=== PATIENT | female | born 1955 | race Caucasian/White ===

== ENCOUNTER 2016-11-03 10:39 | Inpatient (IN) | payer OTHER ==
[~2016-11-03] VITALS: Ht 160 cm; Wt 79.7 kg
[~2016-11-03 10:39] MED LIST: ALBU1AER9 INH; GABA1CAP4 PO; INSDGIPEN SC; METF1000 PO; OXY/15 PO; SERT50TA PO
[2016-11-03] MEDS ORDERED: MoRPHine SULFATE 4 MG/ML 1 ML CARP\\VIAL IV STA ×2 (10:59→15:08)
[2016-11-03] MEDS ORDERED: SODIUM CHLORIDE 0.9% 1000ML 1,000 ML IV STA ×2 (10:59→11:29)
[2016-11-03] MEDS ORDERED: VNTHFA/IN INH (11:13)
[2016-11-03] MEDS ORDERED: OPTIRAY 320 IV PRN (11:15)
[2016-11-03 11:17] LABS: URINE APPEARANCE CLEAR (CLEAR); URINE BILIRUBIN NEG (NEG); URINE COLOR YELLOW; URINE NITRITE NEG (NEG); URINE SPECIFIC GRAVITY 1.044 (1.000-1.030); UROBILINOGEN NEG (NEG); ZZUR CULT IF INDIC CLEAN CATCH NO
[2016-11-03 11:18] LABS: MANUAL MICROSCOPIC REQUIRED? NO; REVIEW REQ? NO
[2016-11-03 11:33] LABS: HEMATOCRIT 45.8 % (37-47); MEAN CELL VOLUME 82.7 fL (80-100); MEAN CORPUSCULAR HGB CONC 33.8 g/dl (32-36); MEAN PLATELET VOLUME 11.3 fL (7.4-10.4); PLATELET COUNT 248 K/uL (130-400); RED BLOOD COUNT 5.54 M/uL (4.2-5.4); WHITE BLOOD COUNT 11.41 K/uL (4.8-10.8)
[2016-11-03 11:55] LABS: BUN/CREATININE RATIO 17.9 (10-20); CALCIUM 9.6 mg/dl (8.5-10.1); CREATININE 0.72 mg/dl (0.60-1.20); POTASSIUM 3.9 mmol/L (3.5-5.1)
[2016-11-03 12:01] LABS: BASO % 0.4 %; BASO ABS # 0.04 K/uL (0-0.2); COMPLETE YES; EOS % 0.9 %; IG% 0.3 %; LYMPH % 44.2 %; LYMPH ABS # 5.04 K/uL (1.2-3.4); MONO % 4.6 %; NEUT % 49.6 %
[2016-11-03 12:07] LABS: BETA-HYDROXYBUTYRATE 1.5 mg/dL (0.2-2.81)
--- NOTE | 2016-11-03 13:53 | DIAGNOSTIC IMAGING REPORT ---
ABDOMEN AND PELVIS CT WITH IV CONTRAST CT DOSE: 696.65 mGy.cm HISTORY: Pain generalized abd and pelvic pain, bilat flank pain TECHNIQUE: Multiaxial CT images of the abdomen and pelvis were performed following the use of intravenous contrast. COMPARISON STUDY: 02/04/2016 FINDINGS: The lung bases are clear. Liver spleen and pancreas are uniform. Mild prominence of the biliary ductal system post cholecystectomy. This is stable compared to the prior exam. Kidneys are negative for hydronephrosis. The severity subtle wall thickening of the small bowel with slight degree of postcontrast hyperemia. Mild/moderate enteritis is considered. Bladder is midline. No evidence of bowel obstructive change. No evidence for abscess collection or obstruction. IMPRESSION: 1. Findings consistent with a generalized nonspecific small bowel enteritis. 2. No evidence for abscess collection or obstruction. 3. Prior cholecystectomy. Electronically signed by: Nick Burgess M.D. 11/03/2016 1:51 PM Dictated Date/Time: 11/03/2016 1:47 PM
--- NOTE | 2016-11-03 16:03 | EMERGENCY ROOM VISIT NOTE ---
History First contact with patient: 10:47 Chief Complaint: PAIN (GENERALIZED) Stated Complaint: PAIN IN HIPS, FREQUENT URINATION History of Present Illness The patient is a 60 year old female who presents to the Emergency Room with complaints of bilateral flank pain, abdominal pain, dysuria that has been progressively worsening for the past 4 days. Pain is constant, achy and sometimes sharp, radiates from the back into the upper abdomen, 11/01. She states that she thinks she has a UTI, and states she has had these before that caused a kidney infection and she had been admitted for this. She has been taking Tylenol and Aleve for pain with no improvement. She reports associated chills, nausea. She denies chest pain, shortness of breath, vomiting, diarrhea , constipation, rash. Review of Systems A complete 10 point review of systems was reviewed with the patient with pertinent positives and negatives as per history of present illness. All else were negative. Past Medical/Surgical History Medical Problems: (1) Abscess and cellulitis (2) COPD (chronic obstructive pulmonary disease) (3) DM (diabetes mellitus) (4) Leukocytosis Family History Patient reports no known family medical history. Social History Smoking Status: Current Every Day Smoker Alcohol Use: none Drug Use: none Marital Status: single Housing Status: lives alone Occupation Status: disabled Current/Historical Medications Scheduled Albuterol Hfa (Ventolin Hfa), 2-4 PUFFS INH Q6H Gabapentin (Gabapentin), 300 MG PO QID Insulin Glargine (Lantus Solostar), 15 UNIT SC QAM Metformin Hcl (Glucophage), 1 TAB PO BID Sertraline (Zoloft), 50 MG PO DAILY Allergies Coded Allergies: No Known Allergies (Unverified , 11/03/16) Physical Exam Vital Signs Date Time Temp Pulse Resp B/P (MAP) Pulse Ox O2 Delivery O2 Flow Rate FiO2 11/03/16 15:39 75 18 93 Room Air 11/03/16 13:30 65 18 150/64 94 Room Air 11/03/16 10:45 36.8 96 20 143/75 93 Room Air Physical Exam CONSTITUTIONAL: No acute distress. Well appearing and well nourished. Alert and oriented X 4 with normal affect. HEENT: Normocephalic, atraumatic. Pupils equal, round and reactive to light, EOMI. TMs normal. Pharynx normal. NECK: Supple, full active range of motion without discomfort. RESPIRATORY: Clear to auscultation bilaterally with no wheezing, crackles, rhonchi or stridor. Equal expansion bilaterally. CARDIOVASCULAR: Regular rate and rhythm with no murmurs, rubs or gallops. Normal peripheral perfusion. No edema. GASTROINTESTINAL: Moderate diffuse tenderness in the upper abdomen. + CVAT bilaterally. Soft, nondistended. Bowel sounds present in all quadrants. MUSCULOSKELETAL: Full range of motion of all joints without discomfort. INTEGUMENTARY: No rash or other significant dermatologic conditions noted. NEUROLOGIC: Cranial nerves II-XII grossly intact. No focal neurologic deficits noted. Medical Decision & Procedures ER Provider Diagnostic Interpretation: ABDOMEN AND PELVIS CT WITH IV CONTRAST CT DOSE: 696.65 mGy.cm HISTORY: Pain generalized abd and pelvic pain, bilat flank pain TECHNIQUE: Multiaxial CT images of the abdomen and pelvis were performed following the use of intravenous contrast. COMPARISON STUDY: 02/04/2016 FINDINGS: The lung bases are clear. Liver spleen and pancreas are uniform. Mild prominence of the biliary ductal system post cholecystectomy. This is stable compared to the prior exam. Kidneys are negative for hydronephrosis. The severity subtle wall thickening of the small bowel with slight degree of postcontrast hyperemia. Mild/moderate enteritis is considered. Bladder is midline. No evidence of bowel obstructive change. No evidence for abscess collection or obstruction. IMPRESSION: 1. Findings consistent with a generalized nonspecific small bowel enteritis. 2. No evidence for abscess collection or obstruction. 3. Prior cholecystectomy. Laboratory Results 11/03/16 11:15 Red Blood Count 5.54, Mean Corpuscular Volume 82.7, Mean Corpuscular Hemoglobin 28.0, Mean Corpuscular Hemoglobin Concent 33.8, Mean Platelet Volume 11.3, Neutrophils (%) (Auto) 49.6, Lymphocytes (%) (Auto) 44.2, Monocytes (%) (Auto) 4.6, Eosinophils (%) (Auto) 0.9, Basophils (%) (Auto) 0.4, Neutrophils # (Auto) 5.68, Lymphocytes # (Auto) 5.04, Monocytes # (Auto) 0.52, Eosinophils # (Auto) 0.10, Basophils # (Auto) 0.04 11/03/16 11:15 Test 11/03/16 10:50 11/03/16 11:15 11/03/16 13:29 Urine Color YELLOW Urine Appearance CLEAR (CLEAR) Urine pH 5.0 (4.5-7.5) Urine Specific [place] 1.044 (1.000-1.030) Urine Protein NEG (NEG) Urine Glucose (UA) 3+ (NEG) Urine Ketones NEG (NEG) Urine Occult Blood NEG (NEG) Urine Nitrite NEG (NEG) Urine Bilirubin NEG (NEG) Urine Urobilinogen NEG (NEG) Urine Leukocyte Esterase NEG (NEG) White Blood Count 11.41 K/uL (4.8-10.8) Red Blood Count 5.54 M/uL (4.2-5.4) Hemoglobin 15.5 g/dL (12.0-16.0) Hematocrit 45.8 % (37-47) Mean Corpuscular Volume 82.7 fL (80-100) Mean Corpuscular Hemoglobin 28.0 pg (25-34) Mean Corpuscular Hemoglobin Concent 33.8 g/dl (32-36) Platelet Count 248 K/uL (130-400) Mean Platelet Volume 11.3 fL (7.4-10.4) Neutrophils (%) (Auto) 49.6 % Lymphocytes (%) (Auto) 44.2 % Monocytes (%) (Auto) 4.6 % Eosinophils (%) (Auto) 0.9 % Basophils (%) (Auto) 0.4 % Neutrophils # (Auto) 5.68 K/uL (1.4-6.5) Lymphocytes # (Auto) 5.04 K/uL (1.2-3.4) Monocytes # (Auto) 0.52 K/uL (0.11-0.59) Eosinophils # (Auto) 0.10 K/uL (0-0.5) Basophils # (Auto) 0.04 K/uL (0-0.2) RDW Standard Deviation 44.5 fL (36.4-46.3) RDW Coefficient of Variation 14.8 % (11.5-14.5) Immature Granulocyte % (Auto) 0.3 % Immature Granulocyte # (Auto) 0.03 K/uL (0.00-0.02) Anion Gap 13.0 mmol/L (3-11) Est Creatinine Clear Calc Drug Dose 82.0 ml/min Estimated GFR () 104.8 Estimated GFR (Non- 90.4 BUN/Creatinine Ratio 17.9 (10-20) Calcium Level 9.6 mg/dl (8.5-10.1) Total Bilirubin 0.6 mg/dl (0.2-1) Direct Bilirubin 0.1 mg/dl (0-0.2) Aspartate Amino Transf (AST/SGOT) 34 U/L (15-37) Alanine Aminotransferase (ALT/SGPT) 124 U/L (12-78) Alkaline Phosphatase 143 U/L (45-117) Total Protein 7.6 gm/dl (6.4-8.2) Albumin 3.4 gm/dl (3.4-5.0) Lipase 1126 U/L (73-393) Beta-Hydroxybutyric Acid 1.50 mg/dL (0.2-2.81) Bedside Lactic Acid Venous 2.13 mmol/L (0.90-1.70) Medications Administered Medications (Trade) Dose Ordered Sig/Mckenzie Route Start Time Stop Time Status Last Admin Dose Admin Sodium Chloride 1,000 ml @ 999 mls/hr Q1H1M STAT IV 11/03/16 10:59 11/03/16 11:59 DC 11/03/16 11:15 999 MLS/HR Morphine Sulfate (MoRPHine SULFATE INJ) 4 mg NOW STAT IV 11/03/16 10:59 11/03/16 11:05 DC 11/03/16 11:37 4 MG Sodium Chloride 1,000 ml @ 999 mls/hr Q1H1M STAT IV 11/03/16 11:29 11/03/16 12:29 DC 11/03/16 12:05 999 MLS/HR Morphine Sulfate (MoRPHine SULFATE INJ) 4 mg NOW STAT IV 11/03/16 15:08 11/03/16 15:09 DC 11/03/16 15:17 4 MG Medical Decision CC: Patient presenting with complaint of bilateral flank pain, low back pain, dysuria, and feeling ill Interpretation of Labs: Mild leukocytosis, no anemia, hyperglycemia, no other significant electrolyte abnormalities, normal renal function. Significant only elevated lipase with elevated liver enzymes, though T bili is normal. Elevated lactic acid, improved after IV fluids. No UTI, but large glucose noted on UA which may account for dysuria. Differential Diagnosis: Includes, but not limited to UTI, pyelonephritis, gastritis, musculoskeletal pain, pancreatitis, choledocholithiasis, intra- abdominal infection, sepsis, among others. Medication Reconciliation: I attest that I have personally reviewed the patient' s current medication list. Vital signs review: I reviewed the patient's vital signs and interpret them as follows: T: Afebrile; BP: Hypertensive; HR: Tachycardic; RR: Within normal limits; Pulse Ox: Within normal limits on room air. Blood pressure screening: The patient was found to have an elevated blood pressure and was referred to their primary doctor for recheck and further treatment. Summary: Patient was evaluated at bedside, history of physical exam performed. Patient is alert and in no acute distress, but appears uncomfortable and in pain. She has diffuse tenderness across the upper abdomen and bilateral CVA tenderness. Neurologic exam is normal with no focal deficits, normal strength and sensation in the lower extremities. Orders were placed at bedside for labs, urinalysis, IV fluids, CT abdomen/ pelvis to evaluate for pyelonephritis or other acute abdominal issue. Patient discussed with Dr. Vela, who agrees with my assessment and plan. Labs reviewed as above, significant for leukocytosis, elevated lactic acid, and elevated lipase with increased liver enzymes. CT of the abdomen/pelvis shows generalized nonspecific small bowel enteritis, which is of unknown significance given patient's lack of GI symptoms. I discussed CT with the radiologist, no evidence for acute pancreatitis or pancreatic abscess/mass on CT. Patient reassessed multiple times throughout ED stay, she continues to require IV pain medication for management of her pain. Right upper quadrant ultrasound pending to evaluate for choledocholithiasis as possible cause acute pancreatitis. Patient updated on all results and plan for admission, she is agreeable to this. Patient discussed with Dr. Tran, hospitalist, who agrees to admission. Impression Primary Impression: Pancreatitis, acute Departure Information Dispostion Admitted as an inpatient Condition FAIR Referrals Vanessa Fontenot MD (PCP) Patient Instructions My [facility] Problem Qualifiers Primary Impression: Pancreatitis, acute Pancreatitis type: unspecified pancreatitis type Acute pancreatitis complication: unspecified Qualified Codes: K85.90 - Acute pancreatitis without necrosis or infection, unspecified
--- NOTE | 2016-11-03 16:08 | DIAGNOSTIC IMAGING REPORT ---
ABDOMINAL ULTRASOUND, RIGHT UPPER QUADRANT HISTORY: Acute pancreatitis. COMPARISON: CT of the abdomen and pelvis November 03, 2016. FINDINGS: Hepatic echogenicity is increased. There is slight dilatation of the common bile duct status post cholecystectomy. The common bile duct measures 9 mm in caliber. No common bile duct calculi are identified although the distal common bile duct is obscured. The pancreatic body is normal. The head and tail are obscured. There is no right hydronephrosis. IMPRESSION: 1. Mild dilatation of the common bile duct. This is likely related to prior cholecystectomy but could be correlated with obstructive liver function tests. No choledocholithiasis identified by sonography. 2. Partially obscured pancreas. 3. Fatty liver. Electronically signed by: Gordo Jones M.D. 11/03/2016 4:07 PM Dictated Date/Time: 11/03/2016 4:05 PM
[2016-11-03] MEDS ORDERED: ALBUTEROL HFA 8 GM INHALER INH PRN (18:00)
[2016-11-03] MEDS ORDERED: MAGNESIUM HYDROXIDE SUSP 30 ML UDC PO PRN (18:00)
[2016-11-03] MEDS ORDERED: POLYETHYLENE (MIRALAX) 17 GM PACK PO PRN (18:00)
[2016-11-03] MEDS ORDERED: ONDANSETRON INJ 2 MG/ML 2 ML VIAL IV PRN (18:00)
[2016-11-03] MEDS ORDERED: ACETAMINOPHEN 325 MG TAB PO PRN (18:00)
[2016-11-03] MEDS ORDERED: ALUMINUM/MAGNESIUM/SIMETH (MAALOX MAX) 30 ML UDC PO PRN (18:00)
[2016-11-03] MEDS ORDERED: ZOLPIDEM TARTRATE 5 MG TAB PO PRN (18:00)
[2016-11-03 18:15] VITALS: BP 114/64; PULSE 66; TEMP 36.8; O2SAT 94; Ht 160 cm; Wt 79.7 kg
--- NOTE | 2016-11-03 18:29 | History and Physical ---
History & Physical Date & Time of Service: Nov 03, 2016 at 18:07 Chief Complaint: Pain In Hips, Frequent Urination Primary Care Physician: Vanessa Fontenot MD History of Present Illness Source: patient 60 y/o F Hx DM 2 , COPD, smoker. She presents with moderate to severe abdominal pain for 3-4 days primarily across her upper quadrants in addition to B/L flank pain and burning with urination. She presumed that this was due to a UTI however her UA is negative. A CT abdomen was obtained which revealed a degree of enteritis only. Initial labs reveal hyperglycemia and an elevated lipase. She denies significant SOB, N/V, fevers. She has no history of pancreatitis or gastritis. Past Medical/Surgical History Medical Problems: (1) COPD (chronic obstructive pulmonary disease) Status: Chronic (2) DM (diabetes mellitus) Status: Chronic 3) Smoker Family History Patient reports no known family medical history. Father due to [place] at age 50 Mother due to COPD age 74 Social History Smokes 1/2 pack daily - does not drink any alcohol Smoking Status: Current Every Day Smoker Drug Use: none Marital Status: single Occupational Status: disabled Multi-Drug Resistant Organisms History of MDRO: Yes Type of MDRO: MRSA Allergies Coded Allergies: No Known Allergies (Unverified , 11/03/16) Home Medications Scheduled Albuterol Hfa (Ventolin Hfa), 2-4 PUFFS INH Q6H Gabapentin (Gabapentin), 300 MG PO QID Insulin Glargine (Lantus Solostar), 15 UNIT SC QAM Metformin Hcl (Glucophage), 1 TAB PO BID Sertraline (Zoloft), 50 MG PO DAILY Review of Systems Constitutional: No fever, No chills, No sweats Eyes: No worsening of vision ENT: No hearing loss, No unusual epistaxis, No nasal symptoms Respiratory: + cough (chronic), + wheezing (chronic), No sputum Cardiovascular: No chest pain, No orthopnea, No PND Abdomen: + pain (mostly in upper quadrants), No nausea, No vomiting, No diarrhea Musculoskeletal: No joint pain Genitourinary - Female: No dysuria, No urinary frequency, No urinary urgency Neurologic: No memory loss, No paralysis Psychiatric: No depression symptoms Endocrine: No fatigue Hematologic / Lymphatic: No abnormal bleeding/bruising Integumentary: No rash Allergic / Immunologic: No environmental allergies Physical Exam Vital Signs Date Time Temp Pulse Resp B/P (MAP) Pulse Ox O2 Delivery O2 Flow Rate FiO2 11/03/16 15:39 75 18 93 Room Air 11/03/16 13:30 65 18 150/64 94 Room Air 11/03/16 10:45 36.8 96 20 143/75 93 Room Air General Appearance: WD/WN, no apparent distress Head: normocephalic Eyes: normal inspection, EOMI ENT: normal ENT inspection, pharynx normal Neck: supple, no adenopathy, thyroid normal, no JVD Respiratory/Chest: chest non-tender, + wheezing (mild b/l wheezind), + pertinent finding (Poor b/l air movement) Cardiovascular: regular rate, rhythm, no edema, no gallop, no JVD, no murmur Abdomen/GI: normal bowel sounds, + tenderness (Diffuse - increased tenderness in upper quadrants b/l) Genitourinary - Female: external genitalia normal, normal pelvic exam, normal cervix Back: normal inspection, no CVA tenderness, no muscle spasm, normal range of motion Extremities/Musculoskelatal: normal inspection, no calf tenderness, normal capillary refill, no pedal edema, normal range of motion 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: 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41 4.8-10.8 K/uL Red Blood Count 5.54 4.2-5.4 M/uL Hemoglobin 15.5 12.0-16.0 g/dL Hematocrit 45.8 37-47 % Mean Corpuscular Volume 82.7 80-100 fL Mean Corpuscular Hemoglobin 28.0 25-34 pg Mean Corpuscular Hemoglobin Concent 33.8 32-36 g/dl Platelet Count 248 130-400 K/uL Mean Platelet Volume 11.3 7.4-10.4 fL Neutrophils (%) (Auto) 49.6 % Lymphocytes (%) (Auto) 44.2 % Monocytes (%) (Auto) 4.6 % Eosinophils (%) (Auto) 0.9 % Basophils (%) (Auto) 0.4 % Neutrophils # (Auto) 5.68 1.4-6.5 K/uL Lymphocytes # (Auto) 5.04 1.2-3.4 K/uL Monocytes # (Auto) 0.52 0.11-0.59 K/uL Eosinophils # (Auto) 0.10 0-0.5 K/uL Basophils # (Auto) 0.04 0-0.2 K/uL RDW Standard Deviation 44.5 36.4-46.3 fL RDW Coefficient of Variation 14.8 11.5-14.5 % Immature Granulocyte % (Auto) 0.3 % Immature Granulocyte # (Auto) 0.03 0.00-0.02 K/uL Sodium Level 135 136-145 mmol/L Potassium Level 3.9 3.5-5.1 mmol/L Chloride Level 99 98-107 mmol/L Carbon Dioxide Level 23 21-32 mmol/L Anion Gap 13.0 3-11 mmol/L Blood Urea Nitrogen 13 7-18 mg/dl Creatinine 0.72 0.60-1.20 mg/dl Est Creatinine Clear Calc Drug Dose 82.0 ml/min Estimated GFR () 104.8 Estimated GFR (Non- 90.4 BUN/Creatinine Ratio 17.9 10-20 Random Glucose 368 70-99 mg/dl Calcium Level 9.6 8.5-10.1 mg/dl Total Bilirubin 0.6 0.2-1 mg/dl Direct Bilirubin 0.1 0-0.2 mg/dl Aspartate Amino Transf (AST/SGOT) 34 15-37 U/L Alanine Aminotransferase (ALT/SGPT) 124 12-78 U/L Alkaline Phosphatase 143 45-117 U/L Total Protein 7.6 6.4-8.2 gm/dl Albumin 3.4 3.4-5.0 gm/dl Lipase 1126 73-393 U/L Beta-Hydroxybutyric Acid 1.50 0.2-2.81 mg/dL Bedside Lactic Acid Venous 3.38 2.13 0.90-1.70 mmol/L Test 11/03/16 17:59 11/03/16 18:02 Range/Units Microbiology Results 11/03/16 Blood Culture, Received Pending 11/03/16 Blood Culture, Received Pending Diagnostic Radiology CT abdomen 1. Findings consistent with a generalized nonspecific small bowel enteritis. 2. No evidence for abscess collection or obstruction Impression Assessment and Plan 60 y/o F Hx DM 2 , COPD, smoker. She presents with moderate to severe abdominal pain for 3-4 days primarily across her upper quadrants in addition to B/L flank pain and burning with urination. She presumed that this was due to a UTI however her UA is negative. A CT abdomen was obtained which revealed a degree of enteritis only. Initial labs reveal hyperglycemia and an elevated lipase. She denies significant SOB, N/V, fevers. She has no history of pancreatitis or gastritis. 1) Abdominal pain - elevated lipase - imaging is more consistent with enteritis - exam does not localize pain well. We will treat for presumed pancreatitis. We will not start antibiotics currently as she is not febrile and her enteritis may be self-limiting. She is placed on aggressive IVF, narcotics and will be kept on clears pending AM reassessment. We will check a triglyceride level as she is diabetic and we do not have an etiology for pancreatitis. 2) DM - placed on Lantus and a sliding scale 3) COPD - continued smoking - advised that cessation is needed. Albuterol PRN Full code - Heparin prophylaxis Total time for this admit including review of labs, meds, records - discussion with pt and ER attending - 32 min Level of Care Med/Surg Resuscitation Status FULL RESUSCITATION VTE Prophylaxis VTE Risk Assessment Done? Y/N: Yes Risk Level: Low Given or contraindicated: Unfractionated heparin SQ
[2016-11-03] MEDS ORDERED: GLUCOSE 40% GEL 15 GM TUBE PO PRN (18:30)
[2016-11-03] MEDS ORDERED: GLUCOSE 10 TABS/TUBE PO PRN (18:30)
[2016-11-03] MEDS ORDERED: GLUCAGON FOR INJ 1 MG VIAL SQ PRN (18:30)
[2016-11-03] MEDS ORDERED: DEXTROSE 50% 50 ML SYR IV PRN (18:30)
[2016-11-03] MEDS: HYDROmorphone INJ 0.5 MG/0.5 ML SYR IV PRN ×2 (18:39→21:12)
[2016-11-03 18:51] LABS: INR 0.9 (0.9-1.1); PARTIAL THROMBOPLASTIN RATIO 1.1; PROTHROMBIN TIME (PATIENT) 9.6 SECONDS (9.0-12.0)
[2016-11-03 18:53] VITALS: BP 131/79; PULSE 61; TEMP 36.8; O2SAT 93
[2016-11-03] MEDS: NSS + 20MEQ KCL 1000ML 1,000 ML IV SCH (19:45)
[2016-11-03] MEDS ORDERED: NURSING VERBAL MED ORDER ONE (19:45)
[2016-11-03] MEDS: GABAPENTIN 300 MG CAP PO SCH (21:12)
[2016-11-03] MEDS: INSULIN ASPART 100 UNITS/ML 3 ML PEN SC SCH (21:20)
[2016-11-03] MEDS: HEPARIN SOD 5000 UNIT/0.5 ML CARP SQ SCH (21:21)
[2016-11-04 00:29] VITALS: BP 101/61; PULSE 65; TEMP 36.7; O2SAT 92
[2016-11-04] MEDS: HYDROmorphone INJ 0.5 MG/0.5 ML SYR IV PRN ×7 (00:29→21:26)
[2016-11-04] MEDS: INSULIN ASPART 100 UNITS/ML 3 ML PEN SC SCH ×5 (00:31→21:24)
[2016-11-04] MEDS: NSS + 20MEQ KCL 1000ML 1,000 ML IV SCH ×2 (02:31→09:54)
[2016-11-04] MEDS: HEPARIN SOD 5000 UNIT/0.5 ML CARP SQ SCH ×3 (05:26→21:25)
[2016-11-04 07:07] VITALS: BP 128/64; PULSE 58; TEMP 37.1; O2SAT 94
[2016-11-04 07:26] LABS: HEMATOCRIT 39.1 % (37-47); MEAN CELL VOLUME 82.3 fL (80-100); MEAN PLATELET VOLUME 10.9 fL (7.4-10.4); PLATELET COUNT 178 K/uL (130-400); RED BLOOD COUNT 4.75 M/uL (4.2-5.4); WHITE BLOOD COUNT 5.49 K/uL (4.8-10.8)
[2016-11-04] MEDS: SERTRALINE HCL 50 MG TAB PO SCH (07:33)
[2016-11-04] MEDS: GABAPENTIN 300 MG CAP PO SCH ×4 (07:33→21:25)
[2016-11-04] MEDS: NICOTINE 14 MG/24 HR TDSY TD SCH (07:34)
[2016-11-04] MEDS: INSULIN GLARGINE SOLOSTAR 100 UNITS/ML 3 ML PEN SC SCH (07:37)
[2016-11-04 07:55] LABS: BUN/CREATININE RATIO 16.6 (10-20); CALCIUM 8.1 mg/dl (8.5-10.1); CREATININE 0.43 mg/dl (0.60-1.20); POTASSIUM 4.3 mmol/L (3.5-5.1)
--- NOTE | 2016-11-04 13:12 | Hospitalist Progress Note ---
Hospitalist Progress Note Date of Service Nov 04, 2016. Subjective Pt evaluation today including: conversation w/ patient, physical exam, chart review, lab review, review of studies, conversation w/ programmer analyst consultant, review of inpatient medication list Voiding: no voiding problems, no incontinence Patient states she is feeling well. +diffuse abdominal pain but improving. +diffuse muscle/joint aches, fatigue, and ongoing headache x1 week. Denies any recent rashes/tick bites. Currently NPO, requesting a diet. Patient denies any fever, chills, sweats, lightheadedness, dizziness, vision changes, CP, palpitations, edema, SOB, wheezing, cough, nausea, vomiting, diarrhea, urinary symptoms, melena, numbness/tingling, weakness, anxiety/ depression, active bleeding, or new skin discoloration/changes. Medications Current Inpatient Medications Medications (Trade) Dose Ordered Sig/Mckenzie Route Start Time Stop Time Status Last Admin Dose Admin Albuterol (Ventolin Hfa Inhaler) 2 puffs Q6H PRN INH 11/03/16 18:00 12/03/16 17:59 Gabapentin (Neurontin Cap) 300 mg QID PO 11/03/16 21:00 12/03/16 20:59 11/04/16 07:33 300 MG Insulin Glargine (Lantus Solostar Pen) 15 units QAM SC 11/04/16 09:00 12/04/16 08:59 11/04/16 07:37 15 UNITS Sertraline HCl (Zoloft Tab) 50 mg DAILY PO 11/04/16 09:00 12/04/16 08:59 11/04/16 07:33 50 MG Insulin Aspart (novoLOG ASPART) SLIDING SCALE G... Q6 SC 11/03/16 18:00 12/03/16 17:59 11/04/16 11:58 1 UNITS Hydromorphone HCl (Dilaudid Inj) 0.5 mg Q3H PRN IV 11/03/16 18:00 11/17/16 17:59 11/04/16 11:55 0.5 MG Heparin Sodium (Porcine) (Heparin Sq 5000 Unit/0.5ml) 5,000 unit Q8 SQ 11/03/16 22:00 12/03/16 21:59 11/04/16 05:26 5,000 UNIT Acetaminophen (Tylenol Tab) 650 mg Q4H PRN PO 11/03/16 18:00 12/03/16 17:59 Al Hydrox/Mg Hydrox/Simethicone (Maalox Max Susp) 15 ml Q4H PRN PO 11/03/16 18:00 12/03/16 17:59 Magnesium Hydroxide (Milk Of Magnesia Susp) 30 ml Q6H PRN PO 11/03/16 18:00 12/03/16 17:59 Polyethylene (Miralax Powder Packet) 17 gm DAILY PRN PO 11/03/16 18:00 12/03/16 17:59 Zolpidem Tartrate (Ambien Tab) 5 mg HSZ PRN PO 11/03/16 18:00 12/03/16 17:59 Ondansetron HCl (Zofran Inj) 4 mg Q6H PRN IV 11/03/16 18:00 12/03/16 17:59 11/03/16 18:38 4 MG Potassium Chloride/Sodium Chloride 1,000 ml @ 150 mls/hr Q6H40M IV 11/03/16 19:30 11/04/16 15:29 11/04/16 09:54 150 MLS/HR Glucose (Glucose 40% Gel) 15-30 GRAMS 15 GRAMS... UD PRN PO 11/03/16 18:30 12/03/16 18:29 Glucose (Glucose Chew Tab) 4-8 Tablets 4 Tabl... UD PRN PO 11/03/16 18:30 12/03/16 18:29 Dextrose (Dextrose 50% 50ML Syringe) 25-50ML OF 50% DW IV FOR... UD PRN IV 11/03/16 18:30 12/03/16 18:29 Glucagon (Glucagon Inj) 1 mg UD PRN SQ 11/03/16 18:30 12/03/16 18:29 Nicotine (Nicoderm Cq 14MG Patch) 1 patch QAM TD 11/04/16 09:00 12/04/16 08:59 11/04/16 07:34 1 PATCH Miscellaneous (Remove Nicoderm Patch) 1 ea QAM N/A 11/04/16 09:00 12/04/16 08:59 Clotrimazole (Clotrimazole Vag Crm) 1 appln DAILY PV 11/05/16 09:00 11/12/16 08:59 Metformin HCl (Glucophage Tab) 1,000 mg BID PO 11/05/16 09:00 12/05/16 08:59 Objective Vital Signs Date Time Temp Pulse Resp B/P (MAP) Pulse Ox O2 Delivery O2 Flow Rate FiO2 11/04/16 08:00 Room Air 11/04/16 07:07 37.1 58 18 128/64 (85) 94 Room Air 11/04/16 00:29 36.7 65 18 101/61 (74) 92 Room Air 11/04/16 00:05 Room Air 11/03/16 18:53 36.8 61 18 131/79 (96) 93 Room Air 11/03/16 18:15 36.8 66 17 114/64 94 Room Air 11/03/16 18:00 66 17 114/64 94 Room Air 11/03/16 15:39 75 18 93 Room Air 11/03/16 13:30 65 18 150/64 94 Room Air Physical Exam General Appearance: no apparent distress Eyes: normal inspection, PERRL ENT: hearing grossly normal Neck: supple Respiratory/Chest: no respiratory distress, no accessory muscle use, + wheezing (slight expiratory wheeze throughout upper lung ont[place] ) Cardiovascular: regular rate, rhythm Abdomen: normal bowel sounds, soft, + tenderness (mild deep ttp of diffuse abdomen ) Extremities: no pedal edema, no calf tenderness 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iatric: alert, normal mood/affect, oriented x 3 Skin: normal color, warm/dry, no rash Laboratory Results Last 24 Hours Test 11/03/16 13:29 11/03/16 19:22 11/04/16 00:02 11/04/16 05:22 Bedside Lactic Acid Venous 2.13 mmol/L Bedside Glucose 246 mg/dl 212 mg/dl 241 mg/dl Test 11/04/16 07:11 11/04/16 10:45 11/04/16 11:17 White Blood Count 5.49 K/uL Red Blood Count 4.75 M/uL Hemoglobin 13.3 g/dL Hematocrit 39.1 % Mean Corpuscular Volume 82.3 fL Mean Corpuscular Hemoglobin 28.0 pg Mean Corpuscular Hemoglobin Concent 34.0 g/dl RDW Standard Deviation 44.6 fL RDW Coefficient of Variation 14.8 % Platelet Count 178 K/uL Mean Platelet Volume 10.9 fL Sodium Level 138 mmol/L Potassium Level 4.3 mmol/L Chloride Level 106 mmol/L Carbon Dioxide Level 25 mmol/L Anion Gap 7.0 mmol/L Blood Urea Nitrogen 7 mg/dl Creatinine 0.43 mg/dl Est Creatinine Clear Calc Drug Dose 137.3 ml/min Estimated GFR () 127.2 Estimated GFR (Non- 109.8 BUN/Creatinine Ratio 16.6 Random Glucose 234 mg/dl Lactic Acid Level 0.8 mmol/L Calcium Level 8.1 mg/dl Total Bilirubin 1.5 mg/dl Direct Bilirubin 0.8 mg/dl Aspartate Amino Transf (AST/SGOT) 645 U/L Alanine Aminotransferase (ALT/SGPT) 487 U/L Alkaline Phosphatase 147 U/L Total Protein 6.1 gm/dl Albumin 2.8 gm/dl Lipase 585 U/L Bedside Glucose 199 mg/dl Assessment and Plan 60 y/o F Hx DM 2 , COPD, smoker. She presents with moderate to severe abdominal pain for 3-4 days primarily across her upper quadrants in addition to B/L flank pain and burning with urination. She presumed that this was due to a UTI however her UA is negative. A CT abdomen was obtained which revealed a degree of enteritis only. Initial labs reveal hyperglycemia and an elevated lipase. She denies significant SOB, N/V, fevers. She has no history of pancreatitis or gastritis. Abdominal pain w/ elevated lipase, ?secondary to pancreatitis vs enteritis: - Admitted to med/surg - Abdominal CT on 11/03- Findings consistent with a generalized nonspecific small bowel enteritis. No evidence for abscess collection or obstruction. Prior cholecystectomy. - Abdominal US on 11/03- Mild dilatation of the common bile duct. This is likely related to prior cholecystectomy but could be correlated with obstructive liver function tests. No choledocholithiasis identified by sonography. Partially obscured pancreas. Fatty liver. - IV NSS + KCL @ 150 ml/hr - Bowel rest, advance as tolerated - IV Dilaudid 0.5 mg q3 hrs PRN - Lipase trending down- 1126 at admission to 585 - LFTs trend upwards- ?secondary to viral cause- will repeat this afternoon and consider GI consultation - No antibiotics at this time- afebrile, no WBC- continue to monitor - Triglycerides- 280 - BCx pending - Lyme screen pending T2DM w/ hyperglycemia/neuropathy: - Last hA1C in 07/08= 10.3% - Metformin 1000 mg BID held - Continue Lantus 15 u QAM and BSG ACHS w/ sliding insulin scale - Continue Gabapentin 300 mg QID Yeast infection: Lotrimin qday x7 days COPD: Continue Albuterol inhaler PRN Tobacco Abuse: - Smoking cessation counselling - Nicotine patch Depression: Zoloft 50 mg daily DVT Prophylaxis: Heparin Code Status: LEVEL I, FULL Dispo: Discharge to home once medically stable
[2016-11-04 13:32] LABS: LYME DISEASE AB IGG NEG (NEG)
[2016-11-04 13:35] LABS: LYME DISEASE AB IGM NEG (NEG)
[2016-11-04] MEDS: CLOTRIMAZOLE VAG CR 45 GM TUBE PV SCH (14:09)
[2016-11-04 14:43] VITALS: BP 151/70; PULSE 73; TEMP 36.8; O2SAT 95
[2016-11-04 16:07] LABS: HEPATITIS B AB NEG
--- NOTE | 2016-11-04 17:03 | Gastrointestinal Consultation ---
Gastrointestinal Consultation Date of Consultation: Nov 04, 2016 Attending Physician: Vance Adams Consulting Physician: Ailyn Dubois Reason for Consultation: Elevated LFTs History of Present Illness Patient is a 60 year old female w PMHx of COPD, DM, OA, chronic pain, who presented to ED yesterday w c/o abd pain, especially on RUQ, bilateral flank pain, dysuria. She suspected she has UTI but UA negative. She also has associated subjective fever, chills, joint aches. No nausea, vomiting, + loose stools. She denies any sick contact, recent travels, new medications. Though admits to take Gabapentin on daily basis and at times up to 10 tabs of APAP 325mg daily for chronic joint pains. CT abd/pelvis showed non specific enteritis w/o abscess or fluid collection. She is s/p cholecystectomy, + mild biliary dilation but likely due to post cholecystectomy status. At admission she was noted to have transaminitis AST/ALT 100s, now increased to 700s. Tbili now 1.5, AP 150. She admits to heavy ETOH use >10 yrs ago, + marijuana over 1 year ago. Denies any ilicit drugs otherwise, + tattoos, no body piercing or blood transfusions. No family hx of autoimmune liver diseases. She has pets and hx of tick bites, Lyme test negative. Past Medical/Surgical History Medical Problems: (1) Blood glucose elevated Status: Acute (2) Cellulitis of back Status: Acute (3) Failure of outpatient treatment Status: Acute (4) Pancreatitis, acute Status: Acute (5) Right sided abdominal pain Status: Acute Past Medical History: See HPI Past Surgical History: Lap cholecystectomy Tubal Ligation Family History Patient reports no known family medical history. Social History Smoking Status: Current Every Day Smoker Alcohol Use: none (hx of heavy use) Drug Use: marijuana Marital Status: single Housing Status: lives alone Occupation Status: disabled Allergies Coded Allergies: No Known Allergies (Unverified , 11/03/16) Current Medications Home Meds and Scripts Medications Dose Route/Sig Max Daily Dose Days Date Category Ventolin Hfa (Albuterol) 200 Puffs/09983 Mcg Aers 2-4 Puffs INH Q6H 11/03/16 Reported Zoloft (Sertraline HCl) 50 Mg Tab 50 Mg PO DAILY 09/06/15 Reported Lantus Solostar (Insulin Glargine) 100 Unit/Ml Inj 15 Unit SC QAM 07/07/15 Rx Glucophage (Metformin Hcl) 1,000 Mg Tab 1 Tab PO BID 07/07/15 Rx Gabapentin 300 Mg Cap 300 Mg PO QID 03/30/14 Reported Review of Systems Constitutional: + see HPI, + fever, + chills Respiratory: No cough, No shortness of breath Cardiac: No chest pain Abdomen: + pain, + diarrhea, No nausea, No vomiting Musculoskeletal: + joint pain Endo: + fatigue Skin: No rash, No itch, No jaundice Physical Exam Date Time Temp Pulse Resp B/P (MAP) Pulse Ox O2 Delivery O2 Flow Rate FiO2 11/04/16 16:00 Room Air 11/04/16 14:43 36.8 73 18 151/70 (97) 95 Room Air 11/04/16 08:00 Room Air 11/04/16 07:07 37.1 58 18 128/64 (85) 94 Room Air 11/04/16 00:29 36.7 65 18 101/61 (74) 92 Room Air 11/04/16 00:05 Room Air 11/03/16 18:53 36.8 61 18 131/79 (96) 93 Room Air 11/03/16 18:15 36.8 66 17 114/64 94 Room Air 11/03/16 18:00 66 17 114/64 94 Room Air General Appearance: WD/WN, no apparent distress, + obese Eyes: normal inspection, PERRL, EOMI Neck: supple, no JVD, trachea midline Respiratory/Chest: normal breath sounds, no respiratory distress, no accessory muscle use Cardiovascular: regular rate, rhythm, no gallop, no murmur Abdomen: normal bowel sounds, soft, + tenderness (RUQ) Extremities: normal inspection, no pedal edema, no calf tenderness 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: alert, normal mood/affect, oriented x 3 Skin: normal color, no jaundice, no rash Laboratory Results Last 24 Hours Test 11/03/16 19:22 11/04/16 00:02 11/04/16 05:22 11/04/16 07:11 Bedside Glucose 246 mg/dl 212 mg/dl 241 mg/dl White Blood Count 5.49 K/uL Red Blood Count 4.75 M/uL Hemoglobin 13.3 g/dL Hematocrit 39.1 % Mean Corpuscular Volume 82.3 fL Mean Corpuscular Hemoglobin 28.0 pg Mean Corpuscular Hemoglobin Concent 34.0 g/dl RDW Standard Deviation 44.6 fL RDW Coefficient of Variation 14.8 % Platelet Count 178 K/uL Mean Platelet Volume 10.9 fL Sodium Level 138 mmol/L Potassium Level 4.3 mmol/L Chloride Level 106 mmol/L Carbon Dioxide Level 25 mmol/L Anion Gap 7.0 mmol/L Blood Urea Nitrogen 7 mg/dl Creatinine 0.43 mg/dl Est Creatinine Clear Calc Drug Dose 137.3 ml/min Estimated GFR () 127.2 Estimated GFR (Non- 109.8 BUN/Creatinine Ratio 16.6 Random Glucose 234 mg/dl Lactic Acid Level 0.8 mmol/L Calcium Level 8.1 mg/dl Total Bilirubin 1.5 mg/dl Direct Bilirubin 0.8 mg/dl Aspartate Amino Transf (AST/SGOT) 645 U/L Alanine Aminotransferase (ALT/SGPT) 487 U/L Alkaline Phosphatase 147 U/L Total Protein 6.1 gm/dl Albumin 2.8 gm/dl Lipase 585 U/L Test 11/04/16 10:45 11/04/16 11:17 11/04/16 12:53 11/04/16 15:20 Lyme Disease IgG Antibody NEG Lyme Disease IgM Antibody NEG Bedside Glucose 199 mg/dl Total Bilirubin 1.5 mg/dl Direct Bilirubin 0.7 mg/dl Aspartate Amino Transf (AST/SGOT) 714 U/L Alanine Aminotransferase (ALT/SGPT) 560 U/L Alkaline Phosphatase 158 U/L Total Protein 5.9 gm/dl Albumin 2.7 gm/dl Acetaminophen Level < 2 ug/ml Hepatitis B Surface Antibody NEG Test 11/04/16 16:14 11/04/16 16:47 Bedside Glucose 285 mg/dl Impression Patient is a 60 year old female seen for elevated LFTs, most specifically transaminitis, not obstructive pattern as Tbili and AP not markedly up. Suspect viral infections given symptoms of joint aches, fever, chills, malaise on presentation, also CT finding of non specific enteritis. Plan - Obtain serologies to r/o autoimmune, hereditary liver diseases; viral, acute hepatitis, APAP level pending. - Monitor LFTs - Avoid hepatotoxic meds - Will follows
[2016-11-04 23:03] VITALS: BP 153/77; PULSE 59; TEMP 36.7; O2SAT 92
[2016-11-05] MEDS: HYDROmorphone INJ 0.5 MG/0.5 ML SYR IV PRN ×7 (03:42→23:34)
[2016-11-05] MEDS: HEPARIN SOD 5000 UNIT/0.5 ML CARP SQ SCH ×3 (05:29→20:48)
[2016-11-05 07:09] VITALS: BP 149/83; PULSE 66; TEMP 36.9; O2SAT 95
[2016-11-05] MEDS: SERTRALINE HCL 50 MG TAB PO SCH (07:24)
[2016-11-05] MEDS: GABAPENTIN 300 MG CAP PO SCH ×4 (07:24→20:35)
[2016-11-05] MEDS: CLOTRIMAZOLE VAG CR 45 GM TUBE PV SCH (07:24)
[2016-11-05] MEDS: NICOTINE 14 MG/24 HR TDSY TD SCH (07:25)
[2016-11-05 07:56] LABS: BUN/CREATININE RATIO 11.6 (10-20); CALCIUM 9.1 mg/dl (8.5-10.1); CREATININE 0.44 mg/dl (0.60-1.20); POTASSIUM 4.2 mmol/L (3.5-5.1)
[2016-11-05 07:59] LABS: ALB/GLOB RATIO 0.8 (0.9-2)
[2016-11-05] MEDS: INSULIN ASPART 100 UNITS/ML 3 ML PEN SC SCH ×4 (08:53→20:48)
[2016-11-05] MEDS: INSULIN GLARGINE SOLOSTAR 100 UNITS/ML 3 ML PEN SC SCH (08:54)
[2016-11-05] MEDS ORDERED: CLOTRIMAZOLE VAG CR 45 GM TUBE PV SCH (09:00)
[2016-11-05] MEDS ORDERED: METFORMIN HCL 500 MG TAB PO SCH (09:00)
--- NOTE | 2016-11-05 11:32 | Gastroenterology Progress Note ---
Progress Note Date of Service: Nov 05, 2016 Subjective Pt evaluation today including: conversation w/ patient, physical exam, chart review, lab review, review of inpatient medication list Pt still c/o RUQ abd pain. Denies any n/v. Moved bowels x 2 this AM, loose. Noted Hep C Ab positive, RNA quant pending. LFTs w/o significant improvement. Review of Systems Constitutional: No fever, No chills Respiratory: No cough, No shortness of breath Cardiac: No chest pain Abdomen: + pain (RUQ), No nausea, No vomiting Endo: + fatigue Skin: No rash, No itch, No jaundice Medications Current Inpatient Medications Medications (Trade) Dose Ordered Sig/Mckenzie Route Start Time Stop Time Status Last Admin Dose Admin Albuterol (Ventolin Hfa Inhaler) 2 puffs Q6H PRN INH 11/03/16 18:00 12/03/16 17:59 Gabapentin (Neurontin Cap) 300 mg QID PO 11/03/16 21:00 12/03/16 20:59 11/05/16 07:24 300 MG Insulin Glargine (Lantus Solostar Pen) 15 units QAM SC 11/04/16 09:00 12/04/16 08:59 11/05/16 08:54 15 UNITS Sertraline HCl (Zoloft Tab) 50 mg DAILY PO 11/04/16 09:00 12/04/16 08:59 11/05/16 07:24 50 MG Hydromorphone HCl (Dilaudid Inj) 0.5 mg Q3H PRN IV 11/03/16 18:00 11/17/16 17:59 11/05/16 10:32 0.5 MG Heparin Sodium (Porcine) (Heparin Sq 5000 Unit/0.5ml) 5,000 unit Q8 SQ 11/03/16 22:00 12/03/16 21:59 11/05/16 05:29 5,000 UNIT Acetaminophen (Tylenol Tab) 650 mg Q4H PRN PO 11/03/16 18:00 12/03/16 17:59 Al Hydrox/Mg Hydrox/Simethicone (Maalox Max Susp) 15 ml Q4H PRN PO 11/03/16 18:00 12/03/16 17:59 Magnesium Hydroxide (Milk Of Magnesia Susp) 30 ml Q6H PRN PO 11/03/16 18:00 12/03/16 17:59 11/05/16 07:26 30 ML Polyethylene (Miralax Powder Packet) 17 gm DAILY PRN PO 11/03/16 18:00 12/03/16 17:59 Zolpidem Tartrate (Ambien Tab) 5 mg HSZ PRN PO 11/03/16 18:00 12/03/16 17:59 Ondansetron HCl (Zofran Inj) 4 mg Q6H PRN IV 11/03/16 18:00 12/03/16 17:59 11/03/16 18:38 4 MG Glucose (Glucose 40% Gel) 15-30 GRAMS 15 GRAMS... UD PRN PO 11/03/16 18:30 12/03/16 18:29 Glucose (Glucose Chew Tab) 4-8 Tablets 4 Tabl... UD PRN PO 11/03/16 18:30 12/03/16 18:29 Dextrose (Dextrose 50% 50ML Syringe) 25-50ML OF 50% DW IV FOR... UD PRN IV 11/03/16 18:30 12/03/16 18:29 Glucagon (Glucagon Inj) 1 mg UD PRN SQ 11/03/16 18:30 12/03/16 18:29 Nicotine (Nicoderm Cq 14MG Patch) 1 patch QAM TD 11/04/16 09:00 12/04/16 08:59 11/05/16 07:25 1 PATCH Miscellaneous (Remove Nicoderm Patch) 1 ea QAM N/A 11/04/16 09:00 12/04/16 08:59 11/05/16 07:24 1 EA Clotrimazole (Clotrimazole Vag Crm) 1 appln DAILY PV 11/04/16 13:00 11/10/16 09:01 11/05/16 07:24 1 APPLN Insulin Aspart (novoLOG ASPART) SLIDING SCALE G... ACHS SC 11/04/16 16:30 12/03/16 17:59 11/05/16 08:53 2 UNITS Objective Vital Signs Date Time Temp Pulse Resp B/P (MAP) Pulse Ox O2 Delivery O2 Flow Rate FiO2 11/05/16 08:45 Room Air 11/05/16 07:09 36.9 66 18 149/83 (105) 95 Room Air 11/05/16 00:00 Room Air 11/04/16 23:03 36.7 59 16 153/77 (102) 92 Room Air 11/04/16 20:00 Room Air 11/04/16 16:00 Room Air 11/04/16 14:43 36.8 73 18 151/70 (97) 95 Room Air Physical Exam General Appearance: WD/WN, no apparent distress, + obese Eyes: normal inspection, PERRL, EOMI Neck: supple, no JVD, trachea midline Respiratory/Chest: normal breath sounds, no respiratory distress, no accessory muscle use Cardiovascular: regular rate, rhythm, no gallop, no murmur Abdomen: normal bowel sounds, soft, + tenderness (RUQ) Extremities: normal inspection, no pedal edema, no calf tenderness 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: alert, normal mood/affect, oriented x 3 Skin: normal color, no jaundice, no rash Laboratory Results Last 24 Hours Test 11/04/16 12:53 11/04/16 15:20 11/04/16 16:14 11/04/16 17:25 Total Bilirubin 1.5 mg/dl Direct Bilirubin 0.7 mg/dl Aspartate Amino Transf (AST/SGOT) 714 U/L Alanine Aminotransferase (ALT/SGPT) 560 U/L Alkaline Phosphatase 158 U/L Total Protein 5.9 gm/dl Albumin 2.7 gm/dl Acetaminophen Level < 2 ug/ml Hepatitis B Surface Antibody NEG Hepatitis C Antibody PRELIM POS Bedside Glucose 285 mg/dl Test 11/04/16 20:08 11/05/16 00:00 11/05/16 07:02 11/05/16 07:36 Bedside Glucose 265 mg/dl 211 mg/dl Sodium Level 139 mmol/L Potassium Level 4.2 mmol/L Chloride Level 107 mmol/L Carbon Dioxide Level 25 mmol/L Anion Gap 7.0 mmol/L Blood Urea Nitrogen 5 mg/dl Creatinine 0.44 mg/dl Est Creatinine Clear Calc Drug Dose 134.2 ml/min Estimated GFR () 126.3 Estimated GFR (Non- 108.9 BUN/Creatinine Ratio 11.6 Random Glucose 222 mg/dl Calcium Level 9.1 mg/dl Total Bilirubin 1.2 mg/dl Aspartate Amino Transf (AST/SGOT) 414 U/L Alanine Aminotransferase (ALT/SGPT) 610 U/L Alkaline Phosphatase 189 U/L Total Protein 6.8 gm/dl Albumin 3.0 gm/dl Globulin 3.8 gm/dl Albumin/Globulin Ratio 0.8 Test 11/05/16 09:44 Hepatitis B Surface Antigen NEG Assessment and Plan Patient is a 60 year old female seen for elevated LFTs, most specifically transaminitis, not obstructive pattern as Tbili and AP not markedly up. Suspect viral infections given symptoms of joint aches, fever, chills, malaise on presentation, also CT finding of non specific enteritis. Serologies testing so far pending or negative except HCV Ab positive. RNA quant pending. I discussed this results w pt (risk factor tattoos) Plans - F/U serologies to r/o autoimmune, hereditary liver diseases; viral, acute hepatitis, APAP level (low) - Monitor LFTs - Avoid hepatotoxic meds - Will follow and plan for outpt f/u upon DC to discuss possible HCV treatment if RNA positive.
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
[2016-11-05 15:27] VITALS: BP 144/84; PULSE 55; TEMP 37; O2SAT 97
--- NOTE | 2016-11-05 16:16 | Progress Note ---
Subjective Date of Service: Nov 05, 2016. Subjective Pt evaluation today including: conversation w/ patient, physical exam, lab review, review of inpatient medication list Pain: diffuse joint pain, RUQ pain PO Intake: adequate Voiding: no voiding problems patient feels "miserable" joints ache, RUQ aches she is anxious, worried about potential hepatitis C positive test, her screen was positive appreciate notes from psychiatry and gastroenterology Problem List Medical Problems: (1) Blood glucose elevated Status: Acute (2) Cellulitis of back Status: Acute (3) Failure of outpatient treatment Status: Acute (4) Pancreatitis, acute Status: Acute (5) Right sided abdominal pain Status: Acute Review of Systems Constitutional: + weakness, + fatigue Abdomen: + pain (RUQ) Musculoskeletal: + joint pain (diffuses aches) Psychiatric: + anxiety, + insomnia All Other Systems: Reviewed and Negative Medications Current Inpatient Medications Medications (Trade) Dose Ordered Sig/Mckenzie Route Start Time Stop Time Status Last Admin Dose Admin Albuterol (Ventolin Hfa Inhaler) 2 puffs Q6H PRN INH 11/03/16 18:00 12/03/16 17:59 Gabapentin (Neurontin Cap) 300 mg QID PO 11/03/16 21:00 12/03/16 20:59 11/05/16 12:10 300 MG Insulin Glargine (Lantus Solostar Pen) 15 units QAM SC 11/04/16 09:00 12/04/16 08:59 11/05/16 08:54 15 UNITS Sertraline HCl (Zoloft Tab) 50 mg DAILY PO 11/04/16 09:00 12/04/16 08:59 11/05/16 07:24 50 MG Hydromorphone HCl (Dilaudid Inj) 0.5 mg Q3H PRN IV 11/03/16 18:00 11/17/16 17:59 11/05/16 13:35 0.5 MG Heparin Sodium (Porcine) (Heparin Sq 5000 Unit/0.5ml) 5,000 unit Q8 SQ 11/03/16 22:00 12/03/16 21:59 11/05/16 13:31 5,000 UNIT Acetaminophen (Tylenol Tab) 650 mg Q4H PRN PO 11/03/16 18:00 12/03/16 17:59 Al Hydrox/Mg Hydrox/Simethicone (Maalox Max Susp) 15 ml Q4H PRN PO 11/03/16 18:00 12/03/16 17:59 Magnesium Hydroxide (Milk Of Magnesia Susp) 30 ml Q6H PRN PO 11/03/16 18:00 12/03/16 17:59 11/05/16 07:26 30 ML Polyethylene (Miralax Powder Packet) 17 gm DAILY PRN PO 11/03/16 18:00 12/03/16 17:59 Zolpidem Tartrate (Ambien Tab) 5 mg HSZ PRN PO 11/03/16 18:00 12/03/16 17:59 Ondansetron HCl (Zofran Inj) 4 mg Q6H PRN IV 11/03/16 18:00 12/03/16 17:59 11/03/16 18:38 4 MG Glucose (Glucose 40% Gel) 15-30 GRAMS 15 GRAMS... UD PRN PO 11/03/16 18:30 12/03/16 18:29 Glucose (Glucose Chew Tab) 4-8 Tablets 4 Tabl... UD PRN PO 11/03/16 18:30 12/03/16 18:29 Dextrose (Dextrose 50% 50ML Syringe) 25-50ML OF 50% DW IV FOR... UD PRN IV 11/03/16 18:30 12/03/16 18:29 Glucagon (Glucagon Inj) 1 mg UD PRN SQ 11/03/16 18:30 12/03/16 18:29 Nicotine (Nicoderm Cq 14MG Patch) 1 patch QAM TD 11/04/16 09:00 12/04/16 08:59 11/05/16 07:25 1 PATCH Miscellaneous (Remove Nicoderm Patch) 1 ea QAM N/A 11/04/16 09:00 12/04/16 08:59 11/05/16 07:24 1 EA Clotrimazole (Clotrimazole Vag Crm) 1 appln DAILY PV 11/04/16 13:00 11/10/16 09:01 11/05/16 07:24 1 APPLN Insulin Aspart (novoLOG ASPART) SLIDING SCALE G... ACHS SC 11/04/16 16:30 12/03/16 17:59 11/05/16 12:14 11 UNITS Prazosin HCl (Prazosin) 1 mg HS PO 11/05/16 21:00 12/05/16 20:59 Objective Vital Signs Date Time Temp Pulse Resp B/P (MAP) Pulse Ox O2 Delivery O2 Flow Rate FiO2 11/05/16 15:27 37.0 55 16 144/84 (104) 97 Room Air 11/05/16 08:45 Room Air 11/05/16 07:09 36.9 66 18 149/83 (105) 95 Room Air 11/05/16 00:00 Room Air 11/04/16 23:03 36.7 59 16 153/77 (102) 92 Room Air 11/04/16 20:00 Room Air Physical Exam General Appearance: WD/WN, no apparent distress Eyes: normal inspection, EOMI, sclerae normal ENT: normal ENT inspection, hearing grossly normal, pharynx normal Neck: supple, no adenopathy, no JVD, trachea midline Respiratory/Chest: chest non-tender, lungs clear, normal breath sounds, no respiratory distress, no accessory muscle use Cardiovascular: regular rate, rhythm, no edema, no gallop, no JVD, no murmur Abdomen: normal bowel sounds, soft, no organomegaly, + tenderness (RUQ) Extremities: normal range of motion, normal inspection, no pedal edema, no calf tenderness, pelvis stable, + pertinent finding (knees, shoulders, elbows tender to palpation, no clear swelling) 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iatric: sprigger II-XII nml as tested, no motor/sensory deficits, alert, oriented x 3, + pertinent finding (anxious and tearful at times) Skin: normal color, warm/dry, no rash Laboratory Results Last 24 Hours Test 11/04/16 16:14 11/04/16 17:25 11/04/16 20:08 11/05/16 00:00 Bedside Glucose 285 mg/dl 265 mg/dl Test 11/05/16 07:02 11/05/16 07:36 11/05/16 09:44 11/05/16 11:41 Sodium Level 139 mmol/L Potassium Level 4.2 mmol/L Chloride Level 107 mmol/L Carbon Dioxide Level 25 mmol/L Anion Gap 7.0 mmol/L Blood Urea Nitrogen 5 mg/dl Creatinine 0.44 mg/dl Est Creatinine Clear Calc Drug Dose 134.2 ml/min Estimated GFR () 126.3 Estimated GFR (Non- 108.9 BUN/Creatinine Ratio 11.6 Random Glucose 222 mg/dl Calcium Level 9.1 mg/dl Total Bilirubin 1.2 mg/dl Aspartate Amino Transf (AST/SGOT) 414 U/L Alanine Aminotransferase (ALT/SGPT) 610 U/L Alkaline Phosphatase 189 U/L Total Protein 6.8 gm/dl Albumin 3.0 gm/dl Globulin 3.8 gm/dl Albumin/Globulin Ratio 0.8 Bedside Glucose 211 mg/dl 211 mg/dl Hepatitis B Surface Antigen NEG Hepatitis C Antibody PRELIM POS Assessment and Plan - Transaminitis, possible hepatitis: unclear etiology, initially suspect viral with arthralgia, fever, headache and enteritis patient does not drink, tylenol low, hepatitis B pending, hep C screen positive, Lyme screen negative liver US: fatty liver, mild dilation of CBD consistent with prior loni consult gastroenterology for their recommendations - work up for autoimmune, Bacilio's sent LFT today are stable but no dramatic improvement, actually has pain today which is new repeat labs in the AM - Enteritis: clinically improving, she is eating, no vomiting or diarrhea - Anxiety: psychiatry consulted for recommendations
[2016-11-05] MEDS: PRAZOSIN HCL 1 MG CAP PO SCH (20:35)
[2016-11-05 23:23] VITALS: BP 128/70; PULSE 67; TEMP 36.8; O2SAT 92
[2016-11-06] MEDS: HYDROmorphone INJ 0.5 MG/0.5 ML SYR IV PRN ×2 (04:14→07:38)
[2016-11-06 05:47] LABS: HEMATOCRIT 41.3 % (37-47); MEAN CELL VOLUME 83.8 fL (80-100); MEAN CORPUSCULAR HEMOGLOBIN 27.8 pg (25-34); MEAN CORPUSCULAR HGB CONC 33.2 g/dl (32-36); MEAN PLATELET VOLUME 10.9 fL (7.4-10.4); PLATELET COUNT 187 K/uL (130-400); RED BLOOD COUNT 4.93 M/uL (4.2-5.4); WHITE BLOOD COUNT 5.96 K/uL (4.8-10.8)
[2016-11-06] MEDS: HEPARIN SOD 5000 UNIT/0.5 ML CARP SQ SCH ×3 (06:09→20:51)
[2016-11-06 07:21] VITALS: BP 151/79; PULSE 71; TEMP 37.1; O2SAT 90
[2016-11-06] MEDS: GABAPENTIN 300 MG CAP PO SCH ×4 (07:41→20:52)
[2016-11-06] MEDS: SERTRALINE HCL 50 MG TAB PO SCH (07:42)
[2016-11-06] MEDS: NICOTINE 14 MG/24 HR TDSY TD SCH (07:43)
[2016-11-06] MEDS: CLOTRIMAZOLE VAG CR 45 GM TUBE PV SCH (07:43)
[2016-11-06] MEDS: INSULIN GLARGINE SOLOSTAR 100 UNITS/ML 3 ML PEN SC SCH (08:30)
[2016-11-06] MEDS: INSULIN ASPART 100 UNITS/ML 3 ML PEN SC SCH ×4 (08:30→20:50)
[2016-11-06] MEDS ORDERED: INSULIN GLARGINE SOLOSTAR 100 UNITS/ML 3 ML PEN SC SCH (10:00)
[2016-11-06] MEDS: OXYCODONE HCL IR 5 MG TAB (IMMEDIATE RELEASE) PO PRN ×3 (10:51→23:07)
[2016-11-06 11:16] LABS: BUN/CREATININE RATIO 12.4 (10-20); CALCIUM 9.2 mg/dl (8.5-10.1); CREATININE 0.66 mg/dl (0.60-1.20); POTASSIUM 4.5 mmol/L (3.5-5.1)
[2016-11-06 11:19] LABS: ALB/GLOB RATIO 0.8 (0.9-2)
[2016-11-06 11:26] LABS: BETA-HYDROXYBUTYRATE 1.94 mg/dL (0.2-2.81)
--- NOTE | 2016-11-06 12:25 | Progress Note ---
Subjective Date of Service: Nov 06, 2016. Subjective Pt evaluation today including: conversation w/ patient, physical exam, lab review, conversation w/ [employer] consultant, review of inpatient medication list Pain: less pain today PO Intake: improving Voiding: no voiding problems patient feeling slightly better today, less pain in joints and RUQ, right flank eating better, no vomiting appreciate psychiatry consult, noted the medication recommendations patient slept better last night, she was able to go to sleep and stay asleep less anxiety today discussed potential for d/c to home tomorrow, she agreed labs reviewed, LFT trending down, sugars elevated Problem List Medical Problems: (1) Blood glucose elevated Status: Acute (2) Cellulitis of back Status: Acute (3) Failure of outpatient treatment Status: Acute (4) Pancreatitis, acute Status: Acute (5) Right sided abdominal pain Status: Acute Review of Systems Constitutional: + weakness Abdomen: + pain (RUQ) Musculoskeletal: + joint pain (diffuse arthralgia) All Other Systems: Reviewed and Negative Medications Current Inpatient Medications Medications (Trade) Dose Ordered Sig/Mckenzie Route Start Time Stop Time Status Last Admin Dose Admin Albuterol (Ventolin Hfa Inhaler) 2 puffs Q6H PRN INH 11/03/16 18:00 12/03/16 17:59 Gabapentin (Neurontin Cap) 300 mg QID PO 11/03/16 21:00 12/03/16 20:59 11/06/16 07:41 300 MG Sertraline HCl (Zoloft Tab) 50 mg DAILY PO 11/04/16 09:00 12/04/16 08:59 11/06/16 07:42 50 MG Hydromorphone HCl (Dilaudid Inj) 0.5 mg Q3H PRN IV 11/03/16 18:00 11/17/16 17:59 11/06/16 07:38 0.5 MG Heparin Sodium (Porcine) (Heparin Sq 5000 Unit/0.5ml) 5,000 unit Q8 SQ 11/03/16 22:00 12/03/16 21:59 11/06/16 06:09 5,000 UNIT Acetaminophen (Tylenol Tab) 650 mg Q4H PRN PO 11/03/16 18:00 12/03/16 17:59 Al Hydrox/Mg Hydrox/Simethicone (Maalox Max Susp) 15 ml Q4H PRN PO 11/03/16 18:00 12/03/16 17:59 Magnesium Hydroxide (Milk Of Magnesia Susp) 30 ml Q6H PRN PO 11/03/16 18:00 12/03/16 17:59 11/05/16 07:26 30 ML Polyethylene (Miralax Powder Packet) 17 gm DAILY PRN PO 11/03/16 18:00 12/03/16 17:59 Zolpidem Tartrate (Ambien Tab) 5 mg HSZ PRN PO 11/03/16 18:00 12/03/16 17:59 Ondansetron HCl (Zofran Inj) 4 mg Q6H PRN IV 11/03/16 18:00 12/03/16 17:59 11/03/16 18:38 4 MG Glucose (Glucose 40% Gel) 15-30 GRAMS 15 GRAMS... UD PRN PO 11/03/16 18:30 12/03/16 18:29 Glucose (Glucose Chew Tab) 4-8 Tablets 4 Tabl... UD PRN PO 11/03/16 18:30 12/03/16 18:29 Dextrose (Dextrose 50% 50ML Syringe) 25-50ML OF 50% DW IV FOR... UD PRN IV 11/03/16 18:30 12/03/16 18:29 Glucagon (Glucagon Inj) 1 mg UD PRN SQ 11/03/16 18:30 12/03/16 18:29 Nicotine (Nicoderm Cq 14MG Patch) 1 patch QAM TD 11/04/16 09:00 12/04/16 08:59 11/06/16 07:43 1 PATCH Miscellaneous (Remove Nicoderm Patch) 1 ea QAM N/A 11/04/16 09:00 12/04/16 08:59 11/06/16 07:42 1 EA Clotrimazole (Clotrimazole Vag Crm) 1 appln DAILY PV 11/04/16 13:00 11/10/16 09:01 11/06/16 07:43 1 APPLN Insulin Aspart (novoLOG ASPART) SLIDING SCALE G... ACHS SC 11/04/16 16:30 12/03/16 17:59 11/06/16 08:30 16 UNITS Prazosin HCl (Prazosin) 1 mg HS PO 11/05/16 21:00 12/05/16 20:59 11/05/16 20:35 1 MG Insulin Glargine (Lantus Solostar Pen) 20 units QAM SC 11/07/16 09:00 12/04/16 08:59 Insulin Glargine (Lantus Solostar Pen) 5 units NOW SC 11/06/16 10:00 12/06/16 09:59 Oxycodone HCl (Roxicodone Immediate Rel Tab) 5 mg Q4 PRN PO 11/06/16 10:00 11/20/16 09:59 11/06/16 10:51 5 MG Objective Vital Signs Date Time Temp Pulse Resp B/P (MAP) Pulse Ox O2 Delivery O2 Flow Rate FiO2 11/06/16 08:00 Room Air 11/06/16 07:21 37.1 71 22 151/79 (103) 90 Room Air 11/06/16 00:00 Room Air 11/05/16 23:23 36.8 67 18 128/70 (89) 92 Room Air 11/05/16 16:00 Room Air 11/05/16 15:27 37.0 55 16 144/84 (104) 97 Room Air Physical Exam General Appearance: no apparent distress, + obese Eyes: normal inspection, EOMI, sclerae normal ENT: normal ENT inspection, hearing grossly normal, pharynx normal Respiratory/Chest: chest non-tender, lungs clear, normal breath sounds, no respiratory distress, no accessory muscle use Cardiovascular: regular rate, rhythm, no edema, no gallop, no JVD, no murmur Abdomen: normal bowel sounds, soft, no organomegaly, + tenderness (RUQ) Extremities: normal range of motion, normal inspection, no pedal edema, no calf tenderness, normal capillary refill, pelvis stable, + pertinent finding ( knees, shoulders, wrists tender, no swelling seen) 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, no motor/sensory deficits, alert, oriented x 3, + pertinent finding (less anxious, less tearful today) Skin: normal color, warm/dry, no rash Laboratory Results Last 24 Hours Test 11/05/16 16:24 11/05/16 19:33 11/06/16 05:36 11/06/16 07:25 Bedside Glucose 199 mg/dl 276 mg/dl 258 mg/dl White Blood Count 5.96 K/uL Red Blood Count 4.93 M/uL Hemoglobin 13.7 g/dL Hematocrit 41.3 % Mean Corpuscular Volume 83.8 fL Mean Corpuscular Hemoglobin 27.8 pg Mean Corpuscular Hemoglobin Concent 33.2 g/dl RDW Standard Deviation 46.1 fL RDW Coefficient of Variation 15.1 % Platelet Count 187 K/uL Mean Platelet Volume 10.9 fL Test 11/06/16 09:37 11/06/16 11:17 Sodium Level 138 mmol/L Potassium Level 4.5 mmol/L Chloride Level 104 mmol/L Carbon Dioxide Level 29 mmol/L Anion Gap 5.0 mmol/L Blood Urea Nitrogen 8 mg/dl Creatinine 0.66 mg/dl Est Creatinine Clear Calc Drug Dose 89.5 ml/min Estimated GFR () 110.5 Estimated GFR (Non- 95.3 BUN/Creatinine Ratio 12.4 Random Glucose 315 mg/dl Calcium Level 9.2 mg/dl Total Bilirubin 0.7 mg/dl Aspartate Amino Transf (AST/SGOT) 103 U/L Alanine Aminotransferase (ALT/SGPT) 380 U/L Alkaline Phosphatase 172 U/L Total Protein 6.5 gm/dl Albumin 2.9 gm/dl Globulin 3.6 gm/dl Albumin/Globulin Ratio 0.8 Beta-Hydroxybutyric Acid 1.94 mg/dL Bedside Glucose 239 mg/dl Assessment and Plan - Transaminitis, possible hepatitis: unclear etiology, initially suspect viral illness with arthralgia, fever, headache and enteritis patient does not drink, tylenol low, hepatitis B and A negative, hep C screen positive but RNA pending, Lyme screen negative liver US: fatty liver, mild dilation of CBD consistent with prior loni consult gastroenterology for their recommendations - work up for autoimmune, Bacilio's sent LFT trending down and less RUQ pain repeat labs in the AM, anticipate her going home using Oxy IR for joint pain - Enteritis: clinically improving, she is eating, no vomiting or diarrhea - Anxiety: psychiatry consulted for recommendations increase Zoloft to 150mg once LFT normalize Prazosin added at bedtime for nightmares, helped significantly - DM type II with hyperglycemia: will resume Metformin will give additional Lantus 5 units this AM for 20 units total tighten carb ratio as well as correctional factor, follow sugars anticipate d/c home tomorrow
--- NOTE | 2016-11-06 14:11 | Psychiatric Progress Notes ---
Psychiatric Progress Note Date of Service Nov 06, 2016. Notes ID: Patient reviewed with liaison nurse who is working with patient on ROIs for psychiatric care, ?[facility] [employer]. PRIVACY SPECIALIST recommended titration of Zoloft from 50 to 150 mg, given health status would defer to outpatient and also step up dose to 100 mg first when appropriate. No additional psych recs at this time.
--- NOTE | 2016-11-06 14:21 | Progress Note ---
Progress Note Date of Service Nov 06, 2016. Progress Note Labs noted, charte reviewed. LFT's improving, although cause remains unclear - possible acute HCV? Gstone disease? Drug induced ilver injury? Will recheck tomorrow, ok for d/c if continue to mimprove.
[2016-11-06 15:32] VITALS: BP 136/78; PULSE 61; TEMP 36.6; O2SAT 92
[2016-11-06] MEDS: METFORMIN HCL 500 MG TAB PO SCH (17:32)
[2016-11-06] MEDS: PRAZOSIN HCL 1 MG CAP PO SCH (20:51)
[2016-11-06 22:45] VITALS: BP 126/75; PULSE 54; TEMP 37.1; O2SAT 96
[2016-11-07] MEDS: HEPARIN SOD 5000 UNIT/0.5 ML CARP SQ SCH (05:23)
[2016-11-07] MEDS: OXYCODONE HCL IR 5 MG TAB (IMMEDIATE RELEASE) PO PRN ×2 (05:26→11:21)
[2016-11-07 07:12] LABS: BASO % 0.4 %; BASO ABS # 0.03 K/uL (0-0.2); COMPLETE YES; EOS % 0.5 %; HEMATOCRIT 46.7 % (37-47); IG% 0.1 %; LYMPH % 38.3 %; LYMPH ABS # 2.98 K/uL (1.2-3.4); MEAN CELL VOLUME 82.8 fL (80-100); MEAN CORPUSCULAR HEMOGLOBIN 25.9 pg (25-34); MEAN CORPUSCULAR HGB CONC 31.3 g/dl (32-36); MONO % 4.1 %; NEUT % 56.6 %; PLATELET COUNT 240 K/uL (130-400); RED BLOOD COUNT 5.64 M/uL (4.2-5.4); WHITE BLOOD COUNT 7.79 K/uL (4.8-10.8)
[2016-11-07 07:29] VITALS: BP 138/84; PULSE 82; TEMP 37.1; O2SAT 82
[2016-11-07 07:47] LABS: BUN/CREATININE RATIO 20.3 (10-20); CALCIUM 9.7 mg/dl (8.5-10.1); CREATININE 0.59 mg/dl (0.60-1.20); POTASSIUM 4.3 mmol/L (3.5-5.1)
[2016-11-07] MEDS: GABAPENTIN 300 MG CAP PO SCH (08:14)
[2016-11-07] MEDS: NICOTINE 14 MG/24 HR TDSY TD SCH (08:14)
[2016-11-07] MEDS: SERTRALINE HCL 50 MG TAB PO SCH (08:14)
[2016-11-07] MEDS: METFORMIN HCL 500 MG TAB PO SCH (08:14)
[2016-11-07] MEDS: CLOTRIMAZOLE VAG CR 45 GM TUBE PV SCH (08:15)
[2016-11-07] MEDS: INSULIN ASPART 100 UNITS/ML 3 ML PEN SC SCH ×2 (08:21→11:51)
[2016-11-07] MEDS ORDERED: INSULIN GLARGINE SOLOSTAR 100 UNITS/ML 3 ML PEN SC SCH (09:00)
[2016-11-07] MEDS ORDERED: PRZ1 PO (10:28)
[2016-11-07] MEDS ORDERED: INSDGIPEN SC (10:28)
[2016-11-07] MEDS ORDERED: RXC5 PO (10:28)
[2016-11-07] MEDS ORDERED: SERT50TA PO (10:28)
--- NOTE | 2016-11-07 10:44 | Discharge Instructions ---
Discharge Instructions Date of Service Nov 07, 2016. Admission Reason for Admission: Enteritis, Transaminitis (possible acute hepatitis) Discharge Discharge Diagnosis / Problem: Enteritis, Transaminitis, possible hepatitis, likely acute viral illness Discharge Goals Goal(s): Improve disease control, Diagnostic testing (follow up hepatitis C testing) Activity Recommendations Activity Limitations: resume your previous activity Lifting Limitations: none Exercise/Sports Limitations: as tolerated May Resume Sexual Activity: when tolerated Shower/Bathe: no limitations Driving or Machine Use: no driving after taking oxycodone . Instructions / Follow-Up Instructions / Follow-Up Medications: - METFORMIN: take 500mg twice a day for the next 3 days then resume 1000mg twice a day - LANTUS: increased to 20 units in the morning - PRAZOSIN: started by psychiatry, take at night, should help with nightmares - ZOLOFT: dose increased to 100mg, can titrate up to 150mg in two weeks, per instructions of psychiatry In summary, you presented with what appears to be an acute viral syndrome, unclear as to what virus caused the issue. Presented with diffuse arthralgia ( joint pain), enteritis (bowel inflammation and pain) and RUQ pain with evidence of hepatitis. Symptoms are all resolving and your liver enzymes are coming down to normal. Hepatitis C: screen was positive but confirmatory testing with RNA levels still pending. Please have Dr. Fontenot follow up on these results and if positive, she can refer you to [facility] for treatment. Hepatitis B and A testing was negative. FOLLOW UP - Dr. Fontenot this week for hospital follow up, please repeat liver enzymes later in the week or next week, discuss with Dr. Fontenot Current Hospital Diet Patient's current hospital diet: Diabetes Type 2 Diet, Low Fat Diet, Low Fiber Diet Discharge Diet Recommended Diet: Low Sodium Diet (2gm Na), Diabetes Type 2 Diet Pending Studies Studies pending at discharge: yes List of pending studies: hepatitis C RNA level celiac panel testing for auto-immune hepatitis Laboratory Results Lipid Panel Test 11/03/16 11:15 Range/Units Triglycerides Level 280 H 0-150 mg/dl Medical Emergencies . Who to Call and When: Medical Emergencies: If at any time you feel your situation is an emergency, please call 911 immediately. . Non-Emergent Contact Non-Emergency issues call your: Primary Care Provider Call Non-Emergent contact if: you have a fever, your pain is worsening, you have any medication questions . . "Provider Documentation" section prepared by Vance Adams. . VTE Core Measure Inpt VTE Proph given/why not?: Unfractionated heparin SQ [place] Drug Monitoring Program Search Results: no issues identified
--- NOTE | 2016-11-07 10:53 | Discharge Summary ---
Discharge Summary Date of Service Nov 07, 2016. Discharge Summary Admission Date: Nov 03, 2016 at 17:59 Discharge Date: Nov 07, 2016 Discharge Disposition: Home Principal Diagnosis: Acute viral illness with enteritis, hepatitis, arthralgia Problems/Secondary Diagnoses: DM type II Hepatitis C screen positive Anxiety Insomnia Procedures: none Consultations: Gastroenterology Psychiatry Medication Reconciliation New Medications: Insulin Glargine (Lantus Solostar) 100 Unit/Ml Inj 20 UNITS SC QAM for 30 Days, #1 BOX 3 Refills Oxycodone HCl (Oxycodone HCl) 5 Mg Tab 5 MG PO Q6 PRN for Pain, #30 TAB 0 Refills Prazosin HCl (Prazosin HCl) 1 Mg Cap 1 MG PO HS, #30 CAP 3 Refills Changed Medications: Sertraline (Zoloft) 50 Mg Tab 100 MG PO DAILY, #60 TAB 3 Refills (Changed from: 50 MG; Refills: ) Continued Medications: Albuterol Hfa (Ventolin Hfa) 200 Puffs/72948 Mcg Aers 2-4 PUFFS INH Q6H, #1 INHALER Gabapentin (Gabapentin) 300 Mg Cap 300 MG PO QID, #90 Metformin Hcl (Glucophage) 1,000 Mg Tab 1 TAB PO BID, #60 TAB 5 Refills Discontinued Medications: Insulin Glargine (Lantus Solostar) 100 Unit/Ml Inj 15 UNIT SC QAM, #1 BOX 5 Refills Discharge Exam Patient feeling better today, less pain, eating well, good energy. Nervous about going home due to her anxiety. Did not sleep well last night, again, due to anxiety. Review of Systems: Constitutional: No fever, No chills, No sweats, No weight loss, No weakness , No fatigue, No problem reported Eyes: No worsening of vision, No eye pain, No redness, No discharge, No diplopia, No problem reported ENT: No hearing loss, No unusual epistaxis, No nasal symptoms, No sore throat, No tinnitus, No dental problems, No trouble swallowing, No problem reported Respiratory: No cough, No sputum, No wheezing, No shortness of breath, No dyspnea on exertion, No dyspnea at rest, No hemoptysis, No problem reported Cardiovascular: No chest pain, No orthopnea, No PND, No edema, No claudication, No palpitations, No problem reported Abdomen: + pain (RUQ, mild, improving) Musculoskeletal: + joint pain (diffuse, better today), No muscle pain, No swelling, No calf pain, No problem reported Genitourinary - Female: No dysuria, No urinary frequency, No urinary urgency , No urinary incontinence, No urinary retention, No hematuria Neurologic: + weakness, No memory loss, No paralysis, No numbness/tingling, No vertigo, No balance problems, No problem reported Psychiatric: + anxiety, + insomnia, No depression symptoms, No anhedonism, No substance abuse, No problem reported Endocrine: No fatigue, No excessive thirst, No excessive urination, No problem reported Hematologic / Lymphatic: No abnormal bleeding/bruising, No clotting problems , No swollen lymph nodes, No night sweats, No problem reported Integumentary: No rash, No itch, No new/changing skin lesions, No color change, No bleeding, No problem reported Physical Exam: General Appearance: WD/WN, no apparent distress Eyes: normal inspection, EOMI, sclerae normal ENT: normal ENT inspection, hearing grossly normal, pharynx normal Neck: supple, no adenopathy, no JVD, trachea midline Respiratory/Chest: chest non-tender, lungs clear, normal breath sounds, no respiratory distress, no accessory muscle use Cardiovascular: regular rate, rhythm, no edema, no gallop, no JVD, no murmur , normal peripheral pulses Abdomen / GI: normal bowel sounds, soft, no organomegaly, + tenderness ( mild RUQ tenderness, improved) Extremities: normal inspection, no calf tenderness, normal capillary refill , no pedal edema, normal range of motion, pelvis stable, + pertinent finding ( tender knees, elbows, shoulders and wrists, no obvious swelling) 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, no motor/sensory deficits , alert, normal reflexes, oriented x 3, + pertinent finding (anxious) Skin: normal color, warm/dry, no rash Lymphatic: no adenopathy Hospital Course - Transaminitis, possible hepatitis: unclear etiology, initially suspect viral illness with arthralgia, fever, headache and enteritis patient does not drink, tylenol low, hepatitis B and A negative, hep C screen positive but RNA pending, Lyme screen negative liver US: fatty liver, mild dilation of CBD consistent with prior loni consult gastroenterology for their recommendations - work up for autoimmune, Celiac disease, viral panel and recommend following up on final hepatitis C result LFT trending down and less RUQ pain, bilirubin normal, ALT near normal plan on discharge is to follow up with PCP this week, repeat LFT's in a week need to follow up on Hepatitis C RNA level, if it is confirmed that she has hepatitis C, refer back to [facility] in [place] - Enteritis: clinically resolved, she is eating, no vomiting or diarrhea C diff and stool cultures negative - Anxiety: psychiatry consulted for recommendations increase Zoloft to 150mg as outpatient, she was previously on 50mg will increase to 100mg on the time of discharge and can titrate up to 150mg at discretion of Dr. Fontenot Prazosin added at bedtime for nightmares, helped significantly, continue on discharge - DM type II with hyperglycemia: Lantus increased to 20 units and continue Metformin discussed diet with patient, says that she tries to eat mostly vegetables, fruit, yogurt she enjoys pasta but uses whole wheat and tries to limit how much she eats avoids sweets but her daughter moved into her house and she eats them so now they are more available she may need an additional oral agent, will defer to PCP continue Lantus at 20 units and Metformin 1000mg BID d/c home today Total Time Spent: Greater than 30 minutes This includes examination of the patient, discharge planning, medication reconciliation, and communication with other providers. Discharge Instructions Please refer to the electronic Patient Visit Report (Discharge Instructions) for additional information. Follow-Up Dr. Fontenot this week [facility] if her hepatitis C RNA is positive Additional Copies To Niharika Lucas CRNP; Vanessa Fontenot MD
[2016-11-07 11:12] VITALS: BP 138/84; PULSE 82; TEMP 37.1; O2SAT 92
[2016-11-08 14:35] LABS: HEPATITIS C RNA TMA QUAL Not detected
[2016-11-08 17:34] LABS: CRYPTOSPORIDIUM AG TC 37213 NOT DETECTED (NOT DETECTED); O&P GIARDIA AG NOT DETECTED (NOT DETECTED)
--- NOTE | 2016-11-08 19:34 | Progress Note ---
Progress Note Date of Service Nov 08, 2016. Progress Note time - 1930 Received call from microbiology lab today that 1/4 blood cx bottles turned positive for gram positive rods. The blood cx's were drawn on 11/03/16. Patient admitted for enteritis and hepatitis - thought to be viral. This likely represents contamination. Will follow the culture until completion but suspect no Rx will be needed. Damon Doherty MD
[2016-11-10 00:37] LABS: ALBUMIN 3.1 G/DL (3.8-4.8); ALPHA-1-ANTITRYPSIN TC 67710E 130 MG/DL (83-199); GAMMA GLOBULIN 0.7 G/DL (0.8-1.7); IGA SERUM 350 mg/dL (81-463); PARVOVIRUS IgG INDEX 3.3 (<0.9); PARVOVIRUS IgM INDEX 0.5 (<0.9); TIS TRANS IGA 1 U/mL (<4); TOTAL PROTEIN 5.8 G/DL (6.2-8.3)
== END 2016-11-07 12:15 | disposition home or self-care (01) | DRG 392 ==
LOC: C.EDB 10:39 → C.MS2W 17:59 → ENRESERV 18:05
PROVIDERS: ADMIT Internal Medicine; ATTEND Internal Medicine
DX: A08.4 Viral intestinal infection, unspecified (principal); B19.9 Unspecified viral hepatitis without hepatic coma; F33.9 Major depressive disorder, recurrent, unspecified; M25.50 Pain in unspecified joint; E11.65 Type 2 diabetes mellitus with hyperglycemia; E11.40 Type 2 diabetes mellitus with diabetic neuropathy, unspecified; F41.1 Generalized anxiety disorder; G47.00 Insomnia, unspecified; F17.210 Nicotine dependence, cigarettes, uncomplicated; F43.10 Post-traumatic stress disorder, unspecified; M54.2 Cervicalgia; B37.9 Candidiasis, unspecified; R51 Headache; R74.0 Nonspecific elevation of levels of transaminase and lactic acid dehydrogenase [LDH]; K76.0 Fatty (change of) liver, not elsewhere classified; Z79.899 Other long term (current) drug therapy; Z79.4 Long term (current) use of insulin; Z79.84 Long term (current) use of oral hypoglycemic drugs

== ENCOUNTER 2017-07-14 14:19 | Emergency (ER) | payer OTHER ==
[~2017-07-14] VITALS: Ht 160 cm; Wt 82.7 kg
[~2017-07-14 14:19] MED LIST changes: -ALBU1AER9 INH; +GABA-1219 PO; -GABA1CAP4 PO; -OXY/15 PO; +PRZ1 PO; +RXC5 PO; +VNTHFA/IN INH
[2017-07-14 14:37] VITALS: TEMP 36.7; Ht 160 cm; Wt 82.7 kg
[2017-07-14] MEDS ORDERED: OXYCODONE HCL IR 5 MG TAB (IMMEDIATE RELEASE) PO STA (15:33)
[2017-07-14] MEDS ORDERED: KETOROLAC TROMETHAMINE 60 MG/2 ML VIAL IM STA (15:33)
[2017-07-14] MEDS ORDERED: METF-384 PO (15:45)
--- NOTE | 2017-07-14 16:23 | DIAGNOSTIC IMAGING REPORT ---
CHEST 2 VIEWS ROUTINE CLINICAL HISTORY: wheezing eval for pna dyspnea COMPARISON STUDY: 02/10/2016 FINDINGS: Mild interstitial infiltrative change left base. Mild emphysematous change with mild chronic interstitial prominence. Diaphragms are smooth. IMPRESSION: Mild interstitial infiltrate left base. The above report was generated using voice recognition software. It may contain grammatical, syntax or spelling errors. Electronically signed by: Nick Burgess M.D. 07/14/2017 4:22 PM Dictated Date/Time: 07/14/2017 4:21 PM
--- NOTE | 2017-07-14 16:25 | DIAGNOSTIC IMAGING REPORT ---
C-SPINE ROUTINE 4 OR 5 VIEWS HISTORY: Trauma. Hand. eval for fx COMPARISON: 09/06/2015 FINDINGS: The cervical spine is visualized from C1 through the superior endplate of T1. There is no fracture. No subluxation. Degenerative disc change C4-T1 somewhat progressive from the prior study. Prevertebral soft tissues and the atlantodens interval are intact. IMPRESSION: No fracture or subluxation within the cervical spine. Degenerative change of the mid to lower cervical spine somewhat progressive compared to the prior study. The above report was generated using voice recognition software. It may contain grammatical, syntax or spelling errors. Electronically signed by: Nick Burgess M.D. 07/14/2017 4:23 PM Dictated Date/Time: 07/14/2017 4:22 PM
[2017-07-14] MEDS ORDERED: DOXY100C2 PO (16:52)
[2017-07-14] MEDS ORDERED: OXYC1TAB3 PO (16:52)
[2017-07-14 17:50] VITALS: BP 128/79; PULSE 80; O2SAT 97
--- NOTE | 2017-07-14 18:08 | EMERGENCY ROOM VISIT NOTE ---
History Report prepared by Tien: Reji Davis Under the Supervision of: Dr. Bryan Sharif M.D. First contact with patient: 15:19 Chief Complaint: NECK PAIN Stated Complaint: PAIN IN NECK, ANXIETY History of Present Illness The patient is a 61 year old female who presents to the Emergency Room with complaints of persistent neck pain due to an episodic near fall this afternoon. She currently rates her pain a 7/10 in severity. She states that she almost fell , but caught herself with her hands. She believes that she pulled something in her neck. She has a history of a herniated disc that she was diagnosed with two years ago. She has not had neck surgery to repair the disc although that was recommended to her. She reports neck pain radiating to her shoulders and down both her arms and into her head. She has a history of numbness in her left last two fingers due to carpel tunnel. She has had this numbness for years. She notes falling has worsened the numbness in her left fingers. She denies any fevers or vomiting. She states that she has been having panic attacks and anxiety attacks. She believes the anxiety is the cause of her fall. She states that she tried contacting her therapist, though she cannot get in to see a therapist anytime soon. She reports loss of sleep and nightmares. She states that she has a lot of stressors in her life related to her friend's daughter's and her sister's illness. She also reports having a boyfriend that she states is not treat her well. She is a current smoker. She denies any suicidal or homicidal ideation. Source of History: patient Onset: this afternoon Position: neck Symptom Intensity: 7/10 Timing: other (episodic) Associated Symptoms: + headache, + back pain, + numbness (left fingers), No fevers, No vomiting Note: She notes shoulder pain. Review of Systems See HPI for pertinent positives & negatives. A total of 10 systems reviewed and were otherwise negative. Past Medical & Surgical Medical Problems: (1) Abscess and cellulitis (2) COPD (chronic obstructive pulmonary disease) (3) DM (diabetes mellitus) (4) Enteritis (5) RADHA (generalized anxiety disorder) (6) Leukocytosis (7) PTSD (post-traumatic stress disorder) Family History Patient reports no known family medical history. Social History Smoking Status: Current Every Day Smoker Alcohol Use: none Drug Use: marijuana Marital Status: in relationship Housing Status: lives with significant other Occupation Status: disabled Current/Historical Medications Scheduled Doxycycline Hyclate (Vibramycin), 100 MG PO BID Gabapentin (Gabapentin), 300 MG PO QID Insulin Glargine (Lantus Solostar), 20 UNITS SC QAM Metformin Hcl (Glucophage), 1,000 MG PO BID Scheduled PRN Albuterol Hfa (Ventolin Hfa), 2-4 PUFFS INH Q6H PRN for SOB/Wheezing Oxycodone Ir (Roxicodone Ir), 5 MG PO Q4H PRN for Pain Allergies Coded Allergies: No Known Allergies (Unverified , 07/14/17) Physical Exam Vital Signs Date Time Temp Pulse Resp B/P (MAP) Pulse Ox O2 Delivery O2 Flow Rate FiO2 07/14/17 17:50 80 128/79 97 07/14/17 16:20 84 20 129/91 96 07/14/17 14:37 36.7 78 20 123/80 96 Room Air Physical Exam Constitutional: Vital signs reviewed. Eyes: Pupils are equal round reactive to light. Conjunctiva are noninjected. ENT: Pharynx is clear without erythema or exudate. Mucous membranes are moist. Neck supple without meningeal signs. Respiratory: Scattered wheezing bilaterally. Crackles left base. Breath sounds are equal bilaterally. Cardiovascular: Regular rate and rhythm. No rubs or gallops. GI: Soft, nondistended and nontender. Bowel sounds are present. Musculoskeletal: No peripheral edema. No lower extremity tenderness. Integumentary: No cyanosis. Neurological: The patient is awake and alert. Motor intact throughout all major nerve distribution in the upper extremities. Sensation intact to light touch throughout the upper extremities, with mild dysesthesia to right 4th and 5th digit. Psychiatric: Anxious. Medical Decision & Procedures ER Provider Diagnostic Interpretation: Radiology results as stated below per my review and the radiologist's interpretation: CHEST 2 VIEWS ROUTINE CLINICAL HISTORY: wheezing eval for pna dyspnea COMPARISON STUDY: 02/10/2016 FINDINGS: Mild interstitial infiltrative change left base. Mild emphysematous change with mild chronic interstitial prominence. Diaphragms are smooth. IMPRESSION: Mild interstitial infiltrate left base. The above report was generated using voice recognition software. It may contain grammatical, syntax or spelling errors. Electronically signed by: Nick Burgess M.D. 07/14/2017 4:22 PM Dictated Date/Time: 07/14/2017 4:21 PM C-SPINE ROUTINE 4 OR 5 VIEWS HISTORY: Trauma. Hand. eval for fx COMPARISON: 09/06/2015 FINDINGS: The cervical spine is visualized from C1 through the superior endplate of T1. There is no fracture. No subluxation. Degenerative disc change C4-T1 somewhat progressive from the prior study. Prevertebral soft tissues and the atlantodens interval are intact. IMPRESSION: No fracture or subluxation within the cervical spine. Degenerative change of the mid to lower cervical spine somewhat progressive compared to the prior study. The above report was generated using voice recognition software. It may contain grammatical, syntax or spelling errors. Electronically signed by: Nick Burgess M.D. 07/14/2017 4:23 PM Dictated Date/Time: 07/14/2017 4:22 PM Medications Administered Medications (Trade) Dose Ordered Sig/Mckenzie Route Start Time Stop Time Status Last Admin Dose Admin Ketorolac Tromethamine (Toradol Inj) 10 mg NOW STAT IM 07/14/17 15:33 07/14/17 15:37 DC 07/14/17 16:22 10 MG Oxycodone HCl (Roxicodone Immediate Rel Tab) 5 mg NOW STAT PO 07/14/17 15:33 07/14/17 15:37 DC 07/14/17 16:22 5 MG ED Course 1521: The patient was evaluated in room B8. A complete history and physical exam was performed. 1533: Ordered Oxycodone HCl 5 mg PO and Toradol 10 mg IM 1647: I reassessed the patient at this time. I discussed the results and treatment plan with the patient. I answered all pertaining questions that she had. She expressed understanding and verbalized agreement. The patient will be discharged home. She is being seen by the mental health manager case management for psychiatric referrals. Medical Decision This is a 61-year-old female who presents with neck pain and anxiety. Differential diagnosis includes cervical strain, cervical radiculopathy, dislocation, panic disorder, generalized anxiety disorder. I did perform a limited focused review of portions of the patient's old chart on the electronic medical record. The patient has had no recent pertinent visits to this hospital. I did evaluate the patient as noted above. The patient is presenting with worsening neck pain after nearly falling. She has a history of cervical disc disease and declined surgery despite her doctor's recommendation. She also feels very anxious and is having panic attacks. She denies any chest pain or shortness of breath but on examination she does have some wheezing and rales in the left side. I did treat her with Toradol 10 mg IM. She is also given oxycodone. I did order and personally review the patient's cervical spine and chest x-rays as described above. She has worsening degenerative changes in her cervical spine. She also has a left lower lobe pneumonia. I did discuss the test results with the patient. I did recommend she follow-up closely with her doctor for further evaluation. She stated that she could not take steroids because it makes her agitated and she is already having issues with her anxiety. The mental health manager case management did evaluate her and give her referrals. She was discharged with a prescription for doxycycline for her pneumonia as she has a prior history of MRSA from an abscess. Patient was also given a short prescription for oxycodone for breakthrough pain. She was given precautions regarding this medication. She was discharged in good condition. [place] Drug Monitoring Program Search Results: patient reviewed within database Drug Monitoring Findings: last received oxycodone in October 2016 Medication Reconcilliation Current Medication List: was personally reviewed by me Blood Pressure Screening Patient's blood pressure: Normal blood pressure Impression Primary Impression: Cervical radiculopathy Additional Impressions: LLL pneumonia Anxiety Scribe Attestation The scribe's documentation has been prepared under my direct and personally reviewed by me in its entirety. I confirm that the note above accurately reflects all work, treatment, procedures, and medical decision making performed by me. Departure Information Dispostion Home / Self-Care Prescriptions Doxycycline Hyclate (VIBRAMYCIN) 100 Mg Cap 100 MG PO BID for 10 Days, #20 CAP Prov: Bryan Sharif M.D. 07/14/17 Oxycodone Ir (Roxicodone Ir) 5 Mg Tab 5 MG PO Q4H Y for Pain, #20 TAB Prov: Bryan Sharif M.D. 07/14/17 Referrals Vanessa Fontenot MD (PCP) Forms HOME CARE DOCUMENTATION FORM, IMPORTANT VISIT INFORMATION, WORK / SCHOOL INSTRUCTIONS Patient Instructions ED Cervical Radiculopathy, My [facility], Pneumonia Additional Instructions You have been examined and treated today on an emergency basis only. This is not a substitute for, or an effort to provide, complete comprehensive medical care. It is impossible to recognize and treat all injuries or illnesses in a single emergency department visit. It is therefore important that you follow up closely with your physician. Call as soon as possible for an appointment. Return for worsening symptoms or if you develop fever, vomiting, abdominal pain , loss of control of your bowel or bladder, numbness or weakness to your arms legs, numbness to your private area, difficulty urinating, chest pain, difficulty breathing or any other concerning symptoms. Problem Qualifiers Additional Impressions: LLL pneumonia Pneumonia type: due to unspecified organism Qualified Codes: J18.1 - Lobar pneumonia, unspecified organism
== END 2017-07-14 17:50 | disposition home or self-care (01) ==
LOC: C.EDB 14:21
DX: M54.12 Radiculopathy, cervical region (principal); J18.1 Lobar pneumonia, unspecified organism; F41.9 Anxiety disorder, unspecified; J44.9 Chronic obstructive pulmonary disease, unspecified; E11.9 Type 2 diabetes mellitus without complications; F43.10 Post-traumatic stress disorder, unspecified; F17.210 Nicotine dependence, cigarettes, uncomplicated; Z79.4 Long term (current) use of insulin; Z79.899 Other long term (current) drug therapy

== ENCOUNTER 2018-11-20 09:43 | Inpatient (IN) ==
--- OUTSIDE RECORDS SUMMARY | 2018-11-20 09:46 | External Medical Summary | Continuity of Care Document ---
:1955 Author Name Margarette Camejo Address Unavailable Unavailable , Care Team Providers Name Role Phone Unavailable Unavailable Unavailable Po Camejo Unavailable [email or web address] Camejo, S Unavailable Unavailable Unavailable Unavailable Unavailable Problems Hypertension (401.9) (I10) Need for hepatitis C screening test (V73.89) (Z11.59) HCV antibody positive (795.79) (R76.8) Elevated liver function tests (790.6) (R94.5) Cervical stenosis of spine (723.0) (M48.02) Carpal tunnel syndrome (354.0) (G56.00) Neck pain (723.1) (M54.2) Controlled substance agreement broken (V15.81) (Z91.14) Asthma (493.90) (J45.909) Smokes 1 pack of cigarettes per day (305.1) (F17.210) HTN, goal below 140/90 (401.9) (I10) Diabetes mellitus (250.00) (E11.9) Heartburn (787.1) (R12) Diabetic peripheral neuropathy (250.60) (E11.42) Depression with anxiety (300.4) (F41.8) Lesion of external ear, left (380.9) (H61.92) Pyelonephritis (590.80) (N12) Hip pain, bilateral (719.45) (M25.551) Shoulder wound (880.00) (S41.009A) RADHA (generalized anxiety disorder) (300.02) (F41.1) Nausea (787.02) (R11.0) Fatty liver (571.8) (K76.0) COPD (chronic obstructive pulmonary disease) (496) (J44.9) Arthritis (716.90) (M19.90) Allergies and Adverse Reactions No Known Drug Allergies (Allergy) Medications oxyCODONE-Acetaminophen 10-325 MG Oral T ablet; TAKE 1 TABLET 3 TIMES DAILY as needed for neck pain Nell Fontenot Start: 10-Sep-2015 Quantity: 90 Refills: 0 Nicoderm CQ 21 MG/24HR Transdermal Patch 24 Hour; APPLY 1 PATCH DAILY DIRECTED. Nell Fontenot Start: 06-Feb-2016 Quantity: 1 21 Patch 24 Hour Box Refills: 0 Sertraline HCl - 100 MG Oral Tablet; take 1 tablet by mouth once daily Nell Fontenot Start: 03-Aug-2016 Quantity: 30 Refills: 5 Lisinopril 20 MG Oral Tablet; TAKE 1 TABLET DAILY FOR BLOOD PRESSURE. Nell Fontenot Start: 11-Jul-2015 Quantity: 90 Refills: 1 Gabapentin 300 MG Oral Capsule; take 1 capsule by mout h four times a day Nell Fontenot Start: 07-Feb-2017 Quantity: 360 Refills: 0 Lantus 100 UNIT/ML Subcutaneous Solution; INJECT 15 UN IT Daily Nell Fontenot Start: 11-Jul-2015 Quantity: 3 10 ML Vial Refills: 1 metFORMIN HCl - 1000 MG Oral Tablet; take 1 tablet by mouth twice a day Nell Fontenot Start: 07-Feb-2017 Quantity: 60 Refills: 0 ProAir HFA 108 (90 Base) MCG/ACT Inhalat ion Aerosol Solution; INHALE 1 TO 2 PUFFS EVERY 4 TO 6 HOURS NEEDED for shortness of breath/cough Nell Fontenot Start: 16-Aug-2016 Quantity: 1 8.5 GM Inhaler Refills: 1 Procedures History of Tubal Ligation Status: Comple reddy History of Cholecystectomy Status: Compl eted History of Appendectomy Status: Complete d Immunizations Immunizations not documented Family History Unknown Family Member Family history of depression (V17.0) (Z81.8) Status: Active Comments: Family History Family history of lung disease (V19.8) Status: Active C omments: Family History (Z83.6) Family history of alcohol abuse (V61.41) Status: Active Comments: Family History (Z81.1) Family history of cardiac disorder (V17.49) Status: Active Comments: Family History (Z82.49) Family history of diabetes mellitus (V18.0) Status: Active Comments: Family History (Z83.3) Family history of Anxiety (300.00) (F41.9) Status: Active Comments: Family History Family history of hypertension (V17.49) Status: Active Comments: Family History (Z82.49) Family history of myocardial infarction Status: Active Comments: Family History (V17.3) (Z82.49) Mother Family history of depression (V17.0) (Z81.8) Status: Active Family history of lung disease (V19.8) (Z83.6) Status: Activ e Sister Family history of depression (V17.0) (Z81.8) Status: Active Family history of diabetes mellitus (V18.0) (Z83.3) Status: Active Family history of Anxiety (300.00) (F41.9) Status: Active Family history of hypertension (V17.49) (Z82.49) Status: Act duane Family history of myocardial infarction (V17.3) (Z82.49) Sta tus: Active Father Family history of alcohol abuse (V61.41) (Z81.1) Status: Act duane Family history of cardiac disorder (V17.49) (Z82.49) Status: Active Family history of myocardial infarction (V17.3) (Z82.49) Sta tus: Active Brother Family history of cardiac disorder (V17.49) (Z82.49) Status: Active Family history of diabetes mellitus (V18.0) (Z83.3) Status: Active Family history of myocardial infarction (V17.3) (Z82.49) Sta tus: Active Plan of Treatment Planned Observations Planned Goals not documented Results No Known Results Results not documented Encounters Appointment; Lyla Tan PA-C 15-Feb-2018 11:10 Encounter Diagnosis: Problem not documented
[2018-11-20] MEDS ORDERED: ONDANSETRON INJ 2 MG/ML 2 ML VIAL IV STA (10:04)
[2018-11-20] MEDS ORDERED: MoRPHine SULFATE 4 MG/ML 1 ML CARP\\VIAL IV STA ×2 (10:04→12:14)
[2018-11-20] MEDS ORDERED: SODIUM CHLORIDE 0.9% 500 ML IV SCH (10:15)
[2018-11-20 10:26] LABS: Basophils # (auto) 0.03 K/uL (0-0.2); Basophils % (auto) 0.2 %; Eosinophils # (auto) 0.04 K/uL (0-0.5); Eosinophils % (auto) 0.3 %; Hematocrit (blood only) 48.6 % (37-47); Immature Granulocytes # (auto) 0.04 K/uL (0.00-0.02); Immature Granulocytes % (auto) 0.3 %; Lymphocytes # (auto) 2.94 K/uL (1.2-3.4); Lymphocytes % (auto) 19.8 %; Mean Corpuscular Volume 85.1 fL (80-100); Mean Platelet Volume 11.1 fL (7.4-10.4); Monocytes # (auto) 0.84 K/uL (0.11-0.59); Monocytes % (auto) 5.6 %; Neutrophils # (auto) 10.99 K/uL (1.4-6.5); Neutrophils % (auto) 73.8 %; Platelet Count 284 K/uL (130-400); RDW Coefficient of Variation 12.9 % (11.5-14.5); RDW Standard Deviation 40.2 fL (36.4-46.3); Red Blood Count 5.71 M/uL (4.2-5.4); White Blood Count 14.88 K/uL (4.8-10.8)
--- NOTE | 2018-11-20 10:37 | XRay Report ---
XR chest 1V portable CLINICAL HISTORY: CP dyspnea COMPARISON STUDY: 01/31/2018 FINDINGS: The bones soft tissues and hemidiaphragms are normal. The cardiomediastinal silhouette is n ormal. The lungs are clear. The pulmonary vasculature is normal. IMPRESSION: Negative chest. The above report was generated using voice recognition software. It may contain grammatical, syntax or spelling errors. Electronically signed by: Nick Burgess M.D. 11/20/2018 10:36 AM
[2018-11-20 10:55] LABS: Alanine Aminotransferase 19 U/L (12-78); Albumin Globulin Ratio 0.7 (0.9-2); Albumin Level 3.3 gm/dl (3.4-5.0); Alkaline Phosphatase 117 U/L (45-117); Aspartate Aminotransferase 17 U/L (15-37); BUN Creatinine Ratio 13.7 (10-20); Bilirubin,Total 0.9 mg/dl (0.2-1); Blood Urea Nitrogen 10 mg/dl (7-18); Calcium 9.6 mg/dl (8.5-10.1); Carbon Dioxide 26 mmol/L (21-32); Chloride 99 mmol/L (98-107); Est GFR (African American) 107.4; Est GFR (Non-African American) 92.6; Globulin 4.8 gm/dl (2.5-4.0); Glucose 333 mg/dl (70-99); Potassium 3.9 mmol/L (3.5-5.1); Sodium 135 mmol/L (136-145); Total Protein 8.1 gm/dl (6.4-8.2)
[2018-11-20] MEDS ORDERED: IOVERSOL 100ml IV PRN (11:06)
[2018-11-20 11:13] LABS: Beta-Hydroxybutyrate 9.73 mg/dl (0.2-2.81)
--- NOTE | 2018-11-20 11:38 | CT Scan Report ---
ABDOMEN AND PELVIS CT WITH IV CONTRAST CT DOSE: 873.96 mGy.cm HISTORY: Acute right upper quadrant abdominal pain ruq/ flank pain TECHNIQUE: Multiaxial CT images of the abdomen and pelvis were performed following the use of intrave nous contrast. A dose lowering technique was utilized adhering to the principles of ALARA. COMPARISON STUDY: CT abdomen and pelvis 01/31/2018, MRCP 02/01/2018. FINDINGS: Lung bases are generally clear. No pneumatosis or pneumoperitoneum. Imaged inferior cardiac chambers are unremarkable. Coronary arterial calcifications are noted. Ill-defined decreased attenuation of th e left hepatic lobe adjacent to the falciform ligament suggests focal fatty infiltration. No intrahep atic biliary ductal dilation or hepatic mass lesion identified. Patency of the hepatic and portal vei ns. Cholecystectomy. Mild dilation of the common bile duct redemonstrated, likely on a postsurgical b asis. Spleen and right adrenal gland are unremarkable. Mild thickening of the left adrenal gland. The re is mild interstitial and peripancreatic inflammatory stranding about the uncinate process and panc reatic head. No pancreatic ductal dilation or peripancreatic fluid collection identified. Kidneys, and ureters appear unremarkable. There is moderate circumferential wall thickening of the ur inary bladder with mucosal hyperemia and partial distention. Mild perivesicular stranding. Uterus and adnexa are unremarkable. Mixed plaque formation about the abdominal aorta without aneurysm. Prominen t precaval lymph nodes are seen measuring up to 8 mm. There is mild nonspecific wall thickening about the distal esophagus. No bowel obstruction. Mild wall thickening about the duodenum. Multiple pleura l fragments noted about the cecum. Surgically absent appendix. Soft tissues are unremarkable. Multile yoan facet arthrosis with spondylitic spurring. Bones appear to be intact. IMPRESSION: 1. Findings compatible with mild acute uncomplicated pancreatitis. No acute peripancreatic fluid lane ection. 2. Mild wall thickening of the duodenum, likely reactive. 3. No bowel obstruction or pneumoperitoneum. 4. Cholecystectomy. 5. Urinary bladder wall thickening suspicious for cystitis. Correlate with urinalysis. 6. Additional findings as above. Electronically signed by: Chris Posadas M.D. 11/20/2018 11:37 AM
[2018-11-20] MEDS ORDERED: cefTRIAXone SODIUM 1,000 MG in DEXTROSE 5% 50 ML IV STA (11:41)
[2018-11-20 11:56] LABS: Appearance Urine Clear (Clear); Bacteria Urine Automated 4+ (Negative); Bilirubin Urine Negative (Negative); Blood Urine Negative (Negative); Color Urine Yellow; Epithelial Cell Urine Auto >30 /lpf (0-5); Glucose Urine UA 3+ (Negative); Ketones Urine 1+ (Negative); Leukocyte Esterase Urine 2+ (Negative); Nitrite Urine Negative (Negative); Protein Urine Negative (Negative); RBC Urine Automated 0-4 /hpf (0-4); Specific Gravity Urine > 1.045 (1.000-1.030); Urobilinogen Urine Negative (Negative); WBC Urine Automated >30 /hpf (0-5); pH Urine 7.5 (4.5-7.5)
[2018-11-20] MEDS ORDERED: cefTRIAXone SODIUM 1000MG/50ML D5W IV ONE (12:06)
[2018-11-20] MEDS ORDERED: NovoLIN-R INSULIN PER UNIT CHARGE IV STA (12:14)
[2018-11-20] MEDS ORDERED: SODIUM CHLORIDE 0.9% 1000ML 1,000 ML IV ONE (12:14)
--- NOTE | 2018-11-20 13:17 | History & Physical Report ---
Date of Service November 20, 2018 Assessment & Plan (1) Pancreatitis: Nonalcoholic. History of cholecystectomy. Keep n.p.o. except for ice chips. IV fluids. Parenteral narcotics and antiemetics. Serial lab studies Present on Admission?: Yes (2) UTI (urinary tract infection): Continue intravenous Rocephin daily started in the ED. Await urine cultures results Present on Admission?: Yes (3) DM (diabetes mellitus): Decrease Lantus dosage. Hold metformin. Sliding scale coverage Present on Admission?: Yes (4) COPD (chronic obstructive pulmonary disease): Stable. Continue inhaler therapy Present on Admission?: Yes (5) DVT prophylaxis: Lovenox subcu History of Present Illness Chief Complaint: Several days of epigastric pain, nausea, vomiting, dysuria Primary Care Provider: Carolann Louis MD 62-year-old female who is a nondrinker who has had dysuria for several days then developed epigastric discomfort with nausea and vomiting. She does not drink alcohol. She presented to the ED for evaluation. She has evidence of pancreatitis with elevated lipase and abnormal CT scan. She has had a previous cholecystectomy. She does have evidence of UTI. White count is 14,800. Glucose 333. EKG reveals normal sinus rhythm. She denies hematemesis or coffee-ground emesis. No diarrhea. She has been given intravenous fluids and started on Rocephin in the ED. Allergies Allergy/AdvReac Type Severity Reaction Status Date / Time No Known Allergies Allergy Verified 11/20/18 11:25 Home Medications Home Medications Medication Instructions Recorded Confirmed Type Lantus U-100 Insulin 20 unit SUBCUT QAM 01/31/18 11/20/18 History albuterol sulfate [Ventolin HFA] 2 puff INHALATION Q6H PRN 01/31/18 11/20/18 History gabapentin 300 mg PO QID 01/31/18 11/20/18 History metformin 1,000 mg PO BIDM 01/31/18 11/20/18 History atorvastatin 40 mg PO QAM 11/20/18 11/20/18 History buprenorphine-naloxone [Suboxone] 1.5 film SUBLINGUAL DAILY 11/20/18 11/20/18 History cetirizine 10 mg PO QAM 11/20/18 11/20/18 History lisinopril 5 mg PO QAM 11/20/18 11/20/18 History methylphenidate HCl 5 mg PO BIDM 11/20/18 11/20/18 History Past Med/Surg History Medical History Pancreatitis (Acute) UTI (urinary tract infection) (Acute) DM (diabetes mellitus) (Chronic) COPD (chronic obstructive pulmonary disease) (Chronic) UTI (urinary tract infection) (Acute) Leukocytosis Pyelonephritis (Acute) Pancreatitis, acute (Acute) Enteritis RADHA (generalized anxiety disorder) (Chronic) PTSD (post-traumatic stress disorder) (Chronic) Surgical History No pertinent past surgical history Family History Other No pertinent family history Social History Preferred Language: Palestinian Communication Ability: Effective Visual Impairment: No Limitations Hearing Ability: Normal Beliefs That Will Affect Care: None marital status details: Current Living Situation: Other Feels Safe at Home: Yes Smoking Status: Current every day smoker Tobacco Type: cigarettes Second Hand Exposure: Yes Hx Alcohol Use: No Hx Substance Use: No Review of Systems Review of Systems: Constitutional-no fever or chills ENT-no blurred vision, no double vision, no epistaxis, no sore throat Respiratory-no cough, no wheezing, no shortness of breath Cardiac-no palpitations, no chest pain, no syncope GI-persistent epigastric discomfort. Nausea. Vomiting. No diarrhea. No hematemesis or coffee-ground emesis -several days of dysuria. No hematuria Musculoskeletal-no joint pain, no muscle tenderness Skin-no bruising, no rashes, no pruritus Neuro-no isolated weakness, no paresthesia, no weakness Psych-no depression, no anxiety Physical Exam Physical Exam: General-alert and oriented x3, no fevers, no chills HEENT-head atraumatic and normocephalic, TMs intact bilaterally, pupils equal and reactive to light, extraocular muscles intact Neck-no lymphadenopathy or thyromegaly, trachea midline Chest-clear to auscultation percussion. No rales wheezing or rhonchi Cardiac-regular rate and rhythm, normal S1 and S2, no murmurs Abdomen-mildly distended. Bowel sounds present but hypoactive. Epigastric tenderness. No rebound or guarding Extremities-no cyanosis, clubbing, or edema Neuro-cranial nerves II through XII intact, motor and sensory function within normal limits, strength symmetrical 5/5, no focal deficits Psych-normal affect, normal mood Results & Data Vital Signs (Past 12 Hours) Vital Signs Temp Pulse Pulse Resp BP BP Pulse Ox 11/20/18 11:44 77 16 171/100 H 97 11/20/18 10:08 95 11/20/18 09:54 36.5 C 98 H 20 135/76 94 Laboratory Results 11/20/18 10:15 11/20/18 10:15 PG Care Time/CCT Total # of Minutes Spent Total Time Spent with Patient: Total time spent is greater than 50% in coordination of care (as documented) at patient's floor/unit and/or counseling patient: (1) Pancreatitis Acute pancreatitis complication: unspecified Chronicity: acute Pancreatitis type: unspecified pancreatitis type Qualified Code(s): K85.90 - Acute pancreatitis without necrosis or infection, unspecified (2) UTI (urinary tract infection) Urinary tract infection type: site unspecified
[2018-11-20] MEDS ORDERED: MoRPHine SULFATE 2 MG/ML CARP ONE (15:31)
--- NOTE | 2018-11-20 16:46 | Emergency Department Note ---
Entered by Elissa Peterson acting as a scribe for History of Present Illness General Chief complaint: Flank Pain Stated complaint: PAIN IN RIGHT SIDE Source: patient Mode of arrival: ambulatory Limitations: no limitations History of Present Illness Onset (ago): day(s) 3 Location: right (flank) Radiation: back (right) and abdomen (right) Pain Consistency: + constant Maximum Pain Intensity: 8 Exacerbated By: + movement (twisting, turning, bending, lying on right side) The patient is a 62 year old female with a history of URI, transaminitis, pancreatitis, choledocholithiasis, diabetes, COPD, sciatica, UTI, pyelonephritis, RADHA, PTSD, and major depressive disorder who presents to the ED with complaints of constant right-sided flank pain that onset 3 days ago. The patient presents with her . She complains of right flank pain that radiates into her right back and right abdomen. The patient reports that this pain is exacerbated with twisting, turning, bending, and lying on her right side. She complains of nausea and vomiting twice yesterday. The patient complains of shortness of breath since yesterday with the flank pain. She states that she feels full and is unable to pass a bowel movement. The patient mentions that she completed an enema last night but it did not help to alleviate her symptoms. She notes that she was diagnosed with a UTI today by her PCP over the phone on the way to the ED. The patient complains of pain and burning with urination for 1 week. The patient denies fevers above 104. Home Medications Home Medications Medication Instructions Recorded Confirmed Type Lantus U-100 Insulin 20 unit SUBCUT QAM 01/31/18 11/20/18 History albuterol sulfate [Ventolin HFA] 2 puff INHALATION Q6H PRN 01/31/18 11/20/18 History gabapentin 300 mg PO QID 01/31/18 11/20/18 History metformin 1,000 mg PO BIDM 01/31/18 11/20/18 History atorvastatin 40 mg PO QAM 11/20/18 11/20/18 History buprenorphine-naloxone [Suboxone] 1.5 film SUBLINGUAL DAILY 11/20/18 11/20/18 History cetirizine 10 mg PO QAM 11/20/18 11/20/18 History lisinopril 5 mg PO QAM 11/20/18 11/20/18 History methylphenidate HCl 5 mg PO BIDM 11/20/18 11/20/18 History Allergies Allergy/AdvReac Type Severity Reaction Status Date / Time No Known Allergies Allergy Verified 11/20/18 11:25 Past Med/Surg History Medical History Pancreatitis (Acute) UTI (urinary tract infection) (Acute) DM (diabetes mellitus) (Chronic) COPD (chronic obstructive pulmonary disease) (Chronic) UTI (urinary tract infection) (Acute) Leukocytosis Pyelonephritis (Acute) Pancreatitis, acute (Acute) Enteritis RADHA (generalized anxiety disorder) (Chronic) PTSD (post-traumatic stress disorder) (Chronic) Surgical History No pertinent past surgical history Family History Other No pertinent family history Social History Preferred Language: [place] Communication Ability: Effective Visual Impairment: No Limitations Hearing Ability: Normal Camp Coordinator Required: No Beliefs That Will Affect Care: None marital status details: Current Living Situation: Significant Other Other Information That Helps Us Care for You: No Feels Safe at Home: Yes Safety Concerns: Feels Safe At This Time Smoking Status: Current every day smoker Tobacco Type: cigarettes Cigarettes Per Day: 20 Do You Dip or Chew Tobacco: No Second Hand Exposure: Yes Tobacco Cessation Education Requested by Patient: No Hx Alcohol Use: No Hx Substance Use: No Review of Systems See HPI for pertinent positives & negatives. and A total of 10 systems reviewed and were otherwise negative Physical Exam Vital Signs Vital Signs - 24 hr 11/20/18 09:54 11/20/18 10:08 11/20/18 11:44 Temperature 36.5 C Temperature Source Oral Sepsis Recent Fever Within 48 Hours No Sepsis Action Taken by Nursing No Action Required Pulse Rate 98 H Pulse Rate [Apical] 77 Pulse Rhythm [Apical] Pulse Strength [Apical] Respiratory Rate 20 16 Respiratory Effort / Characteristics Respiratory Depth Respiratory Pattern Blood Pressure 135/76 Blood Pressure [Left Arm] 171/100 H Blood Pressure Mean 95 Blood Pressure Mean [Left Arm] 123 Blood Pressure Position [Left Arm] Pulse Oximetry 94 95 97 Oxygen Delivery Method Room Air Room Air Room Air 11/20/18 13:00 11/20/18 15:00 11/20/18 15:22 Temperature Temperature Source Sepsis Recent Fever Within 48 Hours Sepsis Action Taken by Nursing Pulse Rate Pulse Rate [Apical] 78 76 Pulse Rhythm [Apical] Regular Pulse Strength [Apical] Normal Respiratory Rate 16 18 Respiratory Effort / Characteristics Non-Labored Spontaneous Non-Labored Spontaneous Respiratory Depth Normal Normal Respiratory Pattern Regular Regular Blood Pressure Blood Pressure [Left Arm] 171/100 H 153/90 H Blood Pressure Mean Blood Pressure Mean [Left Arm] 123 111 Blood Pressure Position [Left Arm] Lying Pulse Oximetry 97 93 Oxygen Delivery Method Room Air Room Air Room Air GENERAL: Sitting up in bed, disheveled, chronically ill appearing, smells of s [place]. EYE EXAM: Normal conjunctiva. OROPHARYNX: no exudate, no erythema, lips, buccal mucosa, and tongue normal and mucous membranes are moist NECK: supple, no nuchal rigidity, no adenopathy, non-tender LUNGS: Faint wheezes at bilateral bases. HEART: no murmurs, S1 normal and S2 normal ABDOMEN: abdomen soft, tender to palpation of right upper quadrant/right flank/right back same as stated complaint, normo-active bowel sounds, no masses, no rebound or guarding. BACK: Back is symmetrical on inspection and there is no deformity, no midline tenderness, no CVA tenderness. SKIN: no rashes and no bruising UPPER EXTREMITIES: upper extremities are grossly normal. LOWER EXTREMITIES: No pitting edema. Claves are equal bilaterally. NEURO EXAM: Normal sensorium, cranial nerves II-XII grossly intact, normal speech, no gross weakness of arms, no gross weakness of legs. Course 0959: Past medical records reviewed. The patient was evaluated in room B06. A complete history and physical examination was performed. 1230: Paged hospitalist services. 1259: I reviewed the patient's case with Dr. Yunior Mcdowell - [facility]. He will evaluate the patient for further management. Consultations Consultation #1: 1259: I reviewed the patient's case with Dr. Yunior Mcdowell - [facility]. He will evaluate the patient for further management. Time: 12:59 Administered Medications Ioversol (Optiray 320 100ml) 94 ml IV ONCE PRN PRN Reason: Interaction Checking Stop: 11/24/18 11:05 Last Admin: 11/20/18 11:06 Dose: 94 ml Documented by: [id number] Discontinued Medications Ceftriaxone Sodium (Rocephin) Confirm Administered Dose 1,000 mg IV .Shellcatch-MED ONE Stop: 11/20/18 12:07 Last Admin: 11/20/18 12:12 Dose: 1,000 mg Documented by: [id number] Sodium Chloride (Nss) 500 mls @ 999 mls/hr IV .Q31M YAHIR Stop: 11/20/18 10:45 Last Infusion: 11/20/18 11:17 Dose: 0 mls/hr Documented by: [id number] Admin: 11/20/18 10:46 Dose: 999 mls/hr Documented by: [id number] Ceftriaxone Sodium 1,000 mg/ (Dextrose) 60 mls @ 100 mls/hr IV NOW STA; Protocol Stop: 11/20/18 12:16 Last Admin: 11/20/18 12:13 Dose: Not Given Documented by: [id number] Sodium Chloride (Nss 1000ml) 1,000 mls @ 999 mls/hr IV .Q1H1M ONE Stop: 11/20/18 13:14 Last Infusion: 11/20/18 13:43 Dose: 0 mls/hr Documented by: [id number] Admin: 11/20/18 12:37 Dose: 999 mls/hr Documented by: [id number] Insulin Human Regular (Novolin R U-100 Per Unit) 4 units IV NOW STA Stop: 11/20/18 12:15 Last Admin: 11/20/18 12:38 Dose: 4 units Documented by: [id number] Cosigned by: [id number] Morphine Sulfate (Morphine Sulfate) 4 mg IV NOW STA Stop: 11/20/18 10:05 Last Admin: 11/20/18 10:44 Dose: 4 mg Documented by: [id number] Morphine Sulfate (Morphine Sulfate) 4 mg IV NOW STA Stop: 11/20/18 12:15 Last Admin: 11/20/18 12:38 Dose: 4 mg Documented by: [id number] Morphine Sulfate (Morphine Sulfate) Confirm Administered Dose 2 mg .ROUTE .STK- MED ONE Stop: 11/20/18 15:32 Last Admin: 11/20/18 15:40 Dose: 2 mg Documented by: [id number] Ondansetron HCl (Zofran) 4 mg IV NOW STA Stop: 11/20/18 10:05 Last Admin: 11/20/18 10:44 Dose: 4 mg Documented by: [id number] Medical Decision Making Differential Diagnosis Differential diagnoses: Appendicitis, diverticulitis, PUD, biliary pathology, UTI, pancreatitis, obstruction, mesenteric ischemia, aortic pathology, infections, inflammatory bowel disease, renal colic, as well as others were entertained. Medical Records Attestation: I reviewed the patient's medical records. Home Medications Current Medication List: was personally reviewed by me Laboratory Data Attestation: I reviewed the patient's lab results. Result diagrams: 11/20/18 10:15 11/20/18 10:15 Lab Results 11/20/18 11/20/18 11/20/18 Range/Units 10:15 10:15 11:45 WBC 14.88 H (4.8-10.8) K/uL RBC 5.71 H (4.2-5.4) M/uL Hgb 17.0 H (12.0-16.0) g/dL Hct 48.6 H (37-47) % MCV 85.1 (80-100) fL MCH 29.8 (25-34) pg MCHC 35.0 (32-36) g/dL RDW Std Deviation 40.2 (36.4-46.3) fL RDW Coeff of [place] 12.9 (11.5-14.5) % Plt Count 284 (130-400) K/uL MPV 11.1 H (7.4-10.4) fL Immature Gran % (Auto) 0.3 % Neut % (Auto) 73.8 % Lymph % (Auto) 19.8 % [place] % (Auto) 5.6 % Eos % (Auto) 0.3 % Baso % (Auto) 0.2 % Immature Gran # (Auto) 0.04 H (0.00-0.02) K/uL Neut # (Auto) 10.99 H (1.4-6.5) K/uL Lymph # (Auto) 2.94 (1.2-3.4) K/uL [place] # (Auto) 0.84 H (0.11-0.59) K/uL Eos # (Auto) 0.04 (0-0.5) K/uL Baso # (Auto) 0.03 (0-0.2) K/uL Sodium 135 L (136-145) mmol/L Potassium 3.9 (3.5-5.1) mmol/L Chloride 99 (98-107) mmol/L Carbon Dioxide 26 (21-32) mmol/L Anion Gap 10.0 (3-11) BUN 10 (7-18) mg/dl Creatinine 0.69 (0.6-1.2) mg/dl Est Cr Clr Drug Dosing Not Reportable Est GFR ( Amer) 107.4 Est GFR (Non-Af Amer) 92.6 BUN/Creatinine Ratio 13.7 (10-20) Glucose 333 H* (70-99) mg/dl POC Glucose (70-99) Calcium 9.6 (8.5-10.1) mg/dl Total Bilirubin 0.9 (0.2-1) mg/dl AST 17 (15-37) U/L ALT 19 (12-78) U/L Alkaline Phosphatase 117 (45-117) U/L Total Protein 8.1 (6.4-8.2) gm/dl Albumin 3.3 L (3.4-5.0) gm/dl Globulin 4.8 H (2.5-4.0) gm/dl Albumin/Globulin Ratio 0.7 L (0.9-2) Lipase 993 H (73-393) U/L Beta-Hydroxybutyric Acd 9.73 H (0.2-2.81) mg/dl Urine Color Yellow Urine Appearance Clear (Clear) Urine pH 7.5 (4.5-7.5) Ur Specific [place] > 1.045 H (1.000-1.030) Urine Protein Negative (Negative) Urine Glucose (UA) 3+ H (Negative) Urine Ketones 1+ H (Negative) Urine Blood Negative (Negative) Urine Nitrite Negative (Negative) Urine Bilirubin Negative (Negative) Urine Urobilinogen Negative (Negative) Ur Leukocyte Esterase 2+ H (Negative) Urine WBC (Auto) >30 H (0-5) /hpf Urine RBC (Auto) 0-4 (0-4) /hpf U Hyaline Cast (Auto) 1-5 (0-5) /lpf U Epithel Cells (Auto) >30 H (0-5) /lpf Urine Bacteria (Auto) 4+ H (Negative) Urine Yeast Budding A (None Prsent) 11/20/18 Range/Units 13:26 WBC (4.8-10.8) K/uL RBC (4.2-5.4) M/uL Hgb (12.0-16.0) g/dL Hct (37-47) % MCV (80-100) fL MCH (25-34) pg MCHC (32-36) g/dL RDW Std Deviation (36.4-46.3) fL RDW Coeff of [place] (11.5-14.5) % Plt Count (130-400) K/uL MPV (7.4-10.4) fL Immature Gran % (Auto) % Neut % (Auto) % Lymph % (Auto) % [place] % (Auto) % Eos % (Auto) % Baso % (Auto) % Immature Gran # (Auto) (0.00-0.02) K/uL Neut # (Auto) (1.4-6.5) K/uL Lymph # (Auto) (1.2-3.4) K/uL [place] # (Auto) (0.11-0.59) K/uL Eos # (Auto) (0-0.5) K/uL Baso # (Auto) (0-0.2) K/uL Sodium (136-145) mmol/L Potassium (3.5-5.1) mmol/L Chloride (98-107) mmol/L Carbon Dioxide (21-32) mmol/L Anion Gap (3-11) BUN (7-18) mg/dl Creatinine (0.6-1.2) mg/dl Est Cr Clr Drug Dosing Est GFR ( Amer) Est GFR (Non-Af Amer) BUN/Creatinine Ratio (10-20) Glucose (70-99) mg/dl POC Glucose 244 H (70-99) Calcium (8.5-10.1) mg/dl Total Bilirubin (0.2-1) mg/dl AST (15-37) U/L ALT (12-78) U/L Alkaline Phosphatase (45-117) U/L Total Protein (6.4-8.2) gm/dl Albumin (3.4-5.0) gm/dl Globulin (2.5-4.0) gm/dl Albumin/Globulin Ratio (0.9-2) Lipase (73-393) U/L Beta-Hydroxybutyric Acd (0.2-2.81) mg/dl Urine Color Urine Appearance (Clear) Urine pH (4.5-7.5) Ur Specific [place] (1.000-1.030) Urine Protein (Negative) Urine Glucose (UA) (Negative) Urine Ketones (Negative) Urine Blood (Negative) Urine Nitrite (Negative) Urine Bilirubin (Negative) Urine Urobilinogen (Negative) Ur Leukocyte Esterase (Negative) Urine WBC (Auto) (0-5) /hpf Urine RBC (Auto) (0-4) /hpf U Hyaline Cast (Auto) (0-5) /lpf U Epithel Cells (Auto) (0-5) /lpf Urine Bacteria (Auto) (Negative) Urine Yeast (None Prsent) Imaging Data Radiologist's Impression: Radiology results as stated below per my review and t he radiologist's interpretation: ABDOMEN AND PELVIS CT WITH IV CONTRAST CT DOSE: 873.96 mGy.cm HISTORY: Acute right upper quadrant abdominal pain ruq/ flank pain TECHNIQUE: Multiaxial CT images of the abdomen and pelvis were performed following the use of intravenous contrast. A dose lowering technique was utilized adhering to the principles of ALARA. COMPARISON STUDY: CT abdomen and pelvis 01/31/2018, MRCP 02/01/2018. FINDINGS: Lung bases are generally clear. No pneumatosis or pneumoperitoneum. Imaged inferior cardiac chambers are unremarkable. Coronary arterial calcifications are noted. Ill-defined decreased attenuation of the left hepatic lobe adjacent to the falciform ligament suggests focal fatty infiltration. No intrahepatic biliary ductal dilation or hepatic mass lesion identified. Patency of the hepatic and portal veins. Cholecystectomy. Mild dilation of the common bile duct redemonstrated, likely on a postsurgical basis. Spleen and right adrenal gland are unremarkable. Mild thickening of the left adrenal gland. There is mild i nterstitial and peripancreatic inflammatory stranding about the uncinate process and pancreatic head. No pancreatic ductal dilation or peripancreatic fluid collection identified. Kidneys, and ureters appear unremarkable. There is moderate circumferential wall thickening of the urinary bladder with mucosal hyperemia and partial distention. Mild perivesicular stranding. Uterus and adnexa are unremarkable. Mixed plaque formation about the abdominal aorta without aneurysm. Prominent precaval lymph nodes are seen measuring up to 8 mm. There is mild nonspecific wall thickening about the distal esophagus. No bowel obstruction. Mild wall thickening about the duodenum. Multiple pleural fragments noted about the cecum. Surgically absent appendix. Soft tissues are unremarkable. Multilevel facet arthrosis with spondylitic spurring. Bones appear to be intact. IMPRESSION: 1. Findings compatible with mild acute uncomplicated pancreatitis. No acute peripancreatic fluid collection. 2. Mild wall thickening of the duodenum, likely reactive. 3. No bowel obstruction or pneumoperitoneum. 4. Cholecystectomy. 5. Urinary bladder wall thickening suspicious for cystitis. Correlate with urinalysis. 6. Additional findings as above. Electronically signed by: Chris Posadas M.D. 11/20/2018 11:37 AM Dictated: 11/20/18 1123 Transcribed: 11/20/18 1125 XR chest 1V portable CLINICAL HISTORY: CP dyspnea COMPARISON STUDY: 01/31/2018 FINDINGS: The bones soft tissues and hemidiaphragms are normal. The cardiomediastinal silhouette is normal. The lungs are clear. The pulmonary vasculature is normal. IMPRESSION: Negative chest. The above report was generated using voice recognition software. It may contain grammatical, syntax or spelling errors. Electronically signed by: Nick Burgess M.D. 11/20/2018 10:36 AM Dictated: 11/20/18 1035 Transcribed: 11/20/18 1035 ECG Data Attestation: I personally reviewed and interpreted this ECG as follows: Indication: other (flank pain) Rate (beats per minute): 96 Rhythm: sinus rhythm Findings: + other (poor baseline, normal axis, nonspecific ST changes in inferior leads) Blood Pressure Blood Pressure Findings: Elevated blood pressure Blood Pressure Disposition: further management by hospitalist LENY Narrative Patient is a 62-year-old female who presents the ER for 3 days worth of right flank pain associated with urinary symptoms. IV was established blood work was obtained and showed a leukocytosis of 14.8 thousand. Hemoglobin was elevated at 17 which I favor is likely secondary to dehydration. BMP with mild hyponatremia. Glucose elevated at 333. LFTs and bilirubin were normal. Lipase was elevated at just under thousand. Patient was given IV insulin. She is given IV fluids multiple dose of IV narcotics. UA does suggest a UTI although it is contaminated. Patient was given a gram of IV Rocephin. CT confirms pancreatitis and questions of cystitis. Patient was updated bedside. With her pancreatitis not being able to eat or drink discussed with the hospitalist and updated patient at bedside. Patient was admitted for further observation/evaluation for pancreatitis and UTI. Impression & Plan Pancreatitis, UTI (urinary tract infection), Hyperglycemia, Encounter for smoking cessation counseling Discharge Plan Visit Data Chief Complaint: Flank Pain Stated Complaint: PAIN IN RIGHT SIDE ED Provider: Garret Wilson Discharge Problem: Pancreatitis, UTI (urinary tract infection), Hyperglycemia, Encounter for smoking cessation counseling Patient Disposition: Being Evaluated by Hospitalist Forms Stand Alone Forms: My [facility] Prescriptions Prescriptions: No Action Lantus U-100 Insulin 100 unit/mL Solution 20 unit SUBCUT QAM RF: 0 metformin 1,000 mg Tablet 1,000 mg PO BIDM RF: 0 gabapentin 300 mg Capsule 300 mg PO QID RF: 0 albuterol sulfate [Ventolin HFA] 90 mcg/actuation Hfa Aerosol Inhaler 2 puff INHALATION Q6H PRN (Reason: Shortness Of Breath Or Wheezing) RF: 0 atorvastatin 40 mg tablet 40 mg PO QAM RF: 0 cetirizine 10 mg tablet 10 mg PO QAM RF: 0 methylphenidate HCl 5 mg tablet 5 mg PO BIDM RF: 0 lisinopril 5 mg tablet 5 mg PO QAM RF: 0 buprenorphine-naloxone [Suboxone] 8-2 mg film 1.5 film sublingual DAILY RF: 0 Referrals Referrals: Carolann Louis MD [Primary Care Provider] - The scribe's documentation has been prepared under my direction and personally reviewed by me in its entirety. I confirm that the note above accurately reflects all work, treatment, procedures, and medical decision making performed by me.
[2018-11-20] MEDS ORDERED: ALBUTEROL HFA 8 GM INHALER INH PRN (20:17)
[2018-11-20] MEDS ORDERED: GLUCOSE 40% GEL 15 GM TUBE PO PRN (21:00)
[2018-11-20] MEDS ORDERED: INSULIN ASPART 100 UNITS/ML 3 ML PEN SC SCH (21:00)
[2018-11-20] MEDS ORDERED: GLUCAGON FOR INJ 1 MG VIAL IM PRN (21:00)
[2018-11-20] MEDS ORDERED: GLUCOSE 10 TABS/TUBE PO PRN (21:00)
[2018-11-20] MEDS ORDERED: CARBOHYDRATES FOR HYPOGLYCEMIA PO PRN (21:00)
[2018-11-20] MEDS ORDERED: DEXTROSE 50% 50 ML SYRINGE IV PRN (21:00)
[2018-11-20] MEDS: SODIUM CHLORIDE 0.9% 1000ML 1,000 ML IV SCH (21:24)
[2018-11-20] MEDS: MoRPHine SULFATE 2 MG/ML CARP IV PRN (21:25)
[2018-11-20] MEDS: FAMOTIDINE 20 MG in SYRINGE 3 ML IV SCH (21:25)
[2018-11-20] MEDS: GABAPENTIN 300 MG CAP PO SCH (21:30)
[2018-11-20 21:59] LABS: Partial Thromboplastin Time 27.3 Seconds (21.0-31.0); Prothrombin Time 10.3 Seconds (9.0-12.0)
[2018-11-20] MEDS: ENOXAPARIN INJ 40 MG/0.4 ML SYR SQ SCH (22:35)
[2018-11-21] MEDS ORDERED: METOCLOPRAMIDE HCL INJ 5 MG/ML 2 ML VIAL IV STA (01:13)
[2018-11-21] MEDS: MoRPHine SULFATE 2 MG/ML CARP IV PRN ×8 (01:25→22:59)
[2018-11-21] MEDS: SODIUM CHLORIDE 0.9% 1000ML 1,000 ML IV SCH ×3 (04:05→17:43)
[2018-11-21] MEDS ORDERED: INSULIN ASPART 100 UNITS/ML 3 ML PEN SC SCH (06:45)
[2018-11-21] MEDS ORDERED: Nursing to Pharmacy Communication ONE (06:45)
[2018-11-21 06:58] LABS: Basophils # (auto) 0.02 K/uL (0-0.2); Basophils % (auto) 0.2 %; Eosinophils # (auto) 0.05 K/uL (0-0.5); Eosinophils % (auto) 0.5 %; Hematocrit (blood only) 43.1 % (37-47); Hemoglobin 14.4 g/dL (12.0-16.0); Immature Granulocytes # (auto) 0.02 K/uL (0.00-0.02); Immature Granulocytes % (auto) 0.2 %; Lymphocytes # (auto) 3.23 K/uL (1.2-3.4); Lymphocytes % (auto) 31.2 %; Mean Corpuscular Hgb Conc 33.4 g/dL (32-36); Mean Corpuscular Volume 84.3 fL (80-100); Monocytes # (auto) 0.53 K/uL (0.11-0.59); Monocytes % (auto) 5.1 %; Neutrophils % (auto) 62.8 %; Platelet Count 234 K/uL (130-400); RDW Coefficient of Variation 12.8 % (11.5-14.5); RDW Standard Deviation 39.1 fL (36.4-46.3); Red Blood Count 5.11 M/uL (4.2-5.4); White Blood Count 10.35 K/uL (4.8-10.8)
[2018-11-21 07:33] LABS: Albumin Level 2.6 gm/dl (3.4-5.0); BUN Creatinine Ratio 15.7 (10-20); Calcium 8.3 mg/dl (8.5-10.1); Creatinine Clr Calc Pharmacy 138.9 ml/min; Est GFR (African American) 126.4; Est GFR (Non-African American) 109.1; Potassium 3.5 mmol/L (3.5-5.1)
[2018-11-21 07:46] LABS: Albumin Globulin Ratio 0.7 (0.9-2); Bilirubin,Total 0.8 mg/dl (0.2-1); Total Protein 6.6 gm/dl (6.4-8.2)
[2018-11-21] MEDS: ONDANSETRON INJ 2 MG/ML 2 ML VIAL IV PRN ×3 (08:21→20:18)
[2018-11-21] MEDS: METHYLPHENIDATE HCL 5 MG TABLET PO SCH ×2 (08:21→17:21)
[2018-11-21] MEDS: GABAPENTIN 300 MG CAP PO SCH ×4 (08:21→20:24)
[2018-11-21] MEDS: FAMOTIDINE 20 MG in SYRINGE 3 ML IV SCH ×2 (08:27→20:22)
[2018-11-21] MEDS: INSULIN ASPART 100 UNITS/ML 3 ML PEN SC SCH ×4 (08:37→23:58)
[2018-11-21] MEDS ORDERED: BUPRENORPHINE/NALOXONE 8/2 MG TAB SL SCH (09:00)
[2018-11-21] MEDS ORDERED: LISINOPRIL 5 MG TAB PO SCH (09:00)
[2018-11-21] MEDS ORDERED: INSULIN GLARGINE SOLOSTAR 100 UNITS/ML 3 ML PEN SQ SCH (09:00)
[2018-11-21] MEDS ORDERED: POLYETHYLENE (MIRALAX) 17 GM PACK PO PRN (11:06)
[2018-11-21] MEDS ORDERED: DOCUSATE SODIUM/SENNA 50/8.6MG TAB PO SCH (11:15)
[2018-11-21] MEDS: cefTRIAXone SODIUM 2,000 MG in DEXTROSE 5% 50 ML IV SCH (12:06)
[2018-11-21] MEDS ORDERED: MoRPHine SULFATE 2 MG/ML CARP IV ONE (12:35)
--- NOTE | 2018-11-21 13:24 | XRay Report ---
XR KUB/Abdomen 1 view CLINICAL HISTORY: Acute abd pain COMPARISON STUDY: 02/10/2016, CT scan dated 11/20/2018 FINDINGS: There is mild gaseous prominence of both large and small bowel loops. There is a slight [place] of bowel gas within the left colon. The findings are unlikely to be secondary to an obstruction as none was visualized on a CT scan performed the day prior. There are surgical clips within the righ t upper quadrant consistent with a prior cholecystectomy. IMPRESSION: 1. Mild gaseous prominence of the bowel, likely secondary to a mild ileus. Electronically signed by: Waylon Vizcarra M.D. 11/21/2018 1:23 PM
--- NOTE | 2018-11-21 16:20 | Hospitalist Progress Note ---
Date of Service November 21, 2018 Assessment & Plan (1) Pancreatitis: - Lipase level was >900 at admission, now trending down. - CT A/P consistent with pancreatitis. 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 - Will consult GI for evaluation -- may require repeat ERCP. - NPO except meds; IV fluids at 200 cc/hr. - Hold home Suboxone; Morphine 2 mg IV q2hr prn pain. - Trend labs qAM. (2) UTI (urinary tract infection): - UC with gram negative bacilli. - Continue Ceftriaxone for empiric coverage. (3) DM (diabetes mellitus): - Hgb A1C was 12.3 in Jan 2018; will repeat lab in the AM. - SSI and Lantus as inpt -- BG has been >200, will increase Lantus to 10 units BID and tighten SSI coverage. (4) COPD (chronic obstructive pulmonary disease): - No evidence of acute exacerbation. (5) Allergic rhinitis: - Will monitor. (6) Chronic pain: - Unclear etiology -- ?neck pain per last PCP note in 2016. - Hold home Suboxone -- pt. refused medication this morning, last refill was on 11/16. - Gabapentin 300 mg QID. - Also receiving Morphine 2 mg IV q2hr prn acute pain. (7) HTN (hypertension): - Holding home Lisinopril. (8) ADHD: - Holding home Ritalin. (9) HLD (hyperlipidemia): - Holding home statin. (10) DVT prophylaxis: - Lovenox q24hr. Dispo: Med/surg with tele for treatment of pancreatitis. Supervising Physician Co-Signing Physician Notes HALIE Supervision Note: I did not personally see or examine the patient today, but I verified all anand points of HALIE Bejarano's assessment and plan with the following exceptions/additions: Patient here with recurrent acute pancreatitis with a history of stenosis and pancreatic duct requiring stenting approximately 9 months ago -Consult GI and continue n.p.o. status -Can increase morphine as needed for pain Subjective She continues to have abdominal pain despite receiving morphine, primarily right sided abdominal pain, worst while lying on the right side, and describes it as sharp in quality. 10/10 at baseline and is reducible to a 6 or 7 with the morphine. She has not had a bowel movement since admission. She was initially having nausea and vomiting over the weekend, but denies any hematemesis today. Continues to feel nauseated and is unable to get the pain under control. States she is not having any urinary symptoms currently, as well as denies chest pain, shortness of breath, fever or chills. The patient had a cholecystectomy approximately one year ago, in which the patient describes a provider operating to clean stuff out and believes that she received a stent that came out on its own. The patient denies any prior history of pancreatitis, kidney stones or current alcohol usage. The patient does have a history of suboxone use for pain management for her neck. Review of Systems Review of Systems: All systems reviewed & are unremarkable except as noted in HPI & below Constitutional: no fever, no chills, no fatigue and no weakness Respiratory: no cough, no dyspnea, no dyspnea on exertion and no wheezing Cardiovascular: no chest pain, no palpitations and no edema Gastrointestinal: + abdominal pain, + nausea and + constipation; no vomiting and no diarrhea/loose stools Genitourinary: no difficulty urinating Musculoskeletal: no back pain and no joint pain Integumentary: no non-healing lesions Physical Exam Physical Exam: General: Resting comfortably HEENT: NC/AT; PERRLA with EOMI; [place] conjunctiva, MMM. No erythema of posterior pharynx Neck: Supple and nontender Cardiac: RRR Lungs: Bibasilar rales noted. Abdomen: Mildly distended; Hypoactive X 4; Tender to palp over majority of abdomen Extremities: Warm. No edema present Neuro: No focal weakness Skin: No rash Results & Data Vital Signs (Past 12 Hours) Vital Signs Temp Pulse Pulse Resp BP Pulse Ox 11/21/18 14:56 36.9 C 67 19 158/75 H 95 11/21/18 11:26 36.7 C 75 20 174/74 H 96 11/21/18 10:52 76 11/21/18 07:25 37.0 C 70 18 101/52 L 93 11/21/18 04:46 36.9 C 74 20 159/78 H 90 Laboratory Results 11/21/18 11/21/18 11/21/18 Range/Units 11:44 08:36 06:43 WBC (4.8-10.8) K/uL RBC (4.2-5.4) M/uL Hgb (12.0-16.0) g/dL Hct (37-47) % MCV (80-100) fL MCH (25-34) pg MCHC (32-36) g/dL RDW Std Deviation (36.4-46.3) fL RDW Coeff of Francisco (11.5-14.5) % Plt Count (130-400) K/uL MPV (7.4-10.4) fL Immature Gran % (Auto) % Neut % (Auto) % Lymph % (Auto) % [place] % (Auto) % Eos % (Auto) % Baso % (Auto) % Immature Gran # (Auto) (0.00-0.02) K/uL Neut # (Auto) (1.4-6.5) K/uL Lymph # (Auto) (1.2-3.4) K/uL [place] # (Auto) (0.11-0.59) K/uL Eos # (Auto) (0-0.5) K/uL Baso # (Auto) (0-0.2) K/uL PT (9.0-12.0) Seconds INR (0.9-1.1) APTT (21.0-31.0) Seconds PTT Ratio Sodium 138 (136-145) mmol/L Potassium 3.5 (3.5-5.1) mmol/L Chloride 105 (98-107) mmol/L Carbon Dioxide 25 (21-32) mmol/L Anion Gap 8.0 (3-11) BUN 7 (7-18) mg/dl Creatinine 0.42 L (0.6-1.2) mg/dl Est Cr Clr Drug Dosing 138.9 ml/min Est GFR ( Amer) 126.4 Est GFR (Non-Af Amer) 109.1 BUN/Creatinine Ratio 15.7 (10-20) Glucose 219 H (70-99) mg/dl POC Glucose 220 H 225 H (70-99) Calcium 8.3 L (8.5-10.1) mg/dl Total Bilirubin 0.8 (0.2-1) mg/dl AST 10 L (15-37) U/L ALT 15 (12-78) U/L Alkaline Phosphatase 94 (45-117) U/L Total Protein 6.6 (6.4-8.2) gm/dl Albumin 2.6 L (3.4-5.0) gm/dl Globulin 4.0 (2.5-4.0) gm/dl Albumin/Globulin Ratio 0.7 L (0.9-2) Lipase 712 H (73-393) U/L 11/21/18 11/20/18 11/20/18 Range/Units 06:43 21:03 20:35 WBC 10.35 (4.8-10.8) K/uL RBC 5.11 (4.2-5.4) M/uL Hgb 14.4 (12.0-16.0) g/dL Hct 43.1 (37-47) % MCV 84.3 (80-100) fL MCH 28.2 (25-34) pg MCHC 33.4 (32-36) g/dL RDW Std Deviation 39.1 (36.4-46.3) fL RDW Coeff of [place] 12.8 (11.5-14.5) % Plt Count 234 (130-400) K/uL MPV 11.0 H (7.4-10.4) fL Immature Gran % (Auto) 0.2 % Neut % (Auto) 62.8 % Lymph % (Auto) 31.2 % [place] % (Auto) 5.1 % Eos % (Auto) 0.5 % Baso % (Auto) 0.2 % Immature Gran # (Auto) 0.02 (0.00-0.02) K/uL Neut # (Auto) 6.50 (1.4-6.5) K/uL Lymph # (Auto) 3.23 (1.2-3.4) K/uL [place] # (Auto) 0.53 (0.11-0.59) K/uL Eos # (Auto) 0.05 (0-0.5) K/uL Baso # (Auto) 0.02 (0-0.2) K/uL PT 10.3 (9.0-12.0) Seconds INR 1.0 (0.9-1.1) APTT 27.3 (21.0-31.0) Seconds PTT Ratio 1.0 Sodium (136-145) mmol/L Potassium (3.5-5.1) mmol/L Chloride (98-107) mmol/L Carbon Dioxide (21-32) mmol/L Anion Gap (3-11) BUN (7-18) mg/dl Creatinine (0.6-1.2) mg/dl Est Cr Clr Drug Dosing ml/min Est GFR ( Amer) Est GFR (Non-Af Amer) BUN/Creatinine Ratio (10-20) Glucose (70-99) mg/dl POC Glucose 231 H (70-99) Calcium (8.5-10.1) mg/dl Total Bilirubin (0.2-1) mg/dl AST (15-37) U/L ALT (12-78) U/L Alkaline Phosphatase (45-117) U/L Total Protein (6.4-8.2) gm/dl Albumin (3.4-5.0) gm/dl Globulin (2.5-4.0) gm/dl Albumin/Globulin Ratio (0.9-2) Lipase (73-393) U/L PG Care Time/CCT Total # of Minutes Spent Total Time Spent with Patient: Total time spent is greater than 50% in coordination of care (as documented) at patient's floor/unit and/or counseling patient: (1) UTI (urinary tract infection) Hematuria presence: with hematuria Urinary tract infection type: site unspecified Qualified Code(s): N39.0 - Urinary tract infection, site not specified; R31.9 - Hematuria, unspecified (2) Pancreatitis Acute pancreatitis complication: unspecified Chronicity: acute Pancreatitis type: unspecified pancreatitis type Qualified Code(s): K85.90 - Acute burroughs creatitis without necrosis or infection, unspecified
[2018-11-21] MEDS: LACTATED RINGER'S 1,000 ML IV SCH ×2 (17:47→22:59)
[2018-11-21] MEDS: ENOXAPARIN INJ 40 MG/0.4 ML SYR SQ SCH (20:23)
[2018-11-21] MEDS: INSULIN GLARGINE SOLOSTAR 100 UNITS/ML 3 ML PEN SQ SCH (20:24)
[2018-11-21] MEDS ORDERED: MoRPHine SULFATE 4 MG/ML 1 ML CARP\\VIAL ONE (22:55)
[2018-11-22] MEDS: MoRPHine SULFATE 2 MG/ML CARP IV PRN ×5 (01:01→11:23)
[2018-11-22] MEDS: ONDANSETRON INJ 2 MG/ML 2 ML VIAL IV PRN ×2 (03:23→11:23)
[2018-11-22] MEDS: LACTATED RINGER'S 1,000 ML IV SCH ×4 (03:59→20:41)
[2018-11-22] MEDS: INSULIN ASPART 100 UNITS/ML 3 ML PEN SC SCH ×3 (06:18→19:19)
[2018-11-22 07:48] LABS: Basophils # (auto) 0.03 K/uL (0-0.2); Basophils % (auto) 0.3 %; Eosinophils # (auto) 0.07 K/uL (0-0.5); Eosinophils % (auto) 0.7 %; Hematocrit (blood only) 41.4 % (37-47); Hemoglobin 13.9 g/dL (12.0-16.0); Immature Granulocytes # (auto) 0.03 K/uL (0.00-0.02); Immature Granulocytes % (auto) 0.3 %; Lymphocytes % (auto) 37.8 %; Mean Corpuscular Hgb Conc 33.6 g/dL (32-36); Mean Corpuscular Volume 86.1 fL (80-100); Mean Platelet Volume 10.8 fL (7.4-10.4); Monocytes # (auto) 0.58 K/uL (0.11-0.59); Monocytes % (auto) 5.6 %; Neutrophils # (auto) 5.71 K/uL (1.4-6.5); Neutrophils % (auto) 55.3 %; Platelet Count 224 K/uL (130-400); RDW Coefficient of Variation 12.8 % (11.5-14.5); RDW Standard Deviation 40.4 fL (36.4-46.3); Red Blood Count 4.81 M/uL (4.2-5.4); White Blood Count 10.32 K/uL (4.8-10.8)
[2018-11-22 08:27] LABS: Albumin Level 2.4 gm/dl (3.4-5.0); BUN Creatinine Ratio 13.4 (10-20); Calcium 8.6 mg/dl (8.5-10.1); Est GFR (African American) 126.4; Est GFR (Non-African American) 109.1; Potassium 3.5 mmol/L (3.5-5.1)
[2018-11-22 08:30] LABS: Albumin Globulin Ratio 0.6 (0.9-2); Bilirubin,Total 0.6 mg/dl (0.2-1); Globulin 3.8 gm/dl (2.5-4.0); Total Protein 6.2 gm/dl (6.4-8.2)
[2018-11-22 08:32] LABS: Estimated Average Glucose 286 mg/dl; Hemoglobin A1C 11.6 % (4.5-5.6)
[2018-11-22] MEDS: GABAPENTIN 300 MG CAP PO SCH ×4 (08:56→21:58)
[2018-11-22] MEDS: FAMOTIDINE 20 MG in SYRINGE 3 ML IV SCH ×2 (08:56→21:56)
[2018-11-22] MEDS: INSULIN GLARGINE SOLOSTAR 100 UNITS/ML 3 ML PEN SQ SCH ×2 (08:57→21:57)
[2018-11-22] MEDS ORDERED: ATORVASTATIN 40 MG TAB PO SCH (09:00)
[2018-11-22] MEDS: NICOTINE 21 MG/24 HR TDSY TD SCH (13:11)
[2018-11-22] MEDS: cefTRIAXone SODIUM 2,000 MG in DEXTROSE 5% 50 ML IV SCH (13:13)
[2018-11-22] MEDS: MoRPHine SULFATE 4 MG/ML 1 ML CARP\\VIAL IV PRN ×4 (14:10→21:56)
[2018-11-22] MEDS: POLYETHYLENE (MIRALAX) 17 GM PACK PO SCH (14:21)
--- NOTE | 2018-11-22 14:32 | Hospitalist Progress Note ---
Date of Service November 22, 2018 Assessment & Plan (1) Pancreatitis: - Lipase level was >900 at admission, now improving. Pt. continues to have diffuse severe abd pain. - CT A/P consistent with pancreatitis; f/u KUB showed ileus, otherwise negative. - Previously had a stricture in her pancreatic duct which was stented during ERCP in January 2018-- denies ETOH use at home, h/o cholecystectomy. - Consulting GI for evaluation, may require ERCP. - NPO except meds; IV fluids at 200 cc/hr. - Holding home Suboxone; Morphine 4 mg IV q2hr prn pain. - Trend labs daily. (2) UTI (urinary tract infection): - UC with Klebsiella. - Continue Ceftriaxone (pansensitive) (3) DM (diabetes mellitus): - Hgb A1C was 12.3 in Jan 2018; repeat A1C was 11.6. - informatics educator consulted -- may require addition of bolus insulin at home with meals. - SSI and Lantus BID as inpt -- BG is now improved. (4) COPD (chronic obstructive pulmonary disease): - No evidence of acute exacerbation. - Current 1 PPD smoker -- ordered nicotine patch. (5) Allergic rhinitis: - Will monitor. (6) Chronic pain: - Unclear etiology -- ?neck pain per last PCP note in 2016. - Holding home Suboxone. - Gabapentin 300 mg QID. - Also receiving Morphine 2 mg IV q2hr prn acute pain. (7) HTN (hypertension): - Holding home Lisinopril. (8) ADHD: - Holding home Ritalin. (9) HLD (hyperlipidemia): - Holding home statin. (10) DVT prophylaxis: - Lovenox q24hr. Dispo: Med/surg with tele for treatment of pancreatitis. Supervising Physician Co-Signing Physician Notes HALIE Supervision Note: I did not personally see or examine the patient today, but I verified all anand points of HALIE Bejarano's assessment and plan with the following exceptions/additions: None Subjective Pt. has ongoing abdominal pain -- has been using frequent doses of IV Morphine. She denies nausea/vomiting. Last BM was last week, is passing gas. Has not received PO intake due to abd pain. Will continue to monitor, GI consulted. Review of Systems Review of Systems: All systems reviewed & are unremarkable except as noted in HPI & below Constitutional: no fever, no chills, no fatigue, no weakness and no anorexia Respiratory: no cough, no dyspnea, no dyspnea on exertion and no wheezing Cardiovascular: no chest pain, no palpitations and no edema Gastrointestinal: + abdominal pain and + constipation; no nausea, no vomiting and no diarrhea/loose stools Genitourinary: no difficulty urinating Musculoskeletal: no back pain and no joint pain Integumentary: no non-healing lesions Physical Exam Physical Exam: General: Resting comfortably HEENT: NC/AT; PERRLA with EOMI; [place] conjunctiva, MMM. No erythema of posterior pharynx Neck: Supple and nontender Cardiac: RRR Lungs: CTA throughout Abdomen: Mildly distended; Hypoactive X 4; Tender to palp over majority of abd. Extremities: Warm. No edema present Neuro: No focal weakness Skin: No rash Results & Data Vital Signs (Past 12 Hours) Vital Signs Temp Pulse Pulse Resp BP Pulse Ox 11/22/18 13:42 64 11/22/18 12:10 36.8 C 63 20 155/76 H 95 11/22/18 08:14 36.8 C 73 20 126/76 90 11/22/18 04:00 37.1 C 66 20 145/78 H 92 Laboratory Results 11/22/18 11/22/18 11/22/18 Range/Units 11:40 07:34 07:34 WBC (4.8-10.8) K/uL RBC (4.2-5.4) M/uL Hgb (12.0-16.0) g/dL Hct (37-47) % MCV (80-100) fL MCH (25-34) pg MCHC (32-36) g/dL RDW Std Deviation (36.4-46.3) fL RDW Coeff of Francisco (11.5-14.5) % Plt Count (130-400) K/uL MPV (7.4-10.4) fL Immature Gran % (Auto) % Neut % (Auto) % Lymph % (Auto) % [place] % (Auto) % Eos % (Auto) % Baso % (Auto) % Immature Gran # (Auto) (0.00-0.02) K/uL Neut # (Auto) (1.4-6.5) K/uL Lymph # (Auto) (1.2-3.4) K/uL [place] # (Auto) (0.11-0.59) K/uL Eos # (Auto) (0-0.5) K/uL Baso # (Auto) (0-0.2) K/uL Sodium 141 (136-145) mmol/L Potassium 3.5 (3.5-5.1) mmol/L Chloride 107 (98-107) mmol/L Carbon Dioxide 26 (21-32) mmol/L Anion Gap 8.0 (3-11) BUN 6 L (7-18) mg/dl Creatinine 0.42 L (0.6-1.2) mg/dl Est Cr Clr Drug Dosing 139.0 ml/min Est GFR ( Amer) 126.4 Est GFR (Non-Af Amer) 109.1 BUN/Creatinine Ratio 13.4 (10-20) Glucose 154 H (70-99) mg/dl POC Glucose 148 H (70-99) Estimat Average Glucose 286 mg/dl Hemoglobin A1c 11.6 H (4.5-5.6) % Calcium 8.6 (8.5-10.1) mg/dl Total Bilirubin 0.6 (0.2-1) mg/dl AST 8 L (15-37) U/L ALT 12 (12-78) U/L Alkaline Phosphatase 83 (45-117) U/L Total Protein 6.2 L (6.4-8.2) gm/dl Albumin 2.4 L (3.4-5.0) gm/dl Globulin 3.8 (2.5-4.0) gm/dl Albumin/Globulin Ratio 0.6 L (0.9-2) Lipase 482 H (73-393) U/L 11/22/18 11/22/18 11/21/18 Range/Units 07:34 06:06 23:55 WBC 10.32 (4.8-10.8) K/uL RBC 4.81 (4.2-5.4) M/uL Hgb 13.9 (12.0-16.0) g/dL Hct 41.4 (37-47) % MCV 86.1 (80-100) fL MCH 28.9 (25-34) pg MCHC 33.6 (32-36) g/dL RDW Std Deviation 40.4 (36.4-46.3) fL RDW Coeff of Francisco 12.8 (11.5-14.5) % Plt Count 224 (130-400) K/uL MPV 10.8 H (7.4-10.4) fL Immature Gran % (Auto) 0.3 % Neut % (Auto) 55.3 % Lymph % (Auto) 37.8 % [place] % (Auto) 5.6 % Eos % (Auto) 0.7 % Baso % (Auto) 0.3 % Immature Gran # (Auto) 0.03 H (0.00-0.02) K/uL Neut # (Auto) 5.71 (1.4-6.5) K/uL Lymph # (Auto) 3.90 H (1.2-3.4) K/uL [place] # (Auto) 0.58 (0.11-0.59) K/uL Eos # (Auto) 0.07 (0-0.5) K/uL Baso # (Auto) 0.03 (0-0.2) K/uL Sodium (136-145) mmol/L Potassium (3.5-5.1) mmol/L Chloride (98-107) mmol/L Carbon Dioxide (21-32) mmol/L Anion Gap (3-11) BUN (7-18) mg/dl Creatinine (0.6-1.2) mg/dl Est Cr Clr Drug Dosing ml/min Est GFR ( Amer) Est GFR (Non-Af Amer) BUN/Creatinine Ratio (10-20) Glucose (70-99) mg/dl POC Glucose 143 H 204 H (70-99) Estimat Average Glucose mg/dl Hemoglobin A1c (4.5-5.6) % Calcium (8.5-10.1) mg/dl Total Bilirubin (0.2-1) mg/dl AST (15-37) U/L ALT (12-78) U/L Alkaline Phosphatase (45-117) U/L Total Protein (6.4-8.2) gm/dl Albumin (3.4-5.0) gm/dl Globulin (2.5-4.0) gm/dl Albumin/Globulin Ratio (0.9-2) Lipase (73-393) U/L 11/21/ Range/Units 18:13 WBC (4.8-10.8) K/uL RBC (4.2-5.4) M/uL Hgb (12.0-16.0) g/dL Hct (37-47) % MCV (80-100) fL MCH (25-34) pg MCHC (32-36) g/dL RDW Std Deviation (36.4-46.3) fL RDW Coeff of [place] (11.5-14.5) % Plt Count (130-400) K/uL MPV (7.4-10.4) fL Immature Gran % (Auto) % Neut % (Auto) % Lymph % (Auto) % [place] % (Auto) % Eos % (Auto) % Baso % (Auto) % Immature Gran # (Auto) (0.00-0.02) K/uL Neut # (Auto) (1.4-6.5) K/uL Lymph # (Auto) (1.2-3.4) K/uL [place] # (Auto) (0.11-0.59) K/uL Eos # (Auto) (0-0.5) K/uL Baso # (Auto) (0-0.2) K/uL Sodium (136-145) mmol/L Potassium (3.5-5.1) mmol/L Chloride (98-107) mmol/L Carbon Dioxide (21-32) mmol/L Anion Gap (3-11) BUN (7-18) mg/dl Creatinine (0.6-1.2) mg/dl Est Cr Clr Drug Dosing ml/min Est GFR ( Amer) Est GFR (Non-Af Amer) BUN/Creatinine Ratio (10-20) Glucose (70-99) mg/dl POC Glucose 184 H (70-99) Estimat Average Glucose mg/dl Hemoglobin A1c (4.5-5.6) % Calcium (8.5-10.1) mg/dl Total Bilirubin (0.2-1) mg/dl AST (15-37) U/L ALT (12-78) U/L Alkaline Phosphatase (45-117) U/L Total Protein (6.4-8.2) gm/dl Albumin (3.4-5.0) gm/dl Globulin (2.5-4.0) gm/dl Albumin/Globulin Ratio (0.9-2) Lipase (73-393) U/L PG Care Time/CCT Total # of Minutes Spent Total Time Spent with Patient: Total time spent is greater than 50% in coordination of care (as documented) at patient's floor/unit and/or counseling patient: (1) UTI (urinary tract infection) Hematuria presence: with hematuria Urinary tract infection type: site unspecified Qualified Code(s): N39.0 - Urinary tract infection, site not specified; R31.9 - Hematuria, unspecified (2) Pancreatitis Acute pancreatitis complication: unspecified Chronicity: acute Pancreatitis type: unspecified pancreatitis type Qualified Code(s): K85.90 - Acute pancreatitis without necrosis or infection, unspecified
--- NOTE | 2018-11-22 14:34 | Gastrointestinal Consultation ---
Date of Consultation November 22, 2018 Assessment & Plan (1) Pancreatitis: LFTs normal. Pancreatitis may be secondary to medication - Atorvastatin vs Lisinopril, both of which are new in the past two weeks. Would recommend changing agents. Will obtain a lipid panel as well to rule out hypertrigl yceridemia as contributing to pancreatitis. Keep NPO until pain is better controlled. IV fluid hydration. Anti-emetics. Continue to monitor labs. Would plan for OP EUS for further evaluation in 4-6 weeks. Miralax once daily. Supervising Physician Co-Signing Physician Notes I have seen and examined the patient with Americo/ YECENIA Vazquez whose note reflects our findings and plan. Mild pancreatitis. LFTs normal. Recently started on EMMANUEL-I and statin. No biliary dilation to suggest re-stricture. Continue with conservative mgt. Will need an outpatient EUS in 6-8 weeks to further eval the pancreas. History of Present Illness Reason for Consultation: Pancreatitis Requesting Physician: Breann Doan MD Attending Physician: Breann Doan MD History of Present Illness 62 year old female with a hx of HTN, HLD, DM, COPD, and pancreatitis, admitted 11/20/18 with epigastric pain, n/v and dysuria, found to again have pancreatitis, as evidenced on CT scan a/p. She was noted to have an elevated WBC count on admission, and this has normalized. LFTs have been normal. Lipase was 900+ on admission, and today is 482. She last had pancreatitis in January of 2018. At that time, she did have elevated LFTs, and ERCP was performed, showing a stenotic major papilla with choledocholithiasis. Sphincterotomy was performed and the duct was swept. One plastic stent was placed in the pancreatic duct. She states that her pain is different this time. She reports pain across the upper abdomen, worse in the RUQ, but she has a lot of abdominal bloating this time. She is nauseous, but denies any emesis. She has not had a BM since Tuesday. Normally she has a BM about every other day. Stool is typically formed/solid, but Tuesday it was very hard. No BRB or melena. KUB shows an ileus Last colonoscopy was about 5 years ago in [place]. Polyps were found and she is due for repeat. Had an EGD about that same time, which she states was normal. She is s/p cholecystectomy. She denies any ETOH use. She reports being started on 2 new medications - Lisinopril and Atorvastatin, both of which can cause pancreatitis. I do not see a recent lipid panel on the chart. Allergies Allergy/AdvReac Type Severity Reaction Status Date / Time No Known Allergies Allergy Verified 11/20/18 11:25 Home Medications Home Medications Medication Instructions Recorded Confirmed Type Lantus U-100 Insulin 20 unit SUBCUT QAM 01/31/18 11/20/18 History albuterol sulfate [Ventolin HFA] 2 puff INHALATION Q6H PRN 01/31/18 11/20/18 History gabapentin 300 mg PO QID 01/31/18 11/20/18 History metformin 1,000 mg PO BIDM 01/31/18 11/20/18 History atorvastatin 40 mg PO QAM 11/20/18 11/20/18 History buprenorphine-naloxone [Suboxone] 1.5 film SUBLINGUAL DAILY 11/20/18 11/20/18 History cetirizine 10 mg PO QAM 11/20/18 11/20/18 History lisinopril 5 mg PO QAM 11/20/18 11/20/18 History methylphenidate HCl 5 mg PO BIDM 11/20/18 11/20/18 History Patient History Medical History Pancreatitis (Acute) UTI (urinary tract infection) (Acute) DM (diabetes mellitus) (Chronic) COPD (chronic obstructive pulmonary disease) (Chronic) UTI (urinary tract infection) (Acute) Leukocytosis Pyelonephritis (Acute) Pancreatitis, acute (Acute) Enteritis RADHA (generalized anxiety disorder) (Chronic) PTSD (post-traumatic stress disorder) (Chronic) Surgical History No pertinent past surgical history Family History Other No pertinent family history Social History Preferred Language: Citizen Of [place] Communication Ability: Effective Visual Impairment: No Limitations Hearing Ability: Normal Practice Lead Required: No Beliefs That Will Affect Care: None marital status details: Current Living Situation: Significant Other Other Information That Helps Us Care for You: No Feels Safe at Home: Yes Safety Concerns: Feels Safe At This Time Smoking Status: Current every day smoker Tobacco Type: cigarettes Cigarettes Per Day: 20 Do You Dip or Chew Tobacco: No Second Hand Exposure: Yes Tobacco Cessation Education Requested by Patient: No Hx Alcohol Use: No Hx Substance Use: No Review of Systems Constitutional: no fever, no chills, no fatigue and no weight loss Eyes: no eye pain and no worsening vision Ear, Nose, Mouth, Throat: no ear pain, no hearing loss, no nasal congestion and no sore throat Respiratory: no cough, no chest congestion and no wheezing Cardiovascular: no chest pain and no dyspnea Gastrointestinal: as per Subjective / HPI Genitourinary: no dysuria and no urinary incontinence Musculoskeletal: no joint pain Integumentary: no rash and no pruritus Neurologic: no tingling, no numbness and no dizziness Psychiatric: no suicidal ideation and no confusion Endocrine: no cold intolerance and no heat intolerance Hematologic / Lymphatic: no easy bleeding and no easy bruising Allergy / Immunological: no problem reported Physical Exam Constitutional: no acute distress Eyes: + anicteric sclerae ENMT: external ear and nose normal, oropharynx normal Neck: normal visual inspection Respiratory: Auscultation: + wheezes Cardiovascular: Rate/Rhythm: regular rate and regular rhythm Heart Sounds: no murmur Gastrointestinal (Abdomen): Inspection/Auscultation: + abdomen distended and + hypoactive bowel sounds Percussion/Palpation: + abdomen tender (Diffuse tenderness to palpation, >RLQ) Musculoskeletal: Head/Neck/Chest: normocephalic and head atraumatic Skin: no rashes, warm and dry Neurologic: moves all extremities; no focal motor deficits Psychiatric: Orientation: alert and oriented x 3 Results & Data Vital Signs (Past 12 Hours) Vital Signs Temp Pulse Pulse Resp BP Pulse Ox 11/22/18 13:42 64 11/22/18 12:10 36.8 C 63 20 155/76 H 95 11/22/18 08:14 36.8 C 73 20 126/76 90 11/22/18 04:00 37.1 C 66 20 145/78 H 92 Laboratory Results - last 24 hr 11/21/18 11/21/18 11/22/18 18:13 23:55 06:06 WBC RBC Hgb Hct MCV MCH MCHC RDW Std Deviation RDW Coeff of Francisco Plt Count MPV Immature Gran % (Auto) Neut % (Auto) Lymph % (Auto) [place] % (Auto) Eos % (Auto) Baso % (Auto) Immature Gran # (Auto) Neut # (Auto) Lymph # (Auto) [place] # (Auto) Eos # (Auto) Baso # (Auto) Sodium Potassium Chloride Carbon Dioxide Anion Gap BUN Creatinine Est Cr Clr Drug Dosing Est GFR ( Amer) Est GFR (Non-Af Amer) BUN/Creatinine Ratio Glucose POC Glucose 184 H 204 H 143 H Estimat Average Glucose Hemoglobin A1c Calcium Total Bilirubin AST ALT Alkaline Phosphatase Total Protein Albumin Globulin Albumin/Globulin Ratio Lipase 11/22/18 11/22/18 11/22/18 07:34 07:34 07:34 WBC 10.32 RBC 4.81 Hgb 13.9 Hct 41.4 MCV 86.1 MCH 28.9 MCHC 33.6 RDW Std Deviation 40.4 RDW Coeff of Francisco 12.8 Plt Count 224 MPV 10.8 H Immature Gran % (Auto) 0.3 Neut % (Auto) 55.3 Lymph % (Auto) 37.8 [place] % (Auto) 5.6 Eos % (Auto) 0.7 Baso % (Auto) 0.3 Immature Gran # (Auto) 0.03 H Neut # (Auto) 5.71 Lymph # (Auto) 3.90 H [place] # (Auto) 0.58 Eos # (Auto) 0.07 Baso # (Auto) 0.03 Sodium 141 Potassium 3.5 Chloride 107 Carbon Dioxide 26 Anion Gap 8.0 BUN 6 L Creatinine 0.42 L Est Cr Clr Drug Dosing 139.0 Est GFR ( Amer) 126.4 Est GFR (Non-Af Amer) 109.1 BUN/Creatinine Ratio 13.4 Glucose 154 H POC Glucose Estimat Average Glucose 286 Hemoglobin A1c 11.6 H Calcium 8.6 Total Bilirubin 0.6 AST 8 L ALT 12 Alkaline Phosphatase 83 Total Protein 6.2 L Albumin 2.4 L Globulin 3.8 Albumin/Globulin Ratio 0.6 L Lipase 482 H 11/22/18 11:40 WBC RBC Hgb Hct MCV MCH MCHC RDW Std Deviation RDW Coeff of Francisco Plt Count MPV Immature Gran % (Auto) Neut % (Auto) Lymph % (Auto) [place] % (Auto) Eos % (Auto) Baso % (Auto) Immature Gran # (Auto) Neut # (Auto) Lymph # (Auto) [place] # (Auto) Eos # (Auto) Baso # (Auto) Sodium Potassium Chloride Carbon Dioxide Anion Gap BUN Creatinine Est Cr Clr Drug Dosing Est GFR ( Amer) Est GFR (Non-Af Amer) BUN/Creatinine Ratio Glucose POC Glucose 148 H Estimat Average Glucose Hemoglobin A1c Calcium Total Bilirubin AST ALT Alkaline Phosphatase Total Protein Albumin Globulin Albumin/Globulin Ratio Lipase CTAP: IMPRESSION: 1. Findings compatible with mild acute uncomplicated pancreatitis. No acute peripancreatic fluid collection. 2. Mild wall thickening of the duodenum, likely reactive. 3. No bowel obstruction or pneumoperitoneum. 4. Cholecystectomy. 5. Urinary bladder wall thickening suspicious for cystitis. Correlate with urinalysis. 6. Additional findings as above. KUB: IMPRESSION: 1. Mild gaseous prominence of the bowel, likely secondary to a mild ileus. (1) Pancreatitis Acute pancreatitis complication: unspecified Chronicity: acute Pancreatitis type: unspecified pancreatitis type Qualified Code(s): K85.90 - Acute pancreatitis without necrosis or infection, unspecified
[2018-11-22 15:27] LABS: Chol HDL Ratio 3; Cholesterol 111 mg/dl (0-200); HDL Cholesterol 35 mg/dl; LDL Cholesterol Calculated 53 mg/dl; Triglycerides 116 mg/dl (0-150); VLDL Cholesterol 23 mg/dl
[2018-11-22] MEDS: DOCUSATE SODIUM/SENNA 50/8.6MG TAB PO SCH ×2 (18:59→22:01)
[2018-11-22] MEDS: ENOXAPARIN INJ 40 MG/0.4 ML SYR SQ SCH (21:59)
[2018-11-23] MEDS: LACTATED RINGER'S 1,000 ML IV SCH ×5 (00:02→23:07)
[2018-11-23] MEDS: MoRPHine SULFATE 4 MG/ML 1 ML CARP\\VIAL IV PRN ×6 (00:02→21:06)
[2018-11-23] MEDS: ONDANSETRON INJ 2 MG/ML 2 ML VIAL IV PRN (05:37)
[2018-11-23 06:35] LABS: Basophils # (auto) 0.02 K/uL (0-0.2); Basophils % (auto) 0.2 %; Eosinophils % (auto) 1.1 %; Hematocrit (blood only) 40.7 % (37-47); Hemoglobin 13.6 g/dL (12.0-16.0); Immature Granulocytes # (auto) 0.01 K/uL (0.00-0.02); Immature Granulocytes % (auto) 0.1 %; Lymphocytes # (auto) 3.13 K/uL (1.2-3.4); Lymphocytes % (auto) 33.2 %; Mean Corpuscular Hgb Conc 33.4 g/dL (32-36); Mean Corpuscular Volume 84.6 fL (80-100); Mean Platelet Volume 10.6 fL (7.4-10.4); Monocytes # (auto) 0.57 K/uL (0.11-0.59); Monocytes % (auto) 6.1 %; Neutrophils # (auto) 5.59 K/uL (1.4-6.5); Neutrophils % (auto) 59.3 %; Platelet Count 213 K/uL (130-400); RDW Coefficient of Variation 12.8 % (11.5-14.5); RDW Standard Deviation 38.9 fL (36.4-46.3); Red Blood Count 4.81 M/uL (4.2-5.4); White Blood Count 9.42 K/uL (4.8-10.8)
[2018-11-23] MEDS: INSULIN ASPART 100 UNITS/ML 3 ML PEN SC SCH ×5 (06:37→21:16)
[2018-11-23 07:11] LABS: Albumin Level 2.4 gm/dl (3.4-5.0); BUN Creatinine Ratio 10.5 (10-20); Calcium 8.8 mg/dl (8.5-10.1); Creatinine Clr Calc Pharmacy 126.6 ml/min; Est GFR (African American) 121.8; Est GFR (Non-African American) 105.1; Potassium 4.1 mmol/L (3.5-5.1)
[2018-11-23 07:14] LABS: Albumin Globulin Ratio 0.6 (0.9-2); Bilirubin,Total 0.8 mg/dl (0.2-1); Globulin 3.7 gm/dl (2.5-4.0); Total Protein 6.1 gm/dl (6.4-8.2)
[2018-11-23] MEDS: DOCUSATE SODIUM/SENNA 50/8.6MG TAB PO SCH ×2 (07:41→21:14)
[2018-11-23] MEDS: POLYETHYLENE (MIRALAX) 17 GM PACK PO SCH ×2 (07:41→21:12)
[2018-11-23] MEDS: INSULIN GLARGINE SOLOSTAR 100 UNITS/ML 3 ML PEN SQ SCH ×2 (07:42→21:17)
[2018-11-23] MEDS: GABAPENTIN 300 MG CAP PO SCH ×4 (07:42→21:14)
[2018-11-23] MEDS: NICOTINE 21 MG/24 HR TDSY TD SCH (08:23)
[2018-11-23] MEDS: FAMOTIDINE 20 MG in SYRINGE 3 ML IV SCH ×2 (08:23→21:06)
--- NOTE | 2018-11-23 10:17 | XRay Report ---
XR KUB/Abdomen 1 view CLINICAL HISTORY: Abd pain COMPARISON STUDY: 11/21/2018 FINDINGS: 2 supine views the abdomen provided for interpretation. There is mild gaseous prominence of the transverse colon. There is scattered small bowel gas. There is a small amount of right colonic s tool. There are surgical clips in the right upper quadrant consistent with a prior cholecystectomy. T here are multiple nonspecific pelvic basin calcifications. IMPRESSION: Mild gaseous prominence of the transverse colon. No conventional radiographic evidence o f a high-grade bowel obstruction. Electronically signed by: Waylon Vizcarra M.D. 11/23/2018 10:16 AM
--- NOTE | 2018-11-23 11:21 | Gastroenterology Progress Note ---
Date of Service November 23, 2018 Assessment & Plan (1) Pancreatitis: Pancreatitis may be secondary to medication - Atorvastatin vs Lisinopril, both of which are new in the past two weeks. These have been stopped. Lipid panel normal. Would continue IV fluid hydration. Continue to monitor labs. Would increase Miralax to BID dosing. OK to give trial of clear liquids. NPO again if pain worsens. OP EUS for further evaluation in 4-6 weeks. Supervising Physician Co-Signing Physician Notes I have seen and examined the patient with Domingo Vazquez PA-C whose note reflects our findings and plan. Subjective Patient continues with significant abdominal pain in the epigastrium/periumbilical area. Has had 2 doses of Miralax but has not moved her bowels as of yet. Afebrile. Labs stable. No n/v. Asking to eat. Review of Systems Constitutional: no fever, no chills, no fatigue and no weight loss Eyes: no eye pain and no worsening vision Ear, Nose, Mouth, Throat: no ear pain, no hearing loss, no nasal congestion and no sore throat Respiratory: no cough, no chest congestion and no wheezing Cardiovascular: no chest pain and no dyspnea Gastrointestinal: as per Subjective / HPI Genitourinary: no dysuria and no urinary incontinence Musculoskeletal: no joint pain Integumentary: no rash and no pruritus Neurologic: no tingling, no numbness and no dizziness Psychiatric: no suicidal ideation and no confusion Endocrine: no cold intolerance and no heat intolerance Hematologic / Lymphatic: no easy bleeding and no easy bruising Allergy / Immunological: no problem reported Physical Exam Constitutional: WD/WN, vitals as above no acute distress Eyes: + anicteric sclerae ENMT: external ear and nose normal, oropharynx normal Neck: normal visual inspection Respiratory: Auscultation: + wheezes Cardiovascular: Rate/Rhythm: regular rate and regular rhythm Heart Sounds: no murmur Gastrointestinal (Abdomen): Inspection/Auscultation: + hypoactive bowel sounds Percussion/Palpation: + abdomen tender (periumbilical) and abdomen soft Musculoskeletal: Head/Neck/Chest: normocephalic and head atraumatic Skin: no rashes, warm and dry Neurologic: moves all extremities; no focal motor deficits Psychiatric: Orientation: alert and oriented x 3 Results & Data Vital Signs (Past 12 Hours) Vital Signs Temp Pulse Pulse Resp BP BP Pulse Ox 11/23/18 10:51 61 11/23/18 07:34 36.9 C 57 L 16 160/75 H 97 11/23/18 04:00 36.8 C 56 L 18 134/70 96 11/23/18 00:00 55 L Laboratory Results - last 24 hr 11/22/18 11/22/18 11/22/18 07:34 11:40 18:31 WBC RBC Hgb Hct MCV MCH MCHC RDW Std Deviation RDW Coeff of Francisco Plt Count MPV Immature Gran % (Auto) Neut % (Auto) Lymph % (Auto) [place] % (Auto) Eos % (Auto) Baso % (Auto) Immature Gran # (Auto) Neut # (Auto) Lymph # (Auto) [place] # (Auto) Eos # (Auto) Baso # (Auto) Sodium Potassium Chloride Carbon Dioxide Anion Gap BUN Creatinine Est Cr Clr Drug Dosing Est GFR ( Amer) Est GFR (Non-Af Amer) BUN/Creatinine Ratio Glucose POC Glucose 148 H 152 H Calcium Total Bilirubin AST ALT Alkaline Phosphatase Total Protein Albumin Globulin Albumin/Globulin Ratio Triglycerides 116 Cholesterol 111 LDL Cholesterol, Calc 53 VLDL Cholesterol, Calc 23 HDL Cholesterol 35 Cholesterol/HDL Ratio 3 Lipase 11/23/18 11/23/18 11/23/18 00:04 06:01 06:22 WBC 9.42 RBC 4.81 Hgb 13.6 Hct 40.7 MCV 84.6 MCH 28.3 MCHC 33.4 RDW Std Deviation 38.9 RDW Coeff of Francisco 12.8 Plt Count 213 MPV 10.6 H Immature Gran % (Auto) 0.1 Neut % (Auto) 59.3 Lymph % (Auto) 33.2 [place] % (Auto) 6.1 Eos % (Auto) 1.1 Baso % (Auto) 0.2 Immature Gran # (Auto) 0.01 Neut # (Auto) 5.59 Lymph # (Auto) 3.13 [place] # (Auto) 0.57 Eos # (Auto) 0.10 Baso # (Auto) 0.02 Sodium Potassium Chloride Carbon Dioxide Anion Gap BUN Creatinine Est Cr Clr Drug Dosing Est GFR ( Amer) Est GFR (Non-Af Amer) BUN/Creatinine Ratio Glucose POC Glucose 135 H 123 H Calcium Total Bilirubin AST ALT Alkaline Phosphatase Total Protein Albumin Globulin Albumin/Globulin Ratio Triglycerides Cholesterol LDL Cholesterol, Calc VLDL Cholesterol, Calc HDL Cholesterol Cholesterol/HDL Ratio Lipase 11/23/18 06:22 WBC RBC Hgb Hct MCV MCH MCHC RDW Std Deviation RDW Coeff of Francisco Plt Count MPV Immature Gran % (Auto) Neut % (Auto) Lymph % (Auto) [place] % (Auto) Eos % (Auto) Baso % (Auto) Immature Gran # (Auto) Neut # (Auto) Lymph # (Auto) [place] # (Auto) Eos # (Auto) Baso # (Auto) Sodium 140 Potassium 4.1 D Chloride 103 Carbon Dioxide 31 Anion Gap 6.0 BUN 5 L Creatinine 0.47 L Est Cr Clr Drug Dosing 126.6 Est GFR ( Amer) 121.8 Est GFR (Non-Af Amer) 105.1 BUN/Creatinine Ratio 10.5 Glucose 128 H POC Glucose Calcium 8.8 Total Bilirubin 0.8 AST 11 L ALT 12 Alkaline Phosphatase 81 Total Protein 6.1 L Albumin 2.4 L Globulin 3.7 Albumin/Globulin Ratio 0.6 L Triglycerides Cholesterol LDL Cholesterol, Calc VLDL Cholesterol, Calc HDL Cholesterol Cholesterol/HDL Ratio Lipase 357 KUB: FINDINGS: 2 supine views the abdomen provided for interpretation. There is mild gaseous prominence of the transverse colon. There is scattered small bowel gas. There is a small amount of right colonic stool. There are surgical clips in the right upper quadrant consistent with a prior cholecystectomy. There are multiple nonspecific pelvic basin calcifications. IMPRESSION: Mild gaseous prominence of the transverse colon. No conventional radiographic evidence of a high-grade bowel obstruction. (1) Pancreatitis Acute pancreatitis complication: unspecified Chronicity: acute Pancreatitis type: unspecified pancreatitis type Qualified Code(s): K85.90 - Acute pancrea titis without necrosis or infection, unspecified
[2018-11-23] MEDS: cefTRIAXone SODIUM 2,000 MG in DEXTROSE 5% 50 ML IV SCH (11:53)
--- NOTE | 2018-11-23 14:55 | Hospitalist Progress Note ---
Date of Service November 23, 2018 Assessment & Plan (1) Pancreatitis: - Lipase level was >900 at admission, now improved to WNL. - CT A/P consistent with pancreatitis; most recent KUB was negative but pt. continues to have severe abd pain. - Pancreatitis may be medication induced (statin vs. ACEI). 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 - Advance to CLD; Decrease IV fluids to 100 cc/hr. - Holding home Suboxone; Morphine 4 mg IV q2hr prn pain -- has been using medication frequently. Unclear if she would benefit from resuming home Suboxone and d/c'ing Morphine. - Trend labs qAM. (2) Ileus: - Noted on KUB on 11/21/18; repeat KUB showed improvement. - Miralax BID with Senokot S BID scheduled. - May be contributing to abd pain -- advance diet very slowly. (3) UTI (urinary tract infection): - UC with Klebsiella. - Continue Ceftriaxone (pansensitive) (4) DM (diabetes mellitus): - Hgb A1C was 12.3 in Jan 2018; repeat A1C was 11.6. 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 - SSI and Lantus BID as inpt -- BG has been well controlled. (5) COPD (chronic obstructive pulmonary disease): - No evidence of acute exacerbation. - Current 1 PPD smoker -- nicotine patch. - Smoking cessation encouraged. (6) Allergic rhinitis: - Will monitor. (7) Chronic pain: - ?Neck pain per last PCP note in 2016. - Hold home Suboxone (on 11/24 1.5 film at home and follows with [facility] for treatment). Consider resuming medication as her current Morphine IV dose is well below Suboxone dosing and may be contributing to increased pain. - Gabapentin 300 mg QID. - Currently receiving Morphine 4 mg IV q2hr prn pain. (8) HTN (hypertension): - Holding home Lisinopril -- will d/c at discharge due to concern for medication related pancreatitis. - Likely started ACEI in setting of Type II DM. (9) ADHD: - Holding home Ritalin. (10) HLD (hyperlipidemia): - Holding home statin - will d/c at discharge due to concern for medication related pancreatitis. (11) DVT prophylaxis: - Lovenox q24hr. Dispo: Med/surg with tele for treatment of pancreatitis. Discharge pending improvement in pain control. Supervising Physician Co-Signing Physician Notes HALIE Supervision Note: I did not personally see or examine the patient today, but I verified all anand points of HALIE Bejarano's assessment and plan with the following exceptions/additions: None Subjective Patient continues to express that she is having abdominal pain. She admits that the pain is a 10/10 without morphine and is located primarily on the right side, but states the pain is also across her epigastric area as well as left upper quadrant. She states she is continuing to feel bloated, but states she was nauseous this morning before she was able to pass gas and have a bowel movement this morning which was formed and without blood. Denies chest pain or shortness of breath. Review of Systems Review of Systems: All systems reviewed & are unremarkable except as noted in HPI & below Constitutional: no fever, no chills, no fatigue, no weakness and no anorexia Respiratory: no cough, no dyspnea, no dyspnea on exertion and no wheezing Cardiovascular: no chest pain, no palpitations, no lightheadedness and no edema Gastrointestinal: + abdominal pain, + bloating, + nausea and + constipation; no vomiting Genitourinary: no difficulty urinating Musculoskeletal: no back pain and no joint pain Integumentary: no non-healing lesions Physical Exam Physical Exam: General: Resting comfortably HEENT: NC/AT; PERRLA with EOMI; Lynd conjunctiva, MMM. No erythema of posterior pharynx Neck: Supple and nontender Cardiac: RRR Lungs: CTA throughout Abdomen: Distention; Normoactive X 4; Tender to palp in upper abdomen. Extremities: Warm. No edema present Neuro: No focal weakness Skin: No rash Results & Data Vital Signs (Past 12 Hours) Vital Signs Temp Pulse Pulse Resp BP BP Pulse Ox 11/23/18 12:38 36.9 C 55 L 18 160/76 H 90 11/23/18 10:51 61 11/23/18 07:34 36.9 C 57 L 16 160/75 H 97 11/23/18 04:00 36.8 C 56 L 18 134/70 96 Laboratory Results 11/23/18 11/23/18 11/23/18 Range/Units 12:02 06:22 06:22 WBC 9.42 (4.8-10.8) K/uL RBC 4.81 (4.2-5.4) M/uL Hgb 13.6 (12.0-16.0) g/dL Hct 40.7 (37-47) % MCV 84.6 (80-100) fL MCH 28.3 (25-34) pg MCHC 33.4 (32-36) g/dL RDW Std Deviation 38.9 (36.4-46.3) fL RDW Coeff of Francisco 12.8 (11.5-14.5) % Plt Count 213 (130-400) K/uL MPV 10.6 H (7.4-10.4) fL Immature Gran % (Auto) 0.1 % Neut % (Auto) 59.3 % Lymph % (Auto) 33.2 % Hardee % (Auto) 6.1 % Eos % (Auto) 1.1 % Baso % (Auto) 0.2 % Immature Gran # (Auto) 0.01 (0.00-0.02) K/uL Neut # (Auto) 5.59 (1.4-6.5) K/uL Lymph # (Auto) 3.13 (1.2-3.4) K/uL Hardee # (Auto) 0.57 (0.11-0.59) K/uL Eos # (Auto) 0.10 (0-0.5) K/uL Baso # (Auto) 0.02 (0-0.2) K/uL Sodium 140 (136-145) mmol/L Potassium 4.1 D (3.5-5.1) mmol/L Chloride 103 (98-107) mmol/L Carbon Dioxide 31 (21-32) mmol/L Anion Gap 6.0 (3-11) BUN 5 L (7-18) mg/dl Creatinine 0.47 L (0.6-1.2) mg/dl Est Cr Clr Drug Dosing 126.6 ml/min Est GFR ( Amer) 121.8 Est GFR (Non-Af Amer) 105.1 BUN/Creatinine Ratio 10.5 (10-20) Glucose 128 H (70-99) mg/dl POC Glucose 121 H (70-99) Calcium 8.8 (8.5-10.1) mg/dl Total Bilirubin 0.8 (0.2-1) mg/dl AST 11 L (15-37) U/L ALT 12 (12-78) U/L Alkaline Phosphatase 81 (45-117) U/L Total Protein 6.1 L (6.4-8.2) gm/dl Albumin 2.4 L (3.4-5.0) gm/dl Globulin 3.7 (2.5-4.0) gm/dl Albumin/Globulin Ratio 0.6 L (0.9-2) Triglycerides (0-150) mg/dl Cholesterol (0-200) mg/dl LDL Cholesterol, Calc mg/dl VLDL Cholesterol, Calc mg/dl HDL Cholesterol mg/dl Cholesterol/HDL Ratio Lipase 357 (73-393) U/L 11/23/18 11/23/18 11/22/18 Range/Units 06:01 00:04 18:31 WBC (4.8-10.8) K/uL RBC (4.2-5.4) M/uL Hgb (12.0-16.0) g/dL Hct (37-47) % MCV (80-100) fL MCH (25-34) pg MCHC (32-36) g/dL RDW Std Deviation (36.4-46.3) fL RDW Coeff of Francisco (11.5-14.5) % Plt Count (130-400) K/uL MPV (7.4-10.4) fL Immature Gran % (Auto) % Neut % (Auto) % Lymph % (Auto) % Hardee % (Auto) % Eos % (Auto) % Baso % (Auto) % Immature Gran # (Auto) (0.00-0.02) K/uL Neut # (Auto) (1.4-6.5) K/uL Lymph # (Auto) (1.2-3.4) K/uL Hardee # (Auto) (0.11-0.59) K/uL Eos # (Auto) (0-0.5) K/uL Baso # (Auto) (0-0.2) K/uL Sodium (136-145) mmol/L Potassium (3.5-5.1) mmol/L Chloride (98-107) mmol/L Carbon Dioxide (21-32) mmol/L Anion Gap (3-11) BUN (7-18) mg/dl Creatinine (0.6-1.2) mg/dl Est Cr Clr Drug Dosing ml/min Est GFR ( Amer) Est GFR (Non-Af Amer) BUN/Creatinine Ratio (10-20) Glucose (70-99) mg/dl POC Glucose 123 H 135 H 152 H (70-99) Calcium (8.5-10.1) mg/dl Total Bilirubin (0.2-1) mg/dl AST (15-37) U/L ALT (12-78) U/L Alkaline Phosphatase (45-117) U/L Total Protein (6.4-8.2) gm/dl Albumin (3.4-5.0) gm/dl Globulin (2.5-4.0) gm/dl Albumin/Globulin Ratio (0.9-2) Triglycerides (0-150) mg/dl Cholesterol (0-200) mg/dl LDL Cholesterol, Calc mg/dl VLDL Cholesterol, Calc mg/dl HDL Cholesterol mg/dl Cholesterol/HDL Ratio Lipase (73-393) U/L 11/22/18 Range/Units 07:34 WBC (4.8-10.8) K/uL RBC (4.2-5.4) M/uL Hgb (12.0-16.0) g/dL Hct (37-47) % MCV (80-100) fL MCH (25-34) pg MCHC (32-36) g/dL RDW Std Deviation (36.4-46.3) fL RDW Coeff of Francisco (11.5-14.5) % Plt Count (130-400) K/uL MPV (7.4-10.4) fL Immature Gran % (Auto) % Neut % (Auto) % Lymph % (Auto) % Hardee % (Auto) % Eos % (Auto) % Baso % (Auto) % Immature Gran # (Auto) (0.00-0.02) K/uL Neut # (Auto) (1.4-6.5) K/uL Lymph # (Auto) (1.2-3.4) K/uL Hardee # (Auto) (0.11-0.59) K/uL Eos # (Auto) (0-0.5) K/uL Baso # (Auto) (0-0.2) K/uL Sodium (136-145) mmol/L Potassium (3.5-5.1) mmol/L Chloride (98-107) mmol/L Carbon Dioxide (21-32) mmol/L Anion Gap (3-11) BUN (7-18) mg/dl Creatinine (0.6-1.2) mg/dl Est Cr Clr Drug Dosing ml/min Est GFR ( Amer) Est GFR (Non-Af Amer) BUN/Creatinine Ratio (10-20) Glucose (70-99) mg/dl POC Glucose (70-99) Calcium (8.5-10.1) mg/dl Total Bilirubin (0.2-1) mg/dl AST (15-37) U/L ALT (12-78) U/L Alkaline Phosphatase (45-117) U/L Total Protein (6.4-8.2) gm/dl Albumin (3.4-5.0) gm/dl Globulin (2.5-4.0) gm/dl Albumin/Globulin Ratio (0.9-2) Triglycerides 116 (0-150) mg/dl Cholesterol 111 (0-200) mg/dl LDL Cholesterol, Calc 53 mg/dl VLDL Cholesterol, Calc 23 mg/dl HDL Cholesterol 35 mg/dl Cholesterol/HDL Ratio 3 Lipase (73-393) U/L PG Care Time/CCT Total # of Minutes Spent Total Time Spent with Patient: Total time spent is greater than 50% in coordination of care (as documented) at patient's floor/unit and/or counseling patient: (1) UTI (urinary tract infection) Hematuria presence: with hematuria Urinary tract infection type: site unspecified Qualified Code(s): N39.0 - Urinary tract infection, site not specified; R31.9 - Hematuria, unspecified (2) Pancreatitis Acute pancreatitis complication: unspecified Chronicity: acute Pancreatitis type: unspecified pancreatitis type Qualified Code(s): K85.90 - Acute pancreatitis without necrosis or infection, unspecified
[2018-11-23] MEDS: ENOXAPARIN INJ 40 MG/0.4 ML SYR SQ SCH (21:18)
[2018-11-24] MEDS: MoRPHine SULFATE 4 MG/ML 1 ML CARP\\VIAL IV PRN (04:23)
[2018-11-24 06:42] LABS: Hematocrit (blood only) 42.8 % (37-47); Mean Corpuscular Hgb Conc 32.7 g/dL (32-36); Mean Corpuscular Volume 84.6 fL (80-100); Mean Platelet Volume 10.7 fL (7.4-10.4); Platelet Count 220 K/uL (130-400); RDW Coefficient of Variation 12.9 % (11.5-14.5); RDW Standard Deviation 38.5 fL (36.4-46.3); Red Blood Count 5.06 M/uL (4.2-5.4); White Blood Count 7.94 K/uL (4.8-10.8)
[2018-11-24 07:17] LABS: Albumin Globulin Ratio 0.6 (0.9-2); Albumin Level 2.5 gm/dl (3.4-5.0); BUN Creatinine Ratio 8.2 (10-20); Bilirubin,Total 0.7 mg/dl (0.2-1); Calcium 8.7 mg/dl (8.5-10.1); Creatinine Clr Calc Pharmacy 125.8 ml/min; Est GFR (African American) 121.8; Est GFR (Non-African American) 105.1; Potassium 3.3 mmol/L (3.5-5.1); Total Protein 6.5 gm/dl (6.4-8.2)
[2018-11-24] MEDS ORDERED: POTASSIUM CHLORIDE 20 MEQ TABCR PO ONE (08:15)
--- NOTE | 2018-11-24 08:27 | Pain Management Consultation ---
Date of Consultation November 24, 2018 Assessment & Plan (1) Pancreatitis: Acute pancreatitis complication: unspecified Chronicity: acute Pancreatitis type: unspecified pancreatitis type Qualified Code(s): K85.90 - Acute pancreatitis without necrosis or infection, unspecified Present on Admission?: Yes (2) Chronic pain: Present on Admission?: Yes (3) Constipation: 1. Recommend discontinuation of IV morphine and transitioning back to Suboxone 8 mg 1.5 film daily. PDMP was reviewed which revealed consistent utilization of Suboxone 8 mg 1.[address] Muir. Patient should follow-up with Dr. Muir upon discharge. 2. Consider use of Relistor should there be no contraindication per GI service due to her persistent constipation Thank you for allowing us to participate in care of Mrs. Abreu. Present on Admission?: No History of Present Illness Reason for Consultation: Abdominal pain-pancreatitis Requesting Physician: Breann Doan MD Attending Physician: Breann Doan MD History of Present Illness Mrs. Abreu is a 62-year-old morbidly obese white female who was admitted with acute abdominal pain secondary to pancreatitis. The patient is reportedly a nondrinker who has recent history of dysuria with diagnosis of UTI in the outpatient setting immediately prior to admission. She developed epigastric discomfort with nausea and vomiting and was found to have pancreatitis upon admission. Patient has prior history of cholecystectomy as well as previous sphincterotomy with stent placed in pancreatic duct in 2018. Patient has had improvement in her abdominal pain upon his admission as she has been n.p.o. initially transition to clear liquids. The patient is on chronic Suboxone therapy in the outpatient setting 8 mg 1.5 films daily for reported history of chronic pain. She reports chronic axial neck pain and left lateral hip pain as well as neuropathy as her chronic pain complaints requiring chronic utilization of Suboxone. She has prior history of opioid utilization was transitioned to Suboxone approximate 1 year ago. She denies any prior surgery or interventional treatment of her chronic axial neck pain or left lateral hip pain complaints. She is followed by psychology medical with a Dr. العراقي in the outpatient setting. Her Suboxone was discontinued upon this admission and she was transitioned to IV morphine currently utilizing 4 mg every 2 hours with use of 20 mg over the past 24 hours. Patient indicates that she is no longer experien cing any sharp midepigastric abdominal pain but is more experiencing a generalized abdominal discomfort which she describes as a fullness and bloating as she has not had a bowel movement in the past 5-6 days. She reports some difficulties with constipation in the outpatient setting with her chronic Suboxone utilization but does utilize FiberCon daily and reports that she moves her bowels daily versus every other day. She denies any evidence of withdrawal type symptoms. She denies any significant complaints of axial neck pain or left lateral hip pain at this time. Patient has no further constitutional complaints at this time. Plan of care discussed with Dr. Alvarez. Pain Assessment Full Body Front + Back: 1. Generalized abdominal discomfort Pain scale - at its best (0-10): 5 Pain scale - at its worst (0-10): 8 Allergies Allergy/AdvReac Type Severity Reaction Status Date / Time No Known Allergies Allergy Verified 11/20/18 11:25 Home Medications Home Medications Medication Instructions Recorded Confirmed Type Lantus U-100 Insulin 20 unit SUBCUT QAM 01/31/18 11/20/18 History albuterol sulfate [Ventolin HFA] 2 puff INHALATION Q6H PRN 01/31/18 11/20/18 History gabapentin 300 mg PO QID 01/31/18 11/20/18 History metformin 1,000 mg PO BIDM 01/31/18 11/20/18 History atorvastatin 40 mg PO QAM 11/20/18 11/20/18 History buprenorphine-naloxone [Suboxone] 1.5 film SUBLINGUAL DAILY 11/20/18 11/20/18 History cetirizine 10 mg PO QAM 11/20/18 11/20/18 History lisinopril 5 mg PO QAM 11/20/18 11/20/18 History methylphenidate HCl 5 mg PO BIDM 11/20/18 11/20/18 History Pain History Pain Location Full Body Front + Back: 1. generalized abdominal pain Pain Intensity Pain scale - at its best (0-10): 5 Pain scale - at its worst (0-10): 8 Patient History Medical History Pancreatitis (Acute) UTI (urinary tract infection) (Acute) DM (diabetes mellitus) (Chronic) COPD (chronic obstructive pulmonary disease) (Chronic) UTI (urinary tract infection) (Acute) Leukocytosis Pyelonephritis (Acute) Pancreatitis, acute (Acute) Enteritis (Acute) RADHA (generalized anxiety disorder) (Chronic) PTSD (post-traumatic stress disorder) (Chronic) Surgical History No pertinent past surgical history Family History Other No pertinent family history Social History Preferred Language: Frisian Communication Ability: Effective Visual Impairment: No Limitations Hearing Ability: Normal Helpdesk Manager Required: No Beliefs That Will Affect Care: None marital status details: Current Living Situation: Significant Other Other Information That Helps Us Care for You: No Feels Safe at Home: Yes Safety Concerns: Feels Safe At This Time Smoking Status: Current every day smoker Tobacco Type: cigarettes ; Cigarettes Per Day: 20 ; Do You Dip or Chew Tobacco: No ; Second Hand Exposure: Yes ; Tobacco Cessation Education Requested by Patient: No Hx Alcohol Use: No Hx Substance Use: No Physical Exam Physical Exam: General: Patient lying quietly in exam room in no acute distress. Speech and thought process appropriate. Mood and affect appropriate. Cognition intact. Patient obese and physically deconditioned state. Head: Normocephalic and atraumatic. ENT: No evidence of nasal or oral mucosal lesions. Mucous membranes are moist. Eyes: Pupils equal round reactive to light. Neck: Supple without adenopathy and full range of motion. Abdomen: Soft. No organomegaly. No rebound or guarding. Generalized tenderness to palpation over the entire abdominal region. Lower extremities: No evidence of edema, erythema or skin breakdown. Sensation intact. Strength with dorsi and plantar flexion 5/5 and equal bilaterally. Neurologic: Cranial nerves grossly intact. Ambulatory function not witnessed. Results Diagnostic Review CT: non enhanced CT Findings: [place], [place] [phone] CT Scan Report Patient: WAQAS ABREU Date: 11/20/18 MR#: [id number]: [id number] Acct ID:[id number]: Date: 1955[facility] Zip: [place] [address] Age: 62Location: ED Sex: F Room/Bed: Att Phy: Diagnosis: PAIN IN RIGHT SIDE Alexandra Phy: Carolann Louis MDService Date: 11/20/18 Fam Phy: Interpreting Phy: Danis Posadas Admit Phy: Ordering Phy: Garret Wilson, DO cc: ~ ABDOMEN AND PELVIS CT WITH IV CONTRAST CT DOSE: 873.96 mGy.cm HISTORY: Acute right upper quadrant abdominal pain ruq/ flank pain TECHNIQUE: Multiaxial CT images of the abdomen and pelvis were performed following the use of intravenous contrast. A dose lowering technique was utilized adhering to the principles of ALARA. COMPARISON STUDY: CT abdomen and pelvis 01/31/2018, MRCP 02/01/2018. FINDINGS: Lung bases are generally clear. No pneumatosis or pneumoperitoneum. Imaged inferior cardiac chambers are unremarkable. Coronary arterial calcifications are noted. Ill-defined decreased attenuation of the left hepatic lobe adjacent to the falciform ligament suggests focal fatty infiltration. No intrahepatic biliary ductal dilation or hepatic mass lesion identified. Patency of the hepatic and portal veins. Cholecystectomy. Mild dilation of the common bile duct redemonstrated, likely on a postsurgical basis. Spleen and right adrenal gland are unremarkable. Mild thickening of the left adrenal gland. There is mild interstitial and peripancreatic inflammatory stranding about the uncinate process and pancreatic head. No pancreatic ductal dilation or peripancreatic fluid collection identified. Kidneys, and ureters appear unremarkable. There is moderate circumferential wall thickening of the urinary bladder with mucosal hyperemia and partial distention. Mild perivesicular stranding. Uterus and adnexa are unremarkable. Mixed plaque formation about the abdominal aorta without aneurysm. Prominent precaval lymph nodes are seen measuring up to 8 mm. There is mild nonspecific wall thickening about the distal esophagus. No bowel obstruction. Mild wall thickening about the duodenum. Multiple pleural fragments noted about the cecum. Surgically absent appendix. Soft tissues are unremarkable. Multilevel facet arthrosis with spondylitic spurring. Bones appear to be intact. IMPRESSION: 1. Findings compatible with mild acute uncomplicated pancreatitis. No acute peripancreatic fluid collection. 2. Mild wall thickening of the duodenum, likely reactive. 3. No bowel obstruction or pneumoperitoneum. 4. Cholecystectomy. 5. Urinary bladder wall thickening suspicious for cystitis. Correlate with urinalysis. 6. Additional findings as above. Electronically signed by: Chris Posadas M.D. 11/20/2018 11:37 AM Dictated: 11/20/18 1123 Transcribed: 11/20/18 1125 Radiology: reports reviewed Radiology Findings: [facility], [place] [phone] XRay Report Patient: WAQAS ABREU Date: 11/20/18 MR#: [id number]: [id number] Acct ID:[id number]: Date: 1955[facility] Zip: [place] [address] Age: 62Location: 2N Sex: F Room/Bed: [facility] Att Phy: Breann Doan, MDDiagnosis: ACUTE PANCREATITIS Alexandra Phy: Carolann Louis MDService Date: 11/23/18 Fam Phy: Interpreting Phy: Waylon Vizcarra MD Admit Phy: Shadi Mojica MD Ordering Phy: Amber Cuevas PA-C cc: ~ XR KUB/Abdomen 1 view CLINICAL HISTORY: Abd pain COMPARISON STUDY: 11/21/2018 FINDINGS: 2 supine views the abdomen provided for interpretation. There is mild gaseous prominence of the transverse colon. There is scattered small bowel gas. There is a small amount of right colonic stool. There are surgical clips in the right upper quadrant consistent with a prior cholecystectomy. There are multiple nonspecific pelvic basin calcifications. IMPRESSION: Mild gaseous prominence of the transverse colon. No conventional radiographic evidence of a high-grade bowel obstruction. Electronically signed by: Waylon Vizcarra M.D. 11/23/2018 10:16 AM Dictated: 11/23/18 1015 Transcribed: 11/23/18 1015
[2018-11-24] MEDS: INSULIN ASPART 100 UNITS/ML 3 ML PEN SC SCH ×3 (08:30→17:13)
[2018-11-24] MEDS: INSULIN GLARGINE SOLOSTAR 100 UNITS/ML 3 ML PEN SQ SCH (08:31)
[2018-11-24] MEDS: FAMOTIDINE 20 MG in SYRINGE 3 ML IV SCH (08:32)
[2018-11-24] MEDS: NICOTINE 21 MG/24 HR TDSY TD SCH (08:32)
[2018-11-24] MEDS: POLYETHYLENE (MIRALAX) 17 GM PACK PO SCH (08:33)
[2018-11-24] MEDS: GABAPENTIN 300 MG CAP PO SCH ×3 (08:33→17:15)
[2018-11-24] MEDS: DOCUSATE SODIUM/SENNA 50/8.6MG TAB PO SCH (08:33)
[2018-11-24] MEDS ORDERED: CIPROFLOXACIN 500 MG TAB PO SCH (09:30)
[2018-11-24] MEDS ORDERED: METHYLNALTREXONE BROMIDE 12 MG/0.6 ML VIAL SQ SCH (09:45)
[2018-11-24] MEDS ORDERED: CIPROFLOXACIN 250 MG TAB PO SCH (09:45)
[2018-11-24] MEDS ORDERED: BUPRENORPHINE/NALOXONE 8/2 MG TAB SL SCH (10:30)
[2018-11-24] MEDS ORDERED: LACTULOSE SYRUP 30 GM/45 ML UDP PO STA (14:50)
[2018-11-24] MEDS ORDERED: ACETAMINOPHEN 500 MG TAB PO PRN (15:31)
[2018-11-24] MEDS ORDERED: LAVAGE SOLUTION 4000ML PO SCH (16:00)
--- NOTE | 2018-11-24 17:05 | Hospitalist Progress Note ---
Date of Service November 24, 2018 Assessment & Plan (1) Pancreatitis: - Lipase level was >900 at admission, now within normal limits. - CT A/P consistent with pancreatitis; most recent KUB was negative -- abd pain is now improved with exception of constipation. - Pancreatitis may be medication induced (statin vs. ACEI) - will d/c meds at discharge. 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 - FLD - advance to regular diet once pt. has a BM. - Resumed home Suboxone this morning, d/c'ed Morphine; Tylenol 1 gm q8hr prn. (2) Ileus: - Most recent KUB this morning showed mild gaseous distention of transverse colon. Pt. has not had a BM yet. - Received Relistor dose today along with Miralax, Lactulose and MOM enema with no improvement. - Will start Golytely 8 oz q4hr until she has a BM. - Constipation is likely contributing to abd pain; discharge pending resolution. (3) UTI (urinary tract infection): - UC with Klebsiella. - Converted Ceftriaxone to Cipro PO BID. (4) DM (diabetes mellitus): - Hgb A1C was 12.3 in Jan 2018; repeat A1C was 11.6. - informatics educator consulted, appreciate input. - SSI and Lantus BID as inpt -- BG has been well controlled. (5) COPD (chronic obstructive pulmonary disease): - No evidence of acute exacerbation. - Current 1 PPD smoker -- nicotine patch. - Smoking cessation encouraged. (6) Allergic rhinitis: - Will monitor. (7) Chronic pain: - ?Neck pain per last PCP note in 2017. - Will resume home Suboxone (on 11/24 1.5 film at home and follows with [facility] for treatment) and d/c Morphine IV. - Gabapentin 300 mg QID. (8) HTN (hypertension): - Holding home Lisinopril -- d/c at discharge due to concern for medication related pancreatitis. - Likely started ACEI as outpt in setting of Type II DM. (9) ADHD: - Holding home Ritalin. (10) HLD (hyperlipidemia): - Holding home statin - d/c at discharge due to concern for medication related pancreatitis. (11) Electrolyte abnormality: - K level 3.3 -- ordered K 40 mEq PO. (12) DVT prophylaxis: - Lovenox q24hr. Dispo: Med/surg with tele for treatment of pancreatitis. Discharge pending improvement in constipation. Supervising Physician Co-Signing Physician Notes HALIE Supervision Note: I personally saw and examined the patient. I verified all anand points and agree with HALIE Bejarano with the following exceptions and/or additions: Please see discharge summary on same DOS Subjective Pt. has not had a BM yet -- is passing gas. Received Relistor this morning along with Miralax, MOM enema and Lactulose this afternoon. Will continue to monitor. Abd pain is improved -- d/c'ed Morphine and restarted Suboxone today. Denies N/V. Is tolerating PO intake -- will advance to regular diet after pt. has a BM. Review of Systems Review of Systems: All systems reviewed & are unremarkable except as noted in HPI & below Constitutional: no fever, no chills, no fatigue, no weakness and no anorexia Respiratory: no cough, no dyspnea, no dyspnea on exertion and no wheezing Cardiovascular: no chest pain, no palpitations and no edema Gastrointestinal: + constipation; no abdominal pain, no nausea and no vomiting Genitourinary: no difficulty urinating Musculoskeletal: no back pain and no joint pain Integumentary: no non-healing lesions Physical Exam Physical Exam: General: Resting comfortably HEENT: NC/AT; PERRLA with EOMI; [place] conjunctiva, MMM. No erythema of posterior pharynx Neck: Supple and nontender Cardiac: RRR Lungs: CTA bilaterally Abdomen: Moderate distention; Bowel normoactive X 4; Nontender to palpation Extremities: Warm. No edema present Neuro: No focal weakness Skin: No rash Results & Data Vital Signs (Past 12 Hours) Vital Signs Temp Pulse Pulse Resp BP BP Pulse Ox 11/24/18 15:18 36.5 C 63 16 151/78 H 96 11/24/18 11:33 36.5 C 73 20 149/64 H 96 11/24/18 07:33 36.9 C 64 18 150/74 H 92 11/24/18 07:28 61 Laboratory Results 11/24/18 11/24/18 11/24/18 Range/Units 16:20 11:36 07:45 WBC (4.8-10.8) K/uL RBC (4.2-5.4) M/uL Hgb (12.0-16.0) g/dL Hct (37-47) % MCV (80-100) fL MCH (25-34) pg MCHC (32-36) g/dL RDW Std Deviation (36.4-46.3) fL RDW Coeff of Francisco (11.5-14.5) % Plt Count (130-400) K/uL MPV (7.4-10.4) fL Sodium (136-145) mmol/L Potassium (3.5-5.1) mmol/L Chloride (98-107) mmol/L Carbon Dioxide (21-32) mmol/L Anion Gap (3-11) BUN (7-18) mg/dl Creatinine (0.6-1.2) mg/dl Est Cr Clr Drug Dosing ml/min Est GFR ( Amer) Est GFR (Non-Af Amer) BUN/Creatinine Ratio (10-20) Glucose (70-99) mg/dl POC Glucose 242 H 246 H 161 H (70-99) Calcium (8.5-10.1) mg/dl Total Bilirubin (0.2-1) mg/dl AST (15-37) U/L ALT (12-78) U/L Alkaline Phosphatase (45-117) U/L Total Protein (6.4-8.2) gm/dl Albumin (3.4-5.0) gm/dl Globulin (2.5-4.0) gm/dl Albumin/Globulin Ratio (0.9-2) Lipase (73-393) U/L 11/24/18 11/24/18 11/23/18 Range/Units 06:30 06:30 20:45 WBC 7.94 (4.8-10.8) K/uL RBC 5.06 (4.2-5.4) M/uL Hgb 14.0 (12.0-16.0) g/dL Hct 42.8 (37-47) % MCV 84.6 (80-100) fL MCH 27.7 (25-34) pg MCHC 32.7 (32-36) g/dL RDW Std Deviation 38.5 (36.4-46.3) fL RDW Coeff of Francisco 12.9 (11.5-14.5) % Plt Count 220 (130-400) K/uL MPV 10.7 H (7.4-10.4) fL Sodium 141 (136-145) mmol/L Potassium 3.3 L D (3.5-5.1) mmol/L Chloride 102 (98-107) mmol/L Carbon Dioxide 32 (21-32) mmol/L Anion Gap 7.0 (3-11) BUN 4 L (7-18) mg/dl Creatinine 0.47 L (0.6-1.2) mg/dl Est Cr Clr Drug Dosing 125.8 ml/min Est GFR ( Amer) 121.8 Est GFR (Non-Af Amer) 105.1 BUN/Creatinine Ratio 8.2 L (10-20) Glucose 150 H (70-99) mg/dl POC Glucose 183 H (70-99) Calcium 8.7 (8.5-10.1) mg/dl Total Bilirubin 0.7 (0.2-1) mg/dl AST 10 L (15-37) U/L ALT 13 (12-78) U/L Alkaline Phosphatase 85 (45-117) U/L Total Protein 6.5 (6.4-8.2) gm/dl Albumin 2.5 L (3.4-5.0) gm/dl Globulin 4.0 (2.5-4.0) gm/dl Albumin/Globulin Ratio 0.6 L (0.9-2) Lipase 345 (73-393) U/L PG Care Time/CCT Total # of Minutes Spent Total Time Spent with Patient: Total time spent is greater than 50% in coordination of care (as documented) at patient's floor/unit and/or counseling patient: (1) UTI (urinary tract infection) Hematuria presence: with hematuria Urinary tract infection type: site unspecified Qualified Code(s): N39.0 - Urinary tract infection, site not specified; R31.9 - Hematuria, unspecified (2) Pancreatitis Acute pancreatitis complication: unspecified Chronicity: acute Pancreatitis type: unspecified pancreatitis type Qualified Code(s): K85.90 - Acute pancreatitis without necrosis or infection, unspecified
--- NOTE | 2018-11-24 17:51 | Discharge Summary ---
Date of Service November 24, 2018 Admission HPI Per Admitting Provider 62-year-old female who is a nondrinker who has had dysuria for several days then developed epigastric discomfort with nausea and vomiting. She does not drink alcohol. She presented to the ED for evaluation. She has evidence of pancreatitis with elevated lipase and abnormal CT scan. She has had a previous cholecystectomy. She does have evidence of UTI. White count is 14,800. Glucose 333. EKG reveals normal sinus rhythm. She denies hematemesis or coffee-ground emesis. No diarrhea. She has been given intravenous fluids and started on Rocephin in the ED. Admission Exam Per Admitting Provider General-alert and oriented x3, no fevers, no chills HEENT-head atraumatic and normocephalic, TMs intact bilaterally, pupils equal and reactive to light, extraocular muscles intact Neck-no lymphadenopathy or thyromegaly, trachea midline Chest-clear to auscultation percussion. No rales wheezing or rhonchi Cardiac-regular rate and rhythm, normal S1 and S2, no murmurs Abdomen-mildly distended. Bowel sounds present but hypoactive. Epigastric tenderness. No rebound or guarding Extremities-no cyanosis, clubbing, or edema Neuro-cranial nerves II through XII intact, motor and sensory function within normal limits, strength symmetrical 5/5, no focal deficits Psych-normal affect, normal mood Principal Diagnosis Pancreatitis Discharge Exam General: Resting comfortably HEENT: NC/AT; PERRLA with EOMI; [place] conjunctiva, MMM. No erythema of posterior pharynx Neck: Supple and nontender Cardiac: RRR Lungs: CTA bilaterally Abdomen: Bowel normoactive X 4; Nontender to palpation Extremities: Warm. No edema present Neuro: No focal weakness Skin: No rash Discharge Data Allergies Allergy/AdvReac Type Severity Reaction Status Date / Time No Known Allergies Allergy Verified 11/20/18 11:25 Consultations 11/20/18 12:59 ED Decision to Admit Stat 11/21/18 17:23 Consult Gastroenterology Routine 11/24/18 09:07 Consult Pain Management Routine Ordered Studies 11/20/18 10:04 CT abd pelvis IV con only Stat KUB 11/21 and 11/23 Hospital Course (1) Pancreatitis: Lipase level was >900 at admission, now within normal limits. CT A/P consistent with pancreatitis; most recent KUB was negative -- abd pain is now improved with exception of constipation. Pancreatitis may be medication induced (statin vs. ACEI) - d/c meds at discharge. 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 FLD - advance to regular diet at home as pt. is having BMs. Resumed home Suboxone this morning, d/c'ed Morphine; Tylenol 1 gm q8hr prn. (2) Ileus: Most recent KUB this morning showed mild gaseous distention of transverse colon. Pt. did not have a BM after Miralax, Relistor and Lactulose; received Golytely and had large BM this evening. Constipation was likely contributing to abd pain; stable for discharge following BM this evening. Recommend to continue bowel regimen at home. (3) UTI (urinary tract infection): UC with Klebsiella. Converted Ceftriaxone to Cipro PO BID. Completed 3 day course of abx. (4) DM (diabetes mellitus): Hgb A1C was 12.3 in Jan 2018; repeat A1C was 11.6. senior android developer consulted, appreciate input. SSI and Lantus BID as inpt -- BG has been well controlled. F/u with PCP to discuss diabetic management. (5) COPD (chronic obstructive pulmonary disease): No evidence of acute exacerbation. Current 1 PPD smoker -- nicotine patch. Smoking cessation encouraged. (6) Allergic rhinitis: No treatment. (7) Chronic pain: ?Neck pain per last PCP note in 2016. Resumed home Suboxone (on 11/24 1.5 film at home and follows with [facility] for treatment) on 11/24/18. Gabapentin 300 mg QID. (8) HTN (hypertension): Held home Lisinopril -- d/c at discharge due to concern for medication related pancreatitis. Likely started ACEI as outpt in setting of Type II DM. (9) ADHD: Held home Ritalin, can resume at discharge. (10) HLD (hyperlipidemia): Held home statin - d/c at discharge due to concern for medication related pancreatitis. (11) Electrolyte abnormality: Replaced as needed. (12) DVT prophylaxis: Lovenox q24hr. Stable for discharge on 11/24/18. Total Time Total Time Spent Total Time Spent (In Minutes): >30 minutes Total Time Includes: Examination of the Patient, Discharge Planning, Medication Reconciliation, Communication With Other Providers and Other Discharge Plan Discharge Items Patient Disposition: Home - Self-Care Reason For Visit: ACUTE PANCREATITIS Discharge Diagnosis: Acute Pancreatitis Condition: Fair Discharge Goals: Decrease discomfort, Improve function, Increase independence and Improve nutritional status Activity: As commented below Exercise/Sports: Gradually increase as tolerated Non-emergency contact: Primary Care Provider and Director [employer] Call non-emergency contact if: you have any medication questions, your symptoms worsen, your pain is not controlled, your pain is worsening, your pain is unusual for you, your pain is concerning for you and you have a fever Follow-up/Referrals: Carolann Louis MD [Primary Care Provider] - 11/28/18 11:00 am (Please, follow up with Dr. Louis on TuesdayNovember 28 at 11:00 am. *If you need to change this appointment, call the office at [phone].) Diet: Carb Consistent or DM2 and Low Fat Addtl Provider Instructions: 1. Acute Pancreatitis * Symptoms are now resolved; Lipase level is trending down. * Please discontinue Lisinopril and Atorvastatin; these medications may be contributing to pancreatitis. You will need to discuss resuming these medications with your primary care provider. * Please continue a low fat, low carb diet as tolerated * Continue home Suboxone as prescribed for chronic pain. * You will need to follow up with GI as an outpatient for EUS procedure. * Please schedule an appt with your PCP in 7-10 days. 2. Diabetes Mellitus, Type II * Please resume home Metformin and Lantus 20 units daily as prescribed. * Monitor blood glucose levels with meals and at bedtime; record all readings. * Please follow up with your primary care provider to discuss diabetic management. 3. Hypertension * Please discontinue Lisinopril; you will need to discuss starting another blood pressure agent with your primary care provider. 4. Constipation * Likely related to Suboxone use. * Please continue a bowel regimen at home: Miralax twice daily scheduled. 5. Please follow up with your primary care provider in 7-10 days. Prescriptions: New sennosides-docusate sodium [Senokot-S] 8.6-50 mg Tablet 1 tab PO BID Qty: 1 RF: 0 Continued Lantus U-100 Insulin 100 unit/mL Solution 20 unit SUBCUT QAM RF: 0 metformin 1,000 mg Tablet 1,000 mg PO BIDM RF: 0 gabapentin 300 mg Capsule 300 mg PO QID RF: 0 albuterol sulfate [Ventolin HFA] 90 mcg/actuation Hfa Aerosol Inhaler 2 puff INHALATION Q6H PRN (Reason: Shortness Of Breath Or Wheezing) RF: 0 cetirizine 10 mg tablet 10 mg PO QAM RF: 0 methylphenidate HCl 5 mg tablet 5 mg PO BIDM RF: 0 buprenorphine-naloxone [Suboxone] 8-2 mg film 1.5 film sublingual DAILY RF: 0 Discontinued atorvastatin 40 mg tablet 40 mg PO QAM RF: 0 lisinopril 5 mg tablet 5 mg PO QAM RF: 0 Stand-Alone Forms: [facility] Discharge Orders: Discharge Order (Routine); Ordered 11/24/18 Ordered By: Breann Doan Admission Data Admit Date/Time: 11/20/18 13:17 Attending Provider: Breann Doan Admit Provider: Shadi Mojica Primary Care Provider: Carolann Louis Other Providers: Shadi Mojica ; Ailyn Dubois ; Wily Alvarez Service: Telemetry Medical Other Interventions: Discharge Summary Assessment (RN) Last Done: 11/24/18 19:28 Pending Studies at Discharge: No DC Date/Time DO NOT enter until pt leaves facility: 11/24/18 20:24 Supervising Physician Co-Signing Physician Notes PA Supervision Note: I personally saw and examined the patient. I verified all anand points and agree with HALIE Bejarano with the following exceptions and/or additions: Pt much improved, abd pain is resolved, moving bowels, ileus resolved VSS RRR no mgr CTAB no wcr Abd +BS soft NT ND Ext no calf edema or calf tenderness Stable for dc to home
[2018-11-24] MEDS ORDERED: FAMOTIDINE 20 MG TAB PO SCH (21:00)
== END 2018-11-24 20:24 | disposition home or self-care (01) | DRG 439 ==
LOC: ED 09:43 → SUATTDRO 13:17 → 2N 13:17
DX: I10 Essential (primary) hypertension; K85.30 Drug induced acute pancreatitis without necrosis or infection; F41.1 Generalized anxiety disorder; N39.0 Urinary tract infection, site not specified; T46.5X5A Adverse effect of other antihypertensive drugs, initial encounter; J44.9 Chronic obstructive pulmonary disease, unspecified; R10.9 Unspecified abdominal pain; F43.10 Post-traumatic stress disorder, unspecified; Z79.4 Long term (current) use of insulin; E11.65 Type 2 diabetes mellitus with hyperglycemia; F90.9 Attention-deficit hyperactivity disorder, unspecified type; F17.210 Nicotine dependence, cigarettes, uncomplicated; B96.1 Klebsiella pneumoniae [K. pneumoniae] as the cause of diseases classified elsewhere; F32.9 Major depressive disorder, single episode, unspecified; Y92.009 Unspecified place in unspecified non-institutional (private) residence as the place of occurrence of the external cause; K56.7 Ileus, unspecified

== ENCOUNTER 2020-11-29 15:32 | Observation (INO) ==
[2020-11-29] MEDS ORDERED: ALBUT/IPRATROP 3MG/0.5MG NEB 3 ML VIAL INH STA (15:43)
[2020-11-29] MEDS ORDERED: dexAMETHasone**PF** 10 MG/ML VIAL IV ONE (15:43)
[2020-11-29] MEDS ORDERED: SODIUM CHLORIDE 0.9% 1000ML 1,000 ML IV SCH (15:45)
[2020-11-29] MEDS ORDERED: KETOROLAC TROMETHAMINE 15 MG/ML VIAL IV ONE (15:51)
--- NOTE | 2020-11-29 15:56 | Emergency Department Note ---
Impression & Plan Acute exacerbation of chronic obstructive pulmonary disease (COPD), Breathlessness, Fatigue ED Provider Note Provider: Dev Rogers MD DATE OF SERVICE: 11/29/2020 CHIEF COMPLAINT: Short of breath, myalgias, chills, upper back pain HISTORY OF PRESENT ILLNESS: Patient is a 64-year-old female history of hypertension, COPD, pancreatitis, diabetes presenting here today complaining of over the past week developing shortness of breath with some slight cough with myalgias chills and upper back pain. States occasionally she might feel nauseous but denies significant abdominal pain. Denies chest pain but has pain in the upper posterior back. Denies any falls or trauma. Endorses some myalg ias and headache at time. States she was seen a week ago at [facility] and had a negative Covid test. They told her she had a lung nodule and sent her home. Denies other sick contacts. Patient has not had Covid or the Covid vaccine. Patient states her nebulizer broke at home several days ago though she is not been able to use this. Patient states she is smoking less than normal due to her illness. Denies significant leg swelling or recent travel. Patient does endorse some rhinorrhea REVIEW OF SYSTEMS: A total of 10 review of systems was obtained and negative except as stated above in the HPI. PAST MEDICAL HISTORY: As noted above MEDICATIONS: Reviewed home medication list SOCIAL HISTORY: Lives at home with boyfriend who is well, smoker PHYSICAL EXAM: GENERAL: alert and oriented in no acute distress on stretcher appears fatigued Head: normocephalic and atraumatic EYES: No injection, discharge or icterus. NECK: Trachea midline. Supple. ENT: Mucous membranes pink and moist. Some rhinorrhea noted. LUNGS: Airway patent. No retractions. Breath sounds with diffuse wheeze. Mildly tachypneic HEART: Regular rate and rhythm. No chest wall tenderness ABDOMEN: Soft and non-tender, without guarding or rebound. SKIN: Acyanotic, warm, dry, without rashes EXTREMITIES: Without swelling, tenderness or deformity NEUROLOGICAL: No focal deficits. No aphasia. No facial droop or slurred speech. EK bpm sinus rhythm first-degree AV block. QTc 454. No acute ST segment elevation or depression. Compared to previous from November 142019 similar with some lead placement variation. CONTINUOUS CARDIAC MONITORING: was ordered and showed a heart rate of bpm in Patient's laboratory studies and imaging reviewed. Differential includes Infection, dehydration, metabolic abnormality, hypo/hyperglycemia, electrolyte disturbance, anemia, hypoxia, cardiac sources, intracerebral event, toxicologic, neurologic, as well as other pathologies. IMPRESSION/MEDICAL DECISION MAKING: Patient presents complaining of worsening shortness of breath and myalgias and some upper back pain. Was evidently evaluated at [facility] last week. Patient not significant hypoxic with diffuse wheeze. States her nebulizers failed and has a history of COPD and is a smoker. Given nebulizer here. Repeat Covid test completed to exclude issues not vaccinated. Concern for possible pneumonia does exist versus bronchitis/COPD exacerbation. PE was entertained as a cause although sounds a bit more infectious and a CT of the chest will be completed to exclude. Given empiric dose of IV steroids here with concern for underlying COPD flare and a bit of IV fluids. Given some Toradol for upper back pain. Benign abdomen otherwise I doubt acute intra-abdominal pathology. Blood work with white blood count of 10 but no anemia. No thrombocytopenia noted. No evidence of renal dysfunction or severe electrolyte abnormality. LFTs not abnormal. Lipase not elevated. Troponin not elevated. Mild lactate elevation given IV fluids here. CT of the chest per radiology without evidence of acute PE or lobar pneumonia. Patient aware of pulmonary nodules with diffuse changes consistent with bronchitis. Patient given a dose of doxycycline here. On reassessment after DuoNeb treatment patient still appears somewhat fatigued and short of breath with wheeze. Patient states her back pain has improved however. Discussed with her further care here at the hospital special light of her broken nebulizer at home and fatigue with COPD exacerbation. She was in agreement this plan. Hospitalist contacted. DIAGNOSIS: COPD exacerbation, bronchitis, shortness of breath DISPOSITION: Hospitalist will evaluate Patient was agreeable with this plan. Past Med/Surg History Medical History (Updated 11/29/20 @ 17:54 by Dev Rogers M.D.) COPD (chronic obstructive pulmonary disease) DM (diabetes mellitus) Enteritis RADHA (generalized anxiety disorder) Leukocytosis Pancreatitis Pancreatitis, acute PTSD (post-traumatic stress disorder) Pyelonephritis UTI (urinary tract infection) UTI (urinary tract infection) Surgical History No pertinent past surgical history Family History Other No pertinent family history Social History Smoking Status: Current every day smoker Tobacco Type: Cigarettes Cigarettes Per Day: 20; Second Hand Exposure: Yes; Hx Alcohol Use: No Hx Substance Use: No Preferred Language: Tajik Communication Ability: Effective Visual Impairment: No Limitations Hearing Ability: Normal Sock Boarder Required: No Beliefs That Will Affect Care: None marital status details: Current Living Situation: Significant Other Feels Safe at Home: Yes Assistive Devices: None Allergies Allergies Allergy/AdvReac Type Severity Reaction Status Date / Time No Known Allergies Allergy Verified 11/29/20 18:17 Home Meds Home Medications Medication Instructions Recorded Confirmed insulin glargine 100 unit/mL 20 unit SUBCUT QAM 01/31/18 11/29/20 subcutaneous solution (Lantus U-100 Insulin) metformin 1,000 mg tablet 1,000 mg PO BIDM 01/31/18 11/29/20 doxepin 50 mg capsule 100 mg PO HS 11/15/19 11/29/20 gabapentin 300 mg capsule 300 mg PO TID 11/15/19 11/29/20 (Neurontin) hydroxyzine pamoate 25 mg capsule 25 mg PO TID PRN 11/15/19 11/29/20 (Vistaril) prazosin 1 mg capsule (Minipress) 1 mg PO DAILY 11/15/19 11/29/20 venlafaxine 37.5 mg 37.5 mg PO DAILY 11/15/19 11/29/20 capsule,extended release 24 hr (Effexor XR) buprenorphine 8 mg-naloxone 2 mg 1.5 film SUBLINGUAL DAILY 11/29/20 11/29/20 sublingual film Results & Data (ED) Vital Signs Vital Signs - 24 hr 11/29/20 15:38 11/29/20 15:44 11/29/20 15:47 Temperature 36 C L Temperature Source Temporal Artery Scan Pulse Rate 77 77 Pulse Rate [Apical] Pulse Rhythm Pulse Rhythm [Apical] Pulse Strength [Apical] Respiratory Rate 26 H 16 Respiratory Effort / Characteristics Respiratory Depth Respiratory Pattern Blood Pressure 170/77 H Blood Pressure [Right Arm] 156/83 H Blood Pressure Mean 108 Blood Pressure Mean [Right Arm] 107 Blood Pressure Position [Right Arm] Pulse Oximetry 99 96 Oxygen Delivery Method Room Air Room Air Oxygen Flow Rate Sepsis Recent Fever Within 48 Hours No Sepsis New/Unexplained Change in Mental Status No Sepsis Action Taken by Nursing No Action Required 11/29/20 16:33 11/29/20 16:52 11/29/20 16:58 Temperature Temperature Source Pulse Rate Pulse Rate [Apical] 77 77 Pulse Rhythm Pulse Rhythm [Apical] Regular Pulse Strength [Apical] Normal Respiratory Rate 16 18 Respiratory Effort / Characteristics Non-Labored Spontaneous Short of Breath Non-Labored Spontaneous Non-Labored Spontaneous Respiratory Depth Normal Normal Respiratory Pattern Regular Regular Blood Pressure Blood Pressure [Right Arm] 170/77 H Blood Pressure Mean Blood Pressure Mean [Right Arm] 108 Blood Pressure Position [Right Arm] Semi-fowlers Pulse Oximetry 97 96 99 Oxygen Delivery Method Room Air Room Air Room Air Oxygen Flow Rate 0 0 Sepsis Recent Fever Within 48 Hours Sepsis New/Unexplained Change in Mental Status Sepsis Action Taken by Nursing 11/29/20 17:41 11/29/20 17:47 Temperature Temperature Source Pulse Rate 91 H Pulse Rate [Apical] 91 H Pulse Rhythm Regular Pulse Rhythm [Apical] Regular Pulse Strength [Apical] Normal Respiratory Rate 17 18 Respiratory Effort / Characteristics Non-Labored Spontaneous Respiratory Depth Normal Respiratory Pattern Regular Blood Pressure Blood Pressure [Right Arm] 185/88 H Blood Pressure Mean Blood Pressure Mean [Right Arm] 120 Blood Pressure Position [Right Arm] Semi-fowlers Pulse Oximetry 100 100 Oxygen Delivery Method Nebulizer Nebulizer Oxygen Flow Rate 7 7 Sepsis Recent Fever Within 48 Hours Sepsis New/Unexplained Change in Mental Status Sepsis Action Taken by Nursing Laboratory Data Result diagrams: 11/29/20 16:11 11/29/20 16:11 Lab Results 11/29/20 11/29/20 11/29/20 Range/Units 16:11 16:11 16:11 WBC 10.01 (4.8-10.8) K/uL RBC 5.00 (4.2-5.4) M/uL Hgb 14.3 (12.0-16.0) g/dL POC Hgb (12.0-16.0) g/dl Hct 42.5 (37-47) % POC Hct (37-47) % MCV 85.0 (80-100) fL MCH 28.6 (25-34) pg MCHC 33.6 (32-36) g/dL RDW Std Deviation 44.8 (36.4-46.3) fL RDW Coeff of Francisco 14.3 (11.5-14.5) % Plt Count 320 (130-400) K/uL MPV 11.3 H (7.4-10.4) fL Immature Gran % (Auto) 0.3 % Neut % (Auto) 60.9 % Lymph % (Auto) 31.3 % [place] % (Auto) 5.2 % Eos % (Auto) 1.8 % Baso % (Auto) 0.5 % Neut # (Auto) 6.10 (1.4-6.5) K/uL Lymph # (Auto) 3.13 (1.2-3.4) K/uL [place] # (Auto) 0.52 (0.11-0.59) K/uL Eos # (Auto) 0.18 (0-0.5) K/uL Baso # (Auto) 0.05 (0-0.2) K/uL Immature Gran # (Auto) 0.03 H (0.00-0.02) K/uL PT 9.6 (9.0-12.0) Seconds INR 0.9 (0.9-1.1) POC Sodium (135-144) mmol/L Sodium 137 (136-145) mmol/L POC Potassium (3.3-5.0) mmol/L Potassium 4.0 (3.5-5.1) mmol/L POC Chloride (101-112) mmol/L Chloride 106 (98-107) mmol/L Carbon Dioxide 25 (21-32) mmol/L POC Total CO2 (24-31) mmol/L Anion Gap 6.0 (3-11) POC Anion Gap (16-25) mmol/L POC BUN (7-18) mg/dl BUN 10 (7-18) mg/dl Creatinine 0.52 L (0.6-1.2) mg/dl POC Creatinine (0.6-1.3) mg/dl Est Cr Clr Drug Dosing 108.4 ml/min Est GFR ( Amer) 116.2 ml/min Est GFR (Non-Af Amer) 100.3 ml/min BUN/Creatinine Ratio 19.3 (10-20) Glucose 180 H (70-99) mg/dl POC Glucose (other) (70-99) mg/dl Lactate (0.4-2.0) mmol/L Calcium 8.5 (8.5-10.1) mg/dl POC Ioniz Calcium Misa (1.12-1.32) mmol/l Magnesium 1.9 (1.8-2.4) mg/dl Total Bilirubin 0.6 (0.2-1) mg/dl AST 14 L (15-37) U/L ALT 22 (12-78) U/L Alkaline Phosphatase 94 (45-117) U/L Troponin I < 0.015 (0-0.045) ng/ml Total Protein 6.8 (6.4-8.2) gm/dl Albumin 3.2 L (3.4-5.0) gm/dl Globulin 3.6 (2.5-4.0) gm/dl Albumin/Globulin Ratio 0.9 (0.9-2) Lipase 84 (73-393) U/L Urine Color Urine Appearance (Clear) Urine pH (4.5-7.5) Ur Specific Felicity (1.000-1.030) Urine Protein (Negative) Urine Glucose (UA) (Negative) Urine Ketones (Negative) Urine Blood (Negative) Urine Nitrite (Negative) Urine Bilirubin (Negative) Urine Urobilinogen (Negative) Ur Leukocyte Esterase (Negative) COVID-19 Eval Order SARS-CoV-2 (PCR) (Negative) 11/29/20 11/29/20 11/29/20 Range/Units 16:11 16:13 16:13 WBC (4.8-10.8) K/uL RBC (4.2-5.4) M/uL Hgb (12.0-16.0) g/dL POC Hgb (12.0-16.0) g/dl Hct (37-47) % POC Hct (37-47) % MCV (80-100) fL MCH (25-34) pg MCHC (32-36) g/dL RDW Std Deviation (36.4-46.3) fL RDW Coeff of Francisco (11.5-14.5) % Plt Count (130-400) K/uL MPV (7.4-10.4) fL Immature Gran % (Auto) % Neut % (Auto) % Lymph % (Auto) % [place] % (Auto) % Eos % (Auto) % Baso % (Auto) % Neut # (Auto) (1.4-6.5) K/uL Lymph # (Auto) (1.2-3.4) K/uL [place] # (Auto) (0.11-0.59) K/uL Eos # (Auto) (0-0.5) K/uL Baso # (Auto) (0-0.2) K/uL Immature Gran # (Auto) (0.00-0.02) K/uL PT (9.0-12.0) Seconds INR (0.9-1.1) POC Sodium (135-144) mmol/L Sodium (136-145) mmol/L POC Potassium (3.3-5.0) mmol/L Potassium (3.5-5.1) mmol/L POC Chloride (101-112) mmol/L Chloride (98-107) mmol/L Carbon Dioxide (21-32) mmol/L POC Total CO2 (24-31) mmol/L Anion Gap (3-11) POC Anion Gap (16-25) mmol/L POC BUN (7-18) mg/dl BUN (7-18) mg/dl Creatinine (0.6-1.2) mg/dl POC Creatinine (0.6-1.3) mg/dl Est Cr Clr Drug Dosing ml/min Est GFR ( Amer) ml/min Est GFR (Non-Af Amer) ml/min BUN/Creatinine Ratio (10-20) Glucose (70-99) mg/dl POC Glucose (other) (70-99) mg/dl Lactate 2.4 H* (0.4-2.0) mmol/L Calcium (8.5-10.1) mg/dl POC Ioniz Calcium Misa (1.12-1.32) mmol/l Magnesium (1.8-2.4) mg/dl Total Bilirubin (0.2-1) mg/dl AST (15-37) U/L ALT (12-78) U/L Alkaline Phosphatase (45-117) U/L Troponin I (0-0.045) ng/ml Total Protein (6.4-8.2) gm/dl Albumin (3.4-5.0) gm/dl Globulin (2.5-4.0) gm/dl Albumin/Globulin Ratio (0.9-2) Lipase (73-393) U/L Urine Color Urine Appearance (Clear) Urine pH (4.5-7.5) Ur Specific Felicity (1.000-1.030) Urine Protein (Negative) Urine Glucose (UA) (Negative) Urine Ketones (Negative) Urine Blood (Negative) Urine Nitrite (Negative) Urine Bilirubin (Negative) Urine Urobilinogen (Negative) Ur Leukocyte Esterase (Negative) COVID-19 Eval Order Covid19 at [facility] SARS-CoV-2 (PCR) NEGATIVE (Negative) 11/29/20 11/29/20 Range/Units 16:21 17:45 WBC (4.8-10.8) K/uL RBC (4.2-5.4) M/uL Hgb (12.0-16.0) g/dL POC Hgb 14.6 (12.0-16.0) g/dl Hct (37-47) % POC Hct 43 (37-47) % MCV (80-100) fL MCH (25-34) pg MCHC (32-36) g/dL RDW Std Deviation (36.4-46.3) fL RDW Coeff of Francisco (11.5-14.5) % Plt Count (130-400) K/uL MPV (7.4-10.4) fL Immature Gran % (Auto) % Neut % (Auto) % Lymph % (Auto) % [place] % (Auto) % Eos % (Auto) % Baso % (Auto) % Neut # (Auto) (1.4-6.5) K/uL Lymph # (Auto) (1.2-3.4) K/uL [place] # (Auto) (0.11-0.59) K/uL Eos # (Auto) (0-0.5) K/uL Baso # (Auto) (0-0.2) K/uL Immature Gran # (Auto) (0.00-0.02) K/uL PT (9.0-12.0) Seconds INR (0.9-1.1) POC Sodium 138 (135-144) mmol/L Sodium (136-145) mmol/L POC Potassium 4.0 (3.3-5.0) mmol/L Potassium (3.5-5.1) mmol/L POC Chloride 102 (101-112) mmol/L Chloride (98-107) mmol/L Carbon Dioxide (21-32) mmol/L POC Total CO2 25 (24-31) mmol/L Anion Gap (3-11) POC Anion Gap 17.0 (16-25) mmol/L POC BUN 10 (7-18) mg/dl BUN (7-18) mg/dl Creatinine (0.6-1.2) mg/dl POC Creatinine 0.4 L (0.6-1.3) mg/dl Est Cr Clr Drug Dosing ml/min Est GFR ( Amer) ml/min Est GFR (Non-Af Amer) ml/min BUN/Creatinine Ratio (10-20) Glucose (70-99) mg/dl POC Glucose (other) 186 H (70-99) mg/dl Lactate (0.4-2.0) mmol/L Calcium (8.5-10.1) mg/dl POC Ioniz Calcium Misa 1.25 (1.12-1.32) mmol/l Magnesium (1.8-2.4) mg/dl Total Bilirubin (0.2-1) mg/dl AST (15-37) U/L ALT (12-78) U/L Alkaline Phosphatase (45-117) U/L Troponin I (0-0.045) ng/ml Total Protein (6.4-8.2) gm/dl Albumin (3.4-5.0) gm/dl Globulin (2.5-4.0) gm/dl Albumin/Globulin Ratio (0.9-2) Lipase (73-393) U/L Urine Color Yellow Urine Appearance Clear (Clear) Urine pH 7.5 (4.5-7.5) Ur Specific Felicity 1.042 H (1.000-1.030) Urine Protein Negative (Negative) Urine Glucose (UA) Negative (Negative) Urine Ketones Negative (Negative) Urine Blood Negative (Negative) Urine Nitrite Negative (Negative) Urine Bilirubin Negative (Negative) Urine Urobilinogen Negative (Negative) Ur Leukocyte Esterase Negative (Negative) COVID-19 Eval Order SARS-CoV-2 (PCR) (Negative) Administered Medications Discontinued Medications Albuterol (Albut/Ipratrop 3mg/0.5mg Neb 3 Ml Vial) 12 ml INH ONE STA Stop: 11/29/20 15:44 Last Admin: 11/29/20 16:57 Dose: 12 ml Documented by: [id number] Dexamethasone Sodium Phosphate (DexamethasonePf 10 Mg/Ml Vial) 10 mg IV NOW ONE Stop: 11/29/20 15:44 Last Admin: 11/29/20 16:14 Dose: 10 mg Documented by: [id number] Doxycycline Hyclate (Doxycycline Hyclate 100 Mg Cap) 100 mg PO NOW STA Stop: 11/29/20 17:26 Last Admin: 11/29/20 17:38 Dose: 100 mg Documented by: [id number] Sodium Chloride (Nss 1000ml) 1,000 mls @ 999 mls/hr IV .Q1H1M YAHIR Stop: 11/29/20 16:45 Last Admin: 11/29/20 16:15 Dose: 999 mls/hr Documented by: [id number] Ioversol (Optiray 320 125ml) 120 ml IV ONCE ONE Stop: 11/29/20 16:44 Last Admin: 11/29/20 16:43 Dose: 120 ml Documented by: [id number] Ketorolac Tromethamine (Ketorolac Tromethamine 15 Mg/Ml Vial) 10 mg IV NOW ONE Stop: 11/29/20 15:52 Last Admin: 11/29/20 16:13 Dose: 10 mg Documented by: [id number] Imaging Data Radiologist's Impression: Chest CTA 11/29/20 15:52 CT ANGIOGRAM OF THE CHEST CLINICAL HISTORY: PE, SOB, fevers COMPARISON STUDY: No previous studies for comparison. TECHNIQUE: Following the IV administration of 150 mL of Optiray, CT angiogram of the thorax was performed from the thoracic inlet to the lung bases utilizing the pulmonary embolus protocol. Images are reviewed in the axial, sagittal, and coronal planes. IV contrast was administered without complication. MIP imaging was performed. A dose lowering technique was utilized adhering to the p rinciples of ALEXIS. CT DOSE: 532.82 mGycm FINDINGS: Adequate opacification within main pulmonary artery. Main pulmonary artery is normal in caliber. No acute pulmonary embolus is seen. No right heart strain. Heart is normal in size without pericardial effusion. Heavy calcifications of the coronary arteries are seen. Fatty prominence of intra-arterial septum is seen. No pathologically enlarged axillary mediastinal or hilar lymph nodes were visualized. Thoracic aorta is normal in caliber with partial calcified plaques within its wall. Few areas of luminal irregularity and possible ulcer like projection are seen within the ascending thoracic aorta (4/139) Tracheobronchial tree is patent. No infiltrates or consolidative lesions are seen. Mild diffuse thickening of bronchial silva are seen. -4 mm pulmonary nodule is seen within the right lower lobe (4/81) -additional smaller pulmonary nodule is seen at the subpleural aspect of the right upper lobe (4/194) No pleural effusions are visualized. Limited evaluation of upper abdominal viscera shows no acute abnormalities. Osseous structures: Multilevel degenerative changes of the spine. IMPRESSION: 1. No evidence of pulmonary embolus. 2. Diffuse thickening of bronchial silva might be seen in bronchitis. No large infiltrates or consolidative lesions are seen. 3. Few pulmonary nodules measuring less than 4 mm in size. Follow-up evaluation in 12 months is optional per Fleischner Society guidelines. Please refer to below summary of Fleischner criteria recommendations for follow- up of incidental CT nodules (Deana Rocha, Guidelines for management of small pulmonary nodules detected on CT scans: A statement from the Fleischner Society, Radiology 237: [phone].) SOLID NODULES Solitary nodule size: <6 mm * low risk patients: no follow-up needed * high risk patients: optional CT at 12 months Solitary nodule size: 6-8 mm * low risk patients: follow-up at 6-12 months, then consider further follow-up at 18-24 months * high risk patients: initial follow-up CT at 6-12 months and then at 18-24 months if no change Solitary nodule size: >8 mm * either low or high risk patients - consider follow-up CT at 3 months, and/or CT-PET, and/or biopsy Multiple nodules size: <6 mm * low risk patients: no routine follow-up * high risk patients: optional CT at 12 months Multiple nodules size: 6-8 mm * low risk patients: follow-up at 3-6 months, then consider further follow-up at 18-24 months * high risk patients: follow-up at 3-6 months, then at 18-24 months if no change Multiple nodules size: >8 mm * low risk patients: follow-up at 3-6 months, then consider further follow-up at 18-24 months * high risk patients: follow-up at 3-6 months, then at 18-24 months if no change Note: newly detected indeterminate nodule in persons 35 years of age or older. * low risk patients: minimal or absent history of smoking and/or other known risk factors * high risk patients: history of smoking or of other known risk factors (e.g. first degree relative with lung cancer, or exposure to asbestos, radon, uranium) * if a nodule up to 8 mm is partly solid or is ground glass further follow-up is required after 24 months to exclude possible slow growing adenocarcinoma ([place]) SUBSOLID NODULES Solitary pure ground-glass nodule * nodule size <6 mm - no CT follow-up required * nodule size >=6 mm - follow-up CT at 6-12 months, then every 2 years until 5 years Solitary part-solid nodule * nodule size <6 mm - no CT follow-up required * nodule size >=6 mm - follow-up CT at 3-6 months. If unchanged, and solid component remains <6 mm, then annual follow-up for 5 years Multiple subsolid nodules * nodule size <6 mm - follow-up CT at 3-6 months, consider further follow-up at 2 and 4 years if stable * nodule size >=6 mm - follow-up CT at 3-6 months, subsequent management based on the most suspicious nodule(s) ACT 112: Positive. There are findings on this exam that require communication between the performing entity and the patient following Patient Test Result Information Act ([place] Act 112) guidelines. The above report was generated using voice recognition software. It may contain grammatical, syntax or spelling errors. Electronically signed by: Isaura Palomo DO 11/29/2020 5:18 PM Discharge Plan Visit Data Chief Complaint: Shortness of Breath/Dyspnea Stated Complaint: SHORTNESS OF BREATH ED Provider: Dev Rogers Discharge Problem: Acute exacerbation of chronic obstructive pulmonary disease (COPD), Breathlessness, Fatigue Patient Disposition: Being Evaluated by Hospitalist Forms Stand Alone Forms: [facility] Prescriptions Prescriptions: No Action Lantus U-100 Insulin 100 unit/mL Solution 20 unit SUBCUT QAM RF: 0 metformin 1,000 mg Tablet 1,000 mg PO BIDM RF: 0 doxepin 50 mg capsule 100 mg PO HS RF: 0 venlafaxine [Effexor XR] 37.5 mg capsule,extended release 24hr 37.5 mg PO DAILY RF: 0 prazosin [Minipress] 1 mg capsule 1 mg PO DAILY RF: 0 hydroxyzine pamoate [Vistaril] 25 mg capsule 25 mg PO TID PRN (Reason: Anxiety) RF: 0 gabapentin [Neurontin] 300 mg capsule 300 mg PO TID RF: 0 buprenorphine-naloxone 8-2 mg film 1.5 film sublingual DAILY RF: 0 Referrals Referrals: Carolann Louis MD [Primary Care Provider] - Discharge Problem: Fatigue Qualifiers: Fatigue type: unspecified Qualified Code(s): R53.83 - Other fatigue
[2020-11-29 16:34] LABS: iSTAT Creatinine 0.4 mg/dl (0.6-1.3); iSTAT Hemoglobin 14.6 g/dl (12.0-16.0); iSTAT Ionized Calcium 1.25 mmol/l (1.12-1.32)
[2020-11-29] MEDS ORDERED: OPTIRAY 320 125ml IV ONE (16:43)
[2020-11-29 16:58] LABS: Basophils # (auto) 0.05 K/uL (0-0.2); Basophils % (auto) 0.5 %; Eosinophils # (auto) 0.18 K/uL (0-0.5); Eosinophils % (auto) 1.8 %; Hematocrit (blood only) 42.5 % (37-47); Hemoglobin 14.3 g/dL (12.0-16.0); Immature Granulocytes # (auto) 0.03 K/uL (0.00-0.02); Immature Granulocytes % (auto) 0.3 %; Lymphocytes # (auto) 3.13 K/uL (1.2-3.4); Lymphocytes % (auto) 31.3 %; Mean Corpuscular Hemoglobin 28.6 pg (25-34); Mean Corpuscular Hgb Conc 33.6 g/dL (32-36); Mean Platelet Volume 11.3 fL (7.4-10.4); Monocytes # (auto) 0.52 K/uL (0.11-0.59); Monocytes % (auto) 5.2 %; Neutrophils % (auto) 60.9 %; Platelet Count 320 K/uL (130-400); RDW Coefficient of Variation 14.3 % (11.5-14.5); RDW Standard Deviation 44.8 fL (36.4-46.3); White Blood Count 10.01 K/uL (4.8-10.8)
[2020-11-29 17:07] LABS: INR 0.9 (0.9-1.1); Prothrombin Time 9.6 Seconds (9.0-12.0)
--- NOTE | 2020-11-29 17:19 | CT Scan Report ---
CT ANGIOGRAM OF THE CHEST CLINICAL HISTORY: PE, SOB, fevers COMPARISON STUDY: No previous studies for comparison. TECHNIQUE: Following the IV administration of 150 mL of Optiray, CT angiogram of the thorax was perfo rmed from the thoracic inlet to the lung bases utilizing the pulmonary embolus protocol. Images are r eviewed in the axial, sagittal, and coronal planes. IV contrast was administered without complication . MIP imaging was performed. A dose lowering technique was utilized adhering to the principles of AL KAIL[place]. CT DOSE: 532.82 mGycm FINDINGS: Adequate opacification within main pulmonary artery. Main pulmonary artery is normal in caliber. No acute pulmonary embolus is seen. No right heart strain. Heart is normal in size without pericardial effusion. Heavy calcifications of the coronary arteries a re seen. Fatty prominence of intra-arterial septum is seen. No pathologically enlarged axillary mediastinal or hilar lymph nodes were visualized. Thoracic aorta is normal in caliber with partial calcified plaques within its wall. Few areas of rob nal irregularity and possible ulcer like projection are seen within the ascending thoracic aorta (07/24 39) Tracheobronchial tree is patent. No infiltrates or consolidative lesions are seen. Mild diffuse thickening of bronchial silva are seen. -4 mm pulmonary nodule is seen within the right lower lobe (4/81) -additional smaller pulmonary nodule is seen at the subpleural aspect of the right upper lobe (4/194) No pleural effusions are visualized. Limited evaluation of upper abdominal viscera shows no acute abnormalities. Osseous structures: Multilevel degenerative changes of the spine. IMPRESSION: 1. No evidence of pulmonary embolus. 2. Diffuse thickening of bronchial silva might be seen in bronchitis. No large infiltrates or consol idative lesions are seen. 3. Few pulmonary nodules measuring less than 4 mm in size. Follow-up evaluation in 12 months is opti onal per Fleischner Society guidelines. Please refer to below summary of Fleischner criteria recommendations for follow-up of incidental CT n odules (Deana Rocha, Guidelines for management of small pulmonary nodules detected on CT scans: A sta tement from the Fleischner Society, Radiology 237: [phone].) SOLID NODULES Solitary nodule size: <6 mm * low risk patients: no follow-up needed * high risk patients: optional CT at 12 months Solitary nodule size: 6-8 mm * low risk patients: follow-up at 6-12 months, then consider further follow-up at 18-24 months * high risk patients: initial follow-up CT at 6-12 months and then at 18-24 months if no change Solitary nodule size: >8 mm * either low or high risk patients - consider follow-up CT at 3 months, and/or CT-PET, and/or biopsy Multiple nodules size: <6 mm * low risk patients: no routine follow-up * high risk patients: optional CT at 12 months Multiple nodules size: 6-8 mm * low risk patients: follow-up at 3-6 months, then consider further follow-up at 18-24 months * high risk patients: follow-up at 3-6 months, then at 18-24 months if no change Multiple nodules size: >8 mm * low risk patients: follow-up at 3-6 months, then consider further follow-up at 18-24 months * high risk patients: follow-up at 3-6 months, then at 18-24 months if no change Note: newly detected indeterminate nodule in persons 35 years of age or older. * low risk patients: minimal or absent history of smoking and/or other known risk factors * high risk patients: history of smoking or of other known risk factors (e.g. first degree relative with lung cancer, or exposure to asbestos, radon, uranium) * if a nodule up to 8 mm is partly solid or is ground glass further follow-up is required after 24 m onths to exclude possible slow growing adenocarcinoma ([place]) SUBSOLID NODULES Solitary pure ground-glass nodule * nodule size <6 mm - no CT follow-up required * nodule size >=6 mm - follow-up CT at 6-12 months, then every 2 years until 5 years Solitary part-solid nodule * nodule size <6 mm - no CT follow-up required * nodule size >=6 mm - follow-up CT at 3-6 months. If unchanged, and solid component remains <6 mm, then annual follow-up for 5 years Multiple subsolid nodules * nodule size <6 mm - follow-up CT at 3-6 months, consider further follow-up at 2 and 4 years if sta ble * nodule size >=6 mm - follow-up CT at 3-6 months, subsequent management based on the most suspiciou s nodule(s) ACT 112: Positive. There are findings on this exam that require communication between the performing entity and the patient following Patient Test Result Information Act ([place] Act 112) guidelines. The above report was generated using voice recognition software. It may contain grammatical, syntax o r spelling errors. Electronically signed by: Isaura Palomo DO 11/29/2020 5:18 PM
[2020-11-29] MEDS ORDERED: DOXYCYCLINE HYCLATE 100 MG CAP PO STA (17:25)
[2020-11-29 17:29] LABS: Alanine Aminotransferase 22 U/L (12-78); Albumin Level 3.2 gm/dl (3.4-5.0); Aspartate Aminotransferase 14 U/L (15-37); BUN Creatinine Ratio 19.3 (10-20); Blood Urea Nitrogen 10 mg/dl (7-18); Calcium 8.5 mg/dl (8.5-10.1); Carbon Dioxide 25 mmol/L (21-32); Chloride 106 mmol/L (98-107); Creatinine Clr Calc Pharmacy 108.4 ml/min; Est GFR (African American) 116.2 ml/min; Est GFR (Non-African American) 100.3 ml/min; Glucose 180 mg/dl (70-99); Lipase 84 U/L (73-393); Magnesium 1.9 mg/dl (1.8-2.4); Sodium 137 mmol/L (136-145)
[2020-11-29 17:34] LABS: Albumin Globulin Ratio 0.9 (0.9-2); Alkaline Phosphatase 94 U/L (45-117); Bilirubin,Total 0.6 mg/dl (0.2-1); Globulin 3.6 gm/dl (2.5-4.0); Total Protein 6.8 gm/dl (6.4-8.2); Troponin I < 0.015 ng/ml (0-0.045)
[2020-11-29 17:58] LABS: Appearance Urine Clear (Clear); Bilirubin Urine Negative (Negative); Blood Urine Negative (Negative); Color Urine Yellow; Glucose Urine UA Negative (Negative); Ketones Urine Negative (Negative); Leukocyte Esterase Urine Negative (Negative); Nitrite Urine Negative (Negative); Protein Urine Negative (Negative); Specific Gravity Urine 1.042 (1.000-1.030); Urobilinogen Urine Negative (Negative); pH Urine 7.5 (4.5-7.5)
--- NOTE | 2020-11-29 18:12 | History & Physical Report ---
Date of Service November 29, 2020 Assessment & Plan (1) COPD exacerbation: Plan: CTA chest w/o pneumonia but diffuse bronchial inflammation c/w active COPD. Viral etiology likely. Can't rule out bacterial cause. COVID negative today and COVID negative about 1 week ago in [place]. Will check RSV and flu. Start solumedrol 40mg IV q8h. Send sputum culture. Empiric doxycycline 100mg BID. Flutter valve. Incentive dulce. Mucinex. Schedule duonebs q6h. Uncertain why she is not on maintenance inhalers. Prior to discharge consider advair + spiriva or similar regimen. Desperately needs to quit smoking. (2) Chronic back pain: Plan: Takes soboxone daily. Has been on such for 3 years. Continue while in the hospital. (3) HTN (hypertension): Plan: uncontrolled. takes prazosin only. add amlodipine 5mg daily. (4) DM (diabetes mellitus): Plan: Last A1C was in 2019 at [facility]. Was >10. Recheck tomorrow. Due to steroids suspect significant rise in BSGs. Increase lantus to 20 units BID. Novolog correction and carb coverage. Hold metformin. (5) Major depressive disorder, recurrent episode with anxious distress: Plan: Cont doxepin. Cont effexor. (6) Lactic acidosis: Plan: Patient with normal WBC count. No fevers. Doesn't appear septic on exam. Check a procalcitonin. If elevated consider adding rocephin for broader empiric coverage. Follow blood cultures. IV fluids. Would obtain 1 additional lactate later tonight. (7) Pulmonary nodule less than 6 mm in diameter with high risk for malignant simba plasm: Plan: Several nodules seen incidentally on CTA. She is a long-time smoker thus she is a high-risk category. Will need to enter [facility] Pulmonary nodule program. Will consult. (8) Tobacco dependence: Plan: Nicoderm patch 21mg/day. Hand Fur Cleaner to quit. (9) HLD (hyperlipidemia): (10) DVT prophylaxis: Plan: lovenox 40mg daily History of Present Illness Chief Complaint: shortness of breath Primary Care Provider: Carolann Louis MD 64yo female with history of COPD presents with 1 week of respiratory symptoms. She has had chills, cough, dyspnea at rest, and dyspnea with exertion. She also mentions poor appetite. NO fever. NO headache, sore throat, nasal congestion, diarrhea, emesis. She reports chest tightness. Neb machine broke recently and in [place] has been using albuterol MDI but "doesn't seem to be helping." Saw [facility] about 1 week ago for the same symptoms. COVID test was negative at that time. Did not receive prednisone or other therapy. During my HPI she just wrapped up an hour-long neb and feels some better. NO travel. NO recent sick contacts. NO prior h/o COVID disease. She is not vaccinated against COVID-19. She is currently using tobacco about 1ppd and has been a smoker for 30 years. Has only quit briefly in the past. Allergies Allergy/AdvReac Type Severity Reaction Status Date / Time No Known Allergies Allergy Verified 11/29/20 18:17 Home Medications Medication Instructions Recorded Confirmed Type insulin glargine 100 unit/mL 20 unit SUBCUT QAM 01/31/18 11/29/20 History subcutaneous solution (Lantus U-100 Insulin) metformin 1,000 mg tablet 1,000 mg PO BIDM 01/31/18 11/29/20 History doxepin 50 mg capsule 100 mg PO HS 11/15/19 11/29/20 History gabapentin 300 mg capsule 300 mg PO TID 11/15/19 11/29/20 History (Neurontin) hydroxyzine pamoate 25 mg capsule 25 mg PO TID PRN 11/15/19 11/29/20 History (Vistaril) prazosin 1 mg capsule (Minipress) 1 mg PO DAILY 11/15/19 11/29/20 History venlafaxine 37.5 mg 37.5 mg PO DAILY 11/15/19 11/29/20 History capsule,extended release 24 hr (Effexor XR) buprenorphine 8 mg-naloxone 2 mg 1.5 film SUBLINGUAL DAILY 11/29/20 11/29/20 History sublingual film Past Med/Surg History Medical History (Updated 11/29/20 @ 20:54 by Damon Doherty) Chronic back pain on subutex x 3 years, sees clinic in [place] COPD (chronic obstructive pulmonary disease) DM (diabetes mellitus) Enteritis RADHA (generalized anxiety disorder) Major depressive disorder, recurrent episode with anxious distress Pancreatitis, acute 2nd gallstones PTSD (post-traumatic stress disorder) Pyelonephritis Surgical History (Updated 11/29/20 @ 18:31 by Damon Doherty) History of appendectomy History of tubal ligation Hx laparoscopic cholecystectomy [address] [place] [address] Family History Mother COPD (chronic obstructive pulmonary disease) Father , age 50 Myocardial infarction Social History Smoking Status: Current every day smoker Tobacco Type: Cigarettes packs per day: 1; Years Smoked: 30; Cigarettes Per Day: 20; Second Hand Exposure: Yes; Hx Alcohol Use: No Hx Substance Use: No Preferred Language: Armenian Communication Ability: Effective Visual Impairment: No Limitations Hearing Ability: Normal Senior Web Analyst Required: No Beliefs That Will Affect Care: None marital status details: significant other Current Living Situation: Significant Other Current Living Situation Comment: lives in [place] current occupational status: retired 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 How many Children do You have: 3 Feels Safe at Home: Yes Assistive Devices: None Review of Systems Constitutional: + chills, + body aches, + fatigue and + anorexia; no fever and no weight loss Eyes: + worsening vision (blurry - chronic ) Ear, Nose, Mouth, Throat: no nasal congestion, no sore throat and no dysphagia Respiratory: + cough, + dyspnea, + dyspnea on exertion, + sputum production and + wheezing; no hemoptysis Cardiovascular: + chest pain; no edema Gastrointestinal: no abdominal pain, no vomiting and no diarrhea/loose stools Genitourinary: no dysuria Musculoskeletal: + body aches Integumentary: no rash Neurologic: no numbness Psychiatric: + depression Endocrine: BSGs from diabetes -- <200 Hematologic / Lymphatic: no easy bleeding and no easy bruising Physical Exam Constitutional: + obese; no acute distress and no altered mental status Eyes: PERRL ENMT: external ear and nose normal, oropharynx normal Ears: no TM abnormality Neck: trachea midline, no thyromegaly Respiratory: + cough and + tachypneic (mild) Auscultation: + crackles (fine, basilar b/l ), + rhonchi (b/l ) and + wheezes (extensive b/l ) Cardiovascular: Rate/Rhythm: regular rate and regular rhythm Heart Sounds: normal S1 and normal S2; no murmur Vessels: posterior tibial pulses present (<1+ b/l, however; cap refill 3 seconds b/l feet; cool feet to touch ); no JVD Extremities: no edema Gastrointestinal (Abdomen): normal bowel sounds, soft, nontender, no hepatosplenomegaly Musculoskeletal: Extremities: + clubbing Skin: no rashes, warm and dry Neurologic: deep tendon reflexes 2+ bilaterally and moves all extremities; no focal motor deficits Psychiatric: A+Ox3, euthymic affect Lymphatic: no cervical lymphadenopathy Results & Data Results & Data ([facility]) Vital Signs (Past 12 Hours) Vital Signs Temp Pulse Pulse Resp BP BP Pulse Ox 11/29/20 17:47 91 H 18 185/88 H 100 11/29/20 17:41 91 H 17 100 11/29/20 16:58 77 18 99 11/29/20 16:52 77 16 170/77 H 96 11/29/20 16:33 97 11/29/20 15:47 77 16 170/77 H 96 11/29/20 15:44 156/83 H 11/29/20 15:38 36 C L 77 26 H 99 Laboratory Results Laboratory Results - last 24 hr 11/29/20 11/29/20 11/29/20 16:11 16:11 16:11 WBC 10.01 RBC 5.00 Hgb 14.3 POC Hgb Hct 42.5 POC Hct MCV 85.0 MCH 28.6 MCHC 33.6 RDW Std Deviation 44.8 RDW Coeff of Francisco 14.3 Plt Count 320 MPV 11.3 H Immature Gran % (Auto) 0.3 Neut % (Auto) 60.9 Lymph % (Auto) 31.3 [place] % (Auto) 5.2 Eos % (Auto) 1.8 Baso % (Auto) 0.5 Neut # (Auto) 6.10 Lymph # (Auto) 3.13 [place] # (Auto) 0.52 Eos # (Auto) 0.18 Baso # (Auto) 0.05 Immature Gran # (Auto) 0.03 H PT 9.6 INR 0.9 POC Sodium Sodium 137 POC Potassium Potassium 4.0 POC Chloride Chloride 106 Carbon Dioxide 25 POC Total CO2 Anion Gap 6.0 POC Anion Gap POC BUN BUN 10 Creatinine 0.52 L POC Creatinine Est Cr Clr Drug Dosing 108.4 Est GFR ( Amer) 116.2 Est GFR (Non-Af Amer) 100.3 BUN/Creatinine Ratio 19.3 Glucose 180 H POC Glucose (other) Lactate Calcium 8.5 POC Ioniz Calcium Misa Magnesium 1.9 Total Bilirubin 0.6 AST 14 L ALT 22 Alkaline Phosphatase 94 Troponin I < 0.015 Total Protein 6.8 Albumin 3.2 L Globulin 3.6 Albumin/Globulin Ratio 0.9 Lipase 84 Urine Color Urine Appearance Urine pH Ur Specific [place] Urine Protein Urine Glucose (UA) Urine Ketones Urine Blood Urine Nitrite Urine Bilirubin Urine Urobilinogen Ur Leukocyte Esterase COVID-19 Eval Order SARS-CoV-2 (PCR) Influ A Molecular Assay Influ B Molecular Assay RSV (Molecular) 11/29/20 11/29/20 11/29/20 16:11 16:13 16:13 WBC RBC Hgb POC Hgb Hct POC Hct MCV MCH MCHC RDW Std Deviation RDW Coeff of [place] Plt Count MPV Immature Gran % (Auto) Neut % (Auto) Lymph % (Auto) [place] % (Auto) Eos % (Auto) Baso % (Auto) Neut # (Auto) Lymph # (Auto) [place] # (Auto) Eos # (Auto) Baso # (Auto) Immature Gran # (Auto) PT INR POC Sodium Sodium POC Potassium Potassium POC Chloride Chloride Carbon Dioxide POC Total CO2 Anion Gap POC Anion Gap POC BUN BUN Creatinine POC Creatinine Est Cr Clr Drug Dosing Est GFR ( Amer) Est GFR (Non-Af Amer) BUN/Creatinine Ratio Glucose POC Glucose (other) Lactate 2.4 H* Calcium POC Ioniz Calcium Misa Magnesium Total Bilirubin AST ALT Alkaline Phosphatase Troponin I Total Protein Albumin Globulin Albumin/Globulin Ratio Lipase Urine Color Urine Appearance Urine pH Ur Specific [place] Urine Protein Urine Glucose (UA) Urine Ketones Urine Blood Urine Nitrite Urine Bilirubin Urine Urobilinogen Ur Leukocyte Esterase COVID-19 Eval Order Covid19 at [facility] SARS-CoV-2 (PCR) NEGATIVE Influ A Molecular Assay Influ B Molecular Assay RSV (Molecular) 11/29/20 11/29/20 11/29/20 16:21 17:45 18:49 WBC RBC Hgb POC Hgb 14.6 Hct POC Hct 43 MCV MCH MCHC RDW Std Deviation RDW Coeff of [place] Plt Count MPV Immature Gran % (Auto) Neut % (Auto) Lymph % (Auto) [place] % (Auto) Eos % (Auto) Baso % (Auto) Neut # (Auto) Lymph # (Auto) [place] # (Auto) Eos # (Auto) Baso # (Auto) Immature Gran # (Auto) PT INR POC Sodium 138 Sodium POC Potassium 4.0 Potassium POC Chloride 102 Chloride Carbon Dioxide POC Total CO2 25 Anion Gap POC Anion Gap 17.0 POC BUN 10 BUN Creatinine POC Creatinine 0.4 L Est Cr Clr Drug Dosing Est GFR ( Amer) Est GFR (Non-Af Amer) BUN/Creatinine Ratio Glucose POC Glucose (other) 186 H Lactate 4.4 H* Calcium POC Ioniz Calcium Misa 1.25 Magnesium Total Bilirubin AST ALT Alkaline Phosphatase Troponin I Total Protein Albumin Globulin Albumin/Globulin Ratio Lipase Urine Color Yellow Urine Appearance Clear Urine pH 7.5 Ur Specific [place] 1.042 H Urine Protein Negative Urine Glucose (UA) Negative Urine Ketones Negative Urine Blood Negative Urine Nitrite Negative Urine Bilirubin Negative Urine Urobilinogen Negative Ur Leukocyte Esterase Negative COVID-19 Eval Order SARS-CoV-2 (PCR) Influ A Molecular Assay Influ B Molecular Assay RSV (Molecular) 11/29/20 18:54 WBC RBC Hgb POC Hgb Hct POC Hct MCV MCH MCHC RDW Std Deviation RDW Coeff of [place] Plt Count MPV Immature Gran % (Auto) Neut % (Auto) Lymph % (Auto) [place] % (Auto) Eos % (Auto) Baso % (Auto) Neut # (Auto) Lymph # (Auto) [place] # (Auto) Eos # (Auto) Baso # (Auto) Immature Gran # (Auto) PT INR POC Sodium Sodium POC Potassium Potassium POC Chloride Chloride Carbon Dioxide POC Total CO2 Anion Gap POC Anion Gap POC BUN BUN Creatinine POC Creatinine Est Cr Clr Drug Dosing Est GFR ( Amer) Est GFR (Non-Af Amer) BUN/Creatinine Ratio Glucose POC Glucose (other) Lactate Calcium POC Ioniz Calcium Misa Magnesium Total Bilirubin AST ALT Alkaline Phosphatase Troponin I Total Protein Albumin Globulin Albumin/Globulin Ratio Lipase Urine Color Urine Appearance Urine pH Ur Specific [place] Urine Protein Urine Glucose (UA) Urine Ketones Urine Blood Urine Nitrite Urine Bilirubin Urine Urobilinogen Ur Leukocyte Esterase COVID-19 Eval Order SARS-CoV-2 (PCR) Influ A Molecular Assay Pending Influ B Molecular Assay Pending RSV (Molecular) Pending Diagnostic Findings Chest CTA 11/29/20 15:52 CT ANGIOGRAM OF THE CHEST CLINICAL HISTORY: PE, SOB, fevers COMPARISON STUDY: No previous studies for comparison. TECHNIQUE: Following the IV administration of 150 mL of Optiray, CT angiogram of the thorax was performed from the thoracic inlet to the lung bases utilizing the pulmonary embolus protocol. Images are reviewed in the axial, sagittal, and coronal planes. IV contrast was administered without complication. MIP imaging was performed. A dose lowering technique was utilized adhering to the principles of ALARA. CT DOSE: 532.82 mGycm FINDINGS: Adequate opacification within main pulmonary artery. Main pulmonary artery is normal in caliber. No acute pulmonary embolus is seen. No right heart strain. Heart is normal in size without pericardial effusion. Heavy calcifications of the coronary arteries are seen. Fatty prominence of intra-arterial septum is seen. No pathologically enlarged axillary mediastinal or hilar lymph nodes were visualized. Thoracic aorta is normal in caliber with partial calcified plaques within its wall. Few areas of luminal irregularity and possible ulcer like projection are seen within the ascending thoracic aorta (4/139) Tracheobronchial tree is patent. No infiltrates or consolidative lesions are seen. Mild diffuse thickening of bronchial silva are seen. -4 mm pulmonary nodule is seen within the right lower lobe (4/81) -additional smaller pulmonary nodule is seen at the subpleural aspect of the right upper lobe (4/194) No pleural effusions are visualized. Limited evaluation of upper abdominal viscera shows no acute abnormalities. Osseous structures: Multilevel degenerative changes of the spine. IMPRESSION: 1. No evidence of pulmonary embolus. 2. Diffuse thickening of bronchial silva might be seen in bronchitis. No large infiltrates or consolidative lesions are seen. 3. Few pulmonary nodules measuring less than 4 mm in size. Follow-up evaluation in 12 months is optional per Fleischner Society guidelines. Please refer to below summary of Fleischner criteria recommendations for follow- up of incidental CT nodules (Deana Rocha, Guidelines for management of small pulmonary nodules detected on CT scans: A statement from the Fleischner Society, Radiology 237: [phone].) SOLID NODULES Solitary nodule size: <6 mm * low risk patients: no follow-up needed * high risk patients: optional CT at 12 months Solitary nodule size: 6-8 mm * low risk patients: follow-up at 6-12 months, then consider further follow-up at 18-24 months * high risk patients: initial follow-up CT at 6-12 months and then at 18-24 months if no change Solitary nodule size: >8 mm * either low or high risk patients - consider follow-up CT at 3 months, and/or CT-PET, and/or biopsy Multiple nodules size: <6 mm * low risk patients: no routine follow-up * high risk patients: optional CT at 12 months Multiple nodules size: 6-8 mm * low risk patients: follow-up at 3-6 months, then consider further follow-up at 18-24 months * high risk patients: follow-up at 3-6 months, then at 18-24 months if no change Multiple nodules size: >8 mm * low risk patients: follow-up at 3-6 months, then consider further follow-up at 18-24 months * high risk patients: follow-up at 3-6 months, then at 18-24 months if no change Note: newly detected indeterminate nodule in persons 35 years of age or older. * low risk patients: minimal or absent history of smoking and/or other known risk factors * high risk patients: history of smoking or of other known risk factors (e.g. first degree relative with lung cancer, or exposure to asbestos, radon, uranium) * if a nodule up to 8 mm is partly solid or is ground glass further follow-up is required after 24 months to exclude possible slow growing adenocarcinoma ([place]) SUBSOLID NODULES Solitary pure ground-glass nodule * nodule size <6 mm - no CT follow-up required * nodule size >=6 mm - follow-up CT at 6-12 months, then every 2 years until 5 years Solitary part-solid nodule * nodule size <6 mm - no CT follow-up required * nodule size >=6 mm - follow-up CT at 3-6 months. If unchanged, and solid component remains <6 mm, then annual follow-up for 5 years Multiple subsolid nodules * nodule size <6 mm - follow-up CT at 3-6 months, consider further follow-up at 2 and 4 years if stable * nodule size >=6 mm - follow-up CT at 3-6 months, subsequent management based on the most suspicious nodule(s) ACT 112: Positive. There are findings on this exam that require communication between the performing entity and the patient following Patient Test Result Information Act ([place] Act 112) guidelines. The above report was generated using voice recognition software. It may contain grammatical, syntax or spelling errors. Electronically signed by: Isaura Palomo DO 11/29/2020 5:18 PM EKG - NSR, early repol changes inferior leads but not ST segment elevation, no other ST changes Code Status & VTE Plan Code Status full code PG Care Time/CCT Total # of Minutes Spent Total Time Spent with Patient: Total time spent is greater than 50% in coordination of care (as documented) at patient's floor/unit and/or counseling patient: Coding Level of Care Code INT OBSERVATION CARE 70M LVL 3 Diagnoses COPD exacerbation J44.1 Chronic back pain M54.9; G89.29 HLD (hyperlipidemia) E78.5 HTN (hypertension) I10 DM (diabetes mellitus) E11.9 Major depressive disorder, recurrent episode with anxious distress F33.9 Lactic acidosis E87.2 Pulmonary nodule less than 6 mm in diameter with high risk for malignant neoplasm R91.1; Z91.89 Tobacco dependence F17.200 DVT prophylaxis Z29.9
[2020-11-29 21:18] LABS: Influenza A virus by PCR Negative (Negative); Influenza B virus by PCR Negative (Negative); RSV by PCR Negative (Negative)
[2020-11-29] MEDS ORDERED: NITROGLYCERIN SL 0.4 MG/TAB TAB SL PRN (21:49)
[2020-11-29] MEDS ORDERED: POLYETHYLENE (MIRALAX) 17 GM PACK PO PRN (21:49)
[2020-11-29] MEDS ORDERED: ONDANSETRON INJ 2 MG/ML 2 ML VIAL IV PRN (21:49)
[2020-11-29] MEDS ORDERED: BENZONATATE 100 MG CAPSULE PO PRN (21:49)
[2020-11-29] MEDS ORDERED: SODIUM CHLORIDE 0.9% 500 ML IV SCH (21:49)
[2020-11-29] MEDS ORDERED: hydrOXYzine HCl 25 MG TAB PO PRN (21:49)
[2020-11-29] MEDS ORDERED: ALUMINUM/MAGNESIUM SUSP 30 ML UDC PO PRN (21:49)
[2020-11-29] MEDS ORDERED: amLODIPine BESYLATE 5 MG TAB PO ONE (22:15)
[2020-11-29] MEDS: methylPREDNISolone 40 MG in SYRINGE 0 ML IV SCH (22:49)
[2020-11-29] MEDS: ENOXAPARIN INJ 40 MG/0.4 ML SYR SQ SCH (22:50)
[2020-11-29] MEDS: MELATONIN 3 MG TAB PO SCH (22:51)
[2020-11-29] MEDS: GABAPENTIN 300 MG CAP PO SCH (22:51)
[2020-11-29] MEDS: DOXEPIN HCL 50 MG CAPSULE PO SCH (22:53)
[2020-11-29] MEDS: guaiFENesin 600 MG TABCR PO SCH (22:53)
[2020-11-29] MEDS: INSULIN ASPART 100 UNITS/ML 3 ML PEN SC SCH (22:55)
[2020-11-29] MEDS: INSULIN GLARGINE SOLOSTAR 100 UNITS/ML 3 ML PEN SC SCH (22:56)
[2020-11-29] MEDS: ALBUT/IPRATROP 3MG/0.5MG NEB 3 ML VIAL NEB SCH (23:04)
[2020-11-29] MEDS: ACETAMINOPHEN 325 MG TAB PO PRN (23:14)
[2020-11-30] MEDS: methylPREDNISolone 40 MG in SYRINGE 0 ML IV SCH ×3 (05:56→21:40)
--- NOTE | 2020-11-30 07:27 | Electrocardiogram Report ---
Test Reason : Blood Pressure : / mmHG Vent. Rate : 076 BPM Atrial Rate : 076 BPM P-R Int : 218 ms QRS Dur : 066 ms QT Int : 404 ms P-R-T Axes : 000 000 041 degrees QTc Int : 454 ms Sinus rhythm with 1st degree A-V block Abnormal ECG Confirmed by Zeferino Benavides ([id number]) on 11/30/2020 7:26:54 AM Referred By: REFERRED SELF Confirmed By:Mark Benavides
[2020-11-30] MEDS: ALBUT/IPRATROP 3MG/0.5MG NEB 3 ML VIAL NEB SCH ×4 (07:37→19:36)
--- NOTE | 2020-11-30 08:24 | Hospitalist Progress Note ---
Date of Service November 30, 2020 Assessment & Plan (1) COPD exacerbation: Plan: CTA chest w/o pneumonia but diffuse bronchial inflammation c/w active COPD. Viral etiology likely. Can't rule out bacterial cause. COVID negative today and COVID negative about 1 week ago in [place]. Negative RSV and flu. Start solumedrol 40mg IV q8h.transition to prednisone in the morning of December 01 Sent sputum culture. Empiric doxycycline 100mg BID continues. Flutter valve. Incentive dulce. Mucinex. Schedule duonebs q6h. Uncertain why she is not on maintenance inhalers. Prior to discharge consider advair + spiriva or similar regimen. Desperately needs to quit smoking, cessation councelling given . (2) Chronic back pain: Plan: Takes soboxone daily. Back pain appears to be controlled Has been on such for 3 years. Continue while in the hospital. (3) HTN (hypertension): Plan: Initially uncontrolled. takes prazosin only. added amlodipine 5mg daily with robust response, question compliance to prazosin. (4) DM (diabetes mellitus): Plan: Last A1C was in 2019 at [facility]. Was >10. pending recheck Due to steroids suspect significant rise in BSGs. Increase lantus to 20 units BID. Novolog correction and carb coverage. Hold metformin. (5) Major depressive disorder, recurrent episode with anxious distress: Plan: Cont doxepin. Cont effexor. (6) Lactic acidosis: Plan: Patient with normal WBC count. No fevers. Doesn't appear septic on exam. procalcitonin negative . blood cultures negative to date Lactic acid had risen over the last checks pending a check on 30 November, this appears out of proportion to her clinical findings (7) Pulmonary nodule less than 6 mm in diameter with high risk for malignant neoplasm: Plan: Several nodules seen incidentally on CTA. She is a long-time smoker thus she is a high-risk category. Will need to enter [facility] Pulmonary nodule program. Lung nodule program has been consulted (8) Tobacco dependence: Plan: Nicoderm patch 21mg/day. 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 Patient said she is not smoked for about 4 weeks (9) HLD (hyperlipidemia): (10) DVT prophylaxis: Plan: lovenox 40mg daily Admission and Anticipated Discharge Date Admission Date: November 29, 2020 Subjective Patient states she feels of about 50% better. She notices less work of breathing she continues with clear mucus production she says she is eating and drinking well and going to the bathroom very frequently therefore we will cut her IV fluid Review of Systems Review of Systems: Moderate distress and fatigue no headache, no visual changes no speech or swallowing issues no chest pain, pressure or palpitations Continued but lessening shortness of breath, productive cough no wheezes no abdominal pain, nausea or vomiting, diarrhea or constipation no dysuria, hematuria does have frequency but is getting IV fluid no focal joint pain or swelling no back pain, CVA tenderness or radicular pain no bruising, bleeding or rashes no focal signs of weakness or numbness or altered sensation no complaints of anxiety or depression.. Physical Exam Physical Exam: The patient appeared well nourished and normally developed. Vital signs as documented. Head exam is normocephalic atraumatic Neck is without JVD, thyromegaly, or carotid bruits. Lungs are clear to auscultation, but she remains tachypneic, no focal loss of breath sounds Cardiac exam, Rhythm is regular.. No murmurs, rubs or gallops. Abdominal exam reveals normal bowel sounds, soft non tender, no masses Extremities are trace edematous equal bilaterally and both pedal pulses are present Neurologic exam is alert and oriented, no focal loss of strength or sensation Skin is without bruises or rashes Psychologically is without concerns for anxiety or depression Results & Data Results & Data ([facility]) Vital Signs (Past 12 Hours) Vital Signs Temp Pulse Resp BP Pulse Ox 11/30/20 07:37 86 16 91 11/30/20 07:25 97.7 F 91 H 19 106/66 92 11/30/20 03:30 97.9 F 91 H 16 111/68 92 11/29/20 23:04 93 H 16 94 11/29/20 21:30 98.1 F 88 18 103/53 L 95 PG Care Time/CCT Total # of Minutes Spent Total Time Spent with Patient: Total time spent is greater than 50% in coordination of care (as documented) at patient's floor/unit and/or counseling patient: Coding Level of Care Code 89240 Subseq Hosp Care Lvl 3 Diagnoses COPD exacerbation J44.1 Chronic back pain M54.9; G89.29 HTN (hypertension) I10 DM (diabetes mellitus) E11.9 Major depressive disorder, recurrent episode with anxious distress F33.9 Lactic acidosis E87.2 Pulmonary nodule less than 6 mm in diameter with high risk for malignant neoplasm R91.1; Z91.89 Tobacco dependence F17.200 HLD (hyperlipidemia) E78.5 DVT prophylaxis Z29.9
[2020-11-30] MEDS: INSULIN ASPART 100 UNITS/ML 3 ML PEN SC SCH ×4 (08:26→20:38)
[2020-11-30] MEDS: GABAPENTIN 300 MG CAP PO SCH ×3 (08:27→20:34)
[2020-11-30] MEDS: amLODIPine BESYLATE 5 MG TAB PO SCH (08:27)
[2020-11-30] MEDS: DOXYCYCLINE HYCLATE 100 MG CAP PO SCH ×2 (08:28→20:35)
[2020-11-30] MEDS: INSULIN GLARGINE SOLOSTAR 100 UNITS/ML 3 ML PEN SC SCH ×2 (08:28→20:36)
[2020-11-30] MEDS: PRAZOSIN HCL 1 MG CAP PO SCH (08:29)
[2020-11-30] MEDS: VENLAFAXINE HCL XR 37.5 MG CAPXR PO SCH (08:29)
[2020-11-30] MEDS: guaiFENesin 600 MG TABCR PO SCH ×2 (08:29→20:36)
[2020-11-30] MEDS: BUPRENORPHINE/NALOXONE 8/2 MG TAB SL SCH (08:32)
[2020-11-30] MEDS ORDERED: LANTUS PER UNIT CHARGE SQ SCH (09:00)
[2020-11-30 09:13] LABS: BUN Creatinine Ratio 16.8 (10-20); Creatinine Clr Calc Pharmacy 81.6 ml/min; Est GFR (African American) 105.9 ml/min; Est GFR (Non-African American) 91.4 ml/min; Potassium 4.3 mmol/L (3.5-5.1)
[2020-11-30] MEDS: ACETAMINOPHEN 325 MG TAB PO PRN (14:49)
[2020-11-30] MEDS ORDERED: VANCOMYCIN CONSULT ACTIVE PRN (16:51)
[2020-11-30] MEDS: NICOTINE 21 MG/24 HR TDSY TD SCH (17:28)
[2020-11-30] MEDS ORDERED: VANCOMYCIN HCL 2,000 MG in SODIUM CHLORIDE 0.9% 500 ML IV ONE (17:30)
[2020-11-30] MEDS: DOXEPIN HCL 50 MG CAPSULE PO SCH (20:34)
[2020-11-30] MEDS: ENOXAPARIN INJ 40 MG/0.4 ML SYR SQ SCH (20:34)
--- NOTE | 2020-11-30 20:49 | Pharmacy Report ---
Pharmacy Abx Dose Short Note - Date of Service November 30, 2020 - Assessment & Plan Assessment 64 year old F admitted for COPD exacerbation. Patient was started on Doxycycline for possible pneumonia. Blood cultures now growing Gram positive cocci in clusters. Vancomycin ordered today, dosing per pharmacy consult. Plan Vancomycin * Estimated pk parameters: Ke = 0.0646/hr, t1/2 = 10.7 hrs. * Vancomycin loading dose 2000 mg (25 mg/kg) IV x 1 dose ordered this evening. * Maintenance dose: 1250 mg (15 mg/kg) IV q12h starts tomorrow. * Goal trough level: 15-20 mcg/ml for bacteremia. * Trough level ordered before 3rd maintenance dose on 12/02/20 @ 6 AM. Pharmacy will continue to follow and will adjust dose/frequency as necessary. Thank you.
[2020-11-30] MEDS: MELATONIN 3 MG TAB PO SCH (21:17)
[2020-12-01] MEDS: VANCOMYCIN HCL 1,250 MG in SODIUM CHLORIDE 0.9% 250 ML IV SCH ×2 (05:55→08:19)
[2020-12-01] MEDS: ALBUT/IPRATROP 3MG/0.5MG NEB 3 ML VIAL NEB SCH ×4 (07:13→19:57)
--- NOTE | 2020-12-01 07:21 | Hospitalist Progress Note ---
Date of Service December 01, 2020 Assessment & Plan (1) COPD exacerbation: Plan: CTA chest w/o pneumonia but diffuse bronchial inflammation c/w active COPD. Viral etiology likely. Can't rule out bacterial cause. COVID negative today and COVID negative about 1 week ago in [place]. Negative RSV and flu. Start solumedrol 40mg IV q8h.transition to prednisone in the morning of December 01 Sent sputum culture. Empiric doxycycline 100mg BID continues. Flutter valve. Incentive dulce. Mucinex. Schedule duonebs q6h. Uncertain why she is not on maintenance inhalers. Prior to discharge consider advair + spiriva or similar regimen. Desperately needs to quit smoking, cessation councelling given . (2) Blood culture positive for microorganism: Plan: 1 of 4 cultures are positive for gram positive cocci, no clinical source, ua negative, cough non productive and initial procal is negative, however did have elevated lactic acid on admission... Started on vanco, additional cultures, checking ESR, will keep vancomycin to see if contaminant or if additional cultures/clinical exam findings correlate. (3) HTN (hypertension): Plan: Initially uncontrolled. takes prazosin only. added amlodipine 5mg daily with robust response, question compliance to prazosin. (4) DM (diabetes mellitus): Plan: Last A1C was in 2019 at [facility]. Was >10. pending recheck Due to steroids suspect significant rise in BSGs. Increase lantus to 20 units BID. Novolog correction and carb coverage. Hold metformin. (5) Major depressive disorder, recurrent episode with anxious distress: Plan: Cont doxepin. Cont effexor. (6) Lactic acidosis: Plan: Patient with normal WBC count. No fevers. Doesn't appear septic on exam. procalcitonin negative . blood cultures 104 showing coag negative staph Lactic acid had risen over the last checks pending a check on 30 November, this appears out of proportion to her clinical findings (7) Pulmonary nodule less than 6 mm in diameter with high risk for malignant neoplasm: Plan: Several nodules seen incidentally on CTA. She is a long-time smoker thus she is a high-risk category. Will need to enter [facility] Pulmonary nodule program. Lung nodule program has been consulted (8) Chronic back pain: Plan: Takes soboxone daily. Back pain appears to be controlled Has been on such for 3 years. Continue while in the hospital. 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 Patient said she is not smoked for about 4 weeks (10) HLD (hyperlipidemia): (11) DVT prophylaxis: Plan: lovenox 40mg daily Admission and Anticipated Discharge Date Admission Date: November 29, 2020 Subjective Patient states he feels good she is little bit of expiratory wheezes she is explained the fact that one of her blood cultures did come back positive and that coupled with her initial presentation there were some concerns that this could be a real infection versus a contaminant, particularly elevated lactate on presentation. He continues to have no focal signs or symptoms of a etiology origin for a staph infection. Review of Systems Review of Systems: Mild distress and fatigue no headache, no visual changes no speech or swallowing issues no chest pain, pressure or palpitations Mild dyspnea on exertion and end expiratory wheezes no abdominal pain, nausea or vomiting, diarrhea or constipation no dysuria, hematuria or frequency no focal joint pain or swelling no back pain, CVA tenderness or radicular pain no bruising, bleeding or rashes no focal signs of weakness or numbness or altered sensation no complaints of anxiety or depression.. Physical Exam Physical Exam: The patient appeared well nourished and normally developed. Vital signs as documented. Head exam is normocephalic atraumatic Neck is without JVD, thyromegaly, or carotid bruits. Lungs are good air movement but mild end expiratory wheezes Cardiac exam, Rhythm is regular.. No murmurs, rubs or gallops. Abdominal exam reveals normal bowel sounds, soft non tender, no masses Extremities are nonedematous and both pedal pulses are present Neurologic exam is alert and oriented, no focal loss of strength or sensation Skin is without bruises or rashes Psychologically is without concerns for anxiety or depression Results & Data Results & Data ([facility]) Vital Signs (Past 12 Hours) Vital Signs Temp Pulse Resp BP Pulse Ox 12/01/20 07:13 69 16 96 12/01/20 07:04 97.7 F 69 16 113/67 94 12/01/20 03:11 97.9 F 78 17 116/68 95 11/30/20 23:22 98.6 F 86 19 111/67 92 11/30/20 19:37 92 H 16 92 11/30/20 19:20 98.4 F 90 19 102/63 92 PG Care Time/CCT Total # of Minutes Spent Total Time Spent with Patient: Total time spent is greater than 50% in coordination of care (as documented) at patient's floor/unit and/or counseling patient: Coding Level of Care Code 69266 Subseq Hosp Care Lvl 2 Diagnoses COPD exacerbation J44.1 Chronic back pain M54.9; G89.29 HTN (hypertension) I10 DM (diabetes mellitus) E11.9 Major depressive disorder, recurrent episode with anxious distress F33.9 Lactic acidosis E87.2 Pulmonary nodule less than 6 mm in diameter with high risk for malignant neoplasm R91.1; Z91.89 Tobacco dependence F17.200 HLD (hyperlipidemia) E78.5 DVT prophylaxis Z29.9 Blood culture positive for microorganism R79.89
[2020-12-01] MEDS: INSULIN ASPART 100 UNITS/ML 3 ML PEN SC SCH ×4 (07:59→21:13)
[2020-12-01] MEDS: guaiFENesin 600 MG TABCR PO SCH ×2 (08:00→21:16)
[2020-12-01] MEDS: DOXYCYCLINE HYCLATE 100 MG CAP PO SCH ×2 (08:00→21:15)
[2020-12-01] MEDS: PRAZOSIN HCL 1 MG CAP PO SCH (08:00)
[2020-12-01] MEDS: amLODIPine BESYLATE 5 MG TAB PO SCH (08:00)
[2020-12-01] MEDS: VENLAFAXINE HCL XR 37.5 MG CAPXR PO SCH (08:00)
[2020-12-01] MEDS: NICOTINE 21 MG/24 HR TDSY TD SCH (08:01)
[2020-12-01] MEDS: predniSONE 20 MG TAB PO SCH (08:01)
[2020-12-01] MEDS: GABAPENTIN 300 MG CAP PO SCH ×3 (08:01→21:15)
[2020-12-01] MEDS: INSULIN GLARGINE SOLOSTAR 100 UNITS/ML 3 ML PEN SC SCH ×2 (08:02→21:13)
[2020-12-01] MEDS: BUPRENORPHINE/NALOXONE 8/2 MG TAB SL SCH (08:14)
[2020-12-01 08:26] LABS: Basophils # (auto) 0.01 K/uL (0-0.2); Hematocrit (blood only) 40.9 % (37-47); Hemoglobin 13.5 g/dL (12.0-16.0); Immature Granulocytes # (auto) 0.05 K/uL (0.00-0.02); Immature Granulocytes % (auto) 0.2 %; Lymphocytes # (auto) 1.49 K/uL (1.2-3.4); Lymphocytes % (auto) 7.2 %; Mean Corpuscular Hemoglobin 28.2 pg (25-34); Mean Corpuscular Volume 85.4 fL (80-100); Mean Platelet Volume 10.8 fL (7.4-10.4); Monocytes # (auto) 0.87 K/uL (0.11-0.59); Monocytes % (auto) 4.2 %; Neutrophils # (auto) 18.19 K/uL (1.4-6.5); Neutrophils % (auto) 88.4 %; Platelet Count 283 K/uL (130-400); RDW Coefficient of Variation 14.8 % (11.5-14.5); Red Blood Count 4.79 M/uL (4.2-5.4); White Blood Count 20.61 K/uL (4.8-10.8)
[2020-12-01] MEDS: ACETAMINOPHEN 325 MG TAB PO PRN (16:05)
[2020-12-01] MEDS: ENOXAPARIN INJ 40 MG/0.4 ML SYR SQ SCH (21:14)
[2020-12-01] MEDS: DOXEPIN HCL 50 MG CAPSULE PO SCH (21:15)
[2020-12-01] MEDS: MELATONIN 3 MG TAB PO SCH (21:16)
[2020-12-02] MEDS ORDERED: VANCOMYCIN TROUGH ONE (05:30)
[2020-12-02] MEDS: ALBUT/IPRATROP 3MG/0.5MG NEB 3 ML VIAL NEB SCH ×3 (06:58→15:14)
[2020-12-02] MEDS: NICOTINE 21 MG/24 HR TDSY TD SCH (09:16)
[2020-12-02] MEDS: BUPRENORPHINE/NALOXONE 8/2 MG TAB SL SCH (09:16)
[2020-12-02] MEDS: PRAZOSIN HCL 1 MG CAP PO SCH (09:16)
[2020-12-02] MEDS: predniSONE 20 MG TAB PO SCH (09:17)
[2020-12-02] MEDS: amLODIPine BESYLATE 5 MG TAB PO SCH (09:17)
[2020-12-02] MEDS: DOXYCYCLINE HYCLATE 100 MG CAP PO SCH (09:17)
[2020-12-02] MEDS: GABAPENTIN 300 MG CAP PO SCH ×2 (09:17→14:16)
[2020-12-02] MEDS: guaiFENesin 600 MG TABCR PO SCH (09:17)
[2020-12-02] MEDS: VENLAFAXINE HCL XR 37.5 MG CAPXR PO SCH (09:17)
[2020-12-02] MEDS: INSULIN GLARGINE SOLOSTAR 100 UNITS/ML 3 ML PEN SC SCH (09:18)
[2020-12-02] MEDS: INSULIN ASPART 100 UNITS/ML 3 ML PEN SC SCH ×2 (09:20→13:09)
--- NOTE | 2020-12-02 19:34 | Discharge Summary ---
Date of Service December 02, 2020 Admission HPI Per Admitting Provider 64yo female with history of COPD presents with 1 week of respiratory symptoms. She has had chills, cough, dyspnea at rest, and dyspnea with exertion. She also mentions poor appetite. NO fever. NO headache, sore throat, nasal congestion, diarrhea, emesis. She reports chest tightness. Neb machine broke recently and in [place] has been using albuterol MDI but "doesn't seem to be helping." Saw [facility] ER about 1 week ago for the same symptoms. COVID test was negative at that time. Did not receive prednisone or other therapy. During my HPI she just wrapped up an hour-long neb and feels some better. NO travel. NO recent sick contacts. NO prior h/o COVID disease. She is not vaccinated against COVID-19. She is currently using tobacco about 1ppd and has been a smoker for 30 years. Has only quit briefly in the past. Principal Diagnosis copd exacerbation bronchitis on doxycycline blood culture suspected to be contaminant uncontrolled diabetes lactic acidosis pulmonary nodule Discharge Exam The patient appeared well Vital signs as documented. Lungs are clear to auscultation and appear unlabored no wheezes Cardiac exam, Rhythm is regular.. No murmurs, rubs or gallops. Abdominal exam reveals normal bowel sounds, soft non tender, no masses Extremities are nonedematous and both pedal pulses are normal. Neurologic exam is alert and oriented, no focal loss of strength or sensation Skin is without bruises or rashes Psychologically is without concerns for anxiety or depression. Discharge Data Allergies Allergy/AdvReac Type Severity Reaction Status Date / Time No Known Allergies Allergy Verified 11/29/20 18:17 Consultations 11/29/20 17:47 ED Decision to Admit Stat Ordered Studies 11/29/20 15:52 CT angio chest PE protocol Stat Hospital Course (1) COPD exacerbation: CTA chest w/o pneumonia but diffuse bronchial inflammation c/w active COPD. Viral etiology likely. Can't rule out bacterial cause. COVID negative today and COVID negative about 1 week ago in [place]. Negative RSV and flu. Start solumedrol 40mg IV q8h.transition to prednisone in the morning of December 01 will be on outpatient taper Empiric doxycycline 100mg BID continues after discharge. Home on Symbicort and Combivent Mucinex. Desperately needs to quit smoking, cessation counselling given . (2) Blood culture positive for microorganism: 1 of 4 cultures are positive for gram positive cocci, no clinical source, ua negative, cough non productive and initial procal is negative, however did have elevated lactic acid on admission... Started on vanco, additional cultures, checking ESR, will keep vancomycin to see if contaminant or if additional cultures/clinical exam findings correlate. (3) HTN (hypertension): Initially uncontrolled. takes prazosin only. (4) DM (diabetes mellitus): Hemoglobin A1c 11.6 Resume metformin patient request to see still operator gin but not Dr. Landeros to talk about transitioning to insulin. We offered her to talk to the diabetic nurse educator before she left but she requested to leave the hospital and this educator was unavailable at this time. He was educated on dietary restriction. (5) Major depressive disorder, recurrent episode with anxious distress: Cont doxepin. Cont effexor. (6) Lactic acidosis: Patient with normal WBC count. No fevers. Doesn't appear septic on exam. procalcitonin negative . blood cultures 1 0f 4 showing coag negative staph Lactic acid had risen over the last checks pending a check on 30 November, this appears out of proportion to her clinical findings (7) Pulmonary nodule less than 6 mm in diameter with high risk for malignant neoplasm: Several nodules seen incidentally on CTA. She is a long-time smoker thus she is a high-risk category. Will need to enter [facility] Pulmonary nodule program. Lung nodule program has been consulted (8) Chronic back pain: Takes soboxone daily. Back pain appears to be controlled Has been on such for 3 years. Continue while in the hospital. 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 Patient said she is not smoked for about 4 weeks (10) HLD (hyperlipidemia): (11) DVT prophylaxis: lovenox 40mg daily Total Time Total Time Spent Total Time Spent (In Minutes): It required greater than 30 minutes to prepare this patient for discharge Discharge Plan Discharge Items Patient Disposition: Home - Self-Care Reason For Visit: COPD EXACERBATION Discharge Diagnosis: copd exacerbation one of four blood cultures showing bacteria felt to be a contaminant Activity: Per Instructions section Activity Comment: gradually increase activity Non-emergency contact: Primary Care Provider Call non-emergency contact if: your symptoms worsen and you have a fever Follow-up/Referrals: Carolann Louis MD [Primary Care Provider] - 12/05/20 10:00 am Diet: Carb Consistent or DM2 Addtl Attending Provider Instructions: please follow up with your primary care doctor in one week to assure you continue to do better please stop smoking, if you need help discuss with your family doctor about programs or medications to help there seems to be a small lung nodule or scar seen, you will need to have some follow up lung imaging studies to assure it does not environmental change analyst time Pending Studies at Discharge: No Stand-Alone Forms: My [facility], Smoking Cessation Medications and DC Order Prescriptions: New doxycycline hyclate 100 mg Capsule 100 mg PO BID Qty: 14 RF: 0 guaifenesin [Mucinex] 600 mg Tablet Extended Release 12hr 1,200 mg PO Q12 Qty: 10 RF: 0 ipratropium-albuterol 0.5 mg-3 mg(2.5 mg base)/3 mL Solution For Nebulization 3 ml NEB QIDR Qty: 30 RF: 0 prednisone 10 mg tablet 10 mg PO UD Qty: 40 RF: 0 budesonide-formoterol [Symbicort] 80-4.5 mcg/actuation HFA aerosol inhaler 2 inh inhalation BID Qty: 10.2 RF: 1 Continued Lantus U-100 Insulin 100 unit/mL Solution 20 unit SUBCUT QAM RF: 0 metformin 1,000 mg Tablet 1,000 mg PO BIDM RF: 0 doxepin 50 mg capsule 100 mg PO HS RF: 0 venlafaxine [Effexor XR] 37.5 mg capsule,extended release 24hr 37.5 mg PO DAILY RF: 0 prazosin [Minipress] 1 mg capsule 1 mg PO DAILY RF: 0 hydroxyzine pamoate [Vistaril] 25 mg capsule 25 mg PO TID PRN (Reason: Anxiety) RF: 0 gabapentin [Neurontin] 300 mg capsule 300 mg PO TID RF: 0 buprenorphine-naloxone 8-2 mg film 1.5 film sublingual DAILY RF: 0 Discharge Orders: Discharge Order (Routine); Ordered 12/02/20 Ordered By: Bryan Swann Admission Data Admit Date/Time: 12/01/20 14:31 Attending Provider: Bryan Swann Admit Provider: Damon Doherty Primary Care Provider: Carolann Louis Other Providers: Damon Doherty Other Interventions: Discharge Summary Assessment (RN) Last Done: 12/02/20 13:23 Coding Level of Care Code D/C DAY MANAGEMENT >30 MINS Diagnoses COPD exacerbation J44.1 Blood culture positive for microorganism R79.89 HTN (hypertension) I10 DM (diabetes mellitus) E11.9 Major depressive disorder, recurrent episode with anxious distress F33.9 Lactic acidosis E87.2 Pulmonary nodule less than 6 mm in diameter with high risk for malignant neoplasm R91.1; Z91.89 Chronic back pain M54.9; G89.29 Tobacco dependence F17.200 HLD (hyperlipidemia) E78.5 DVT prophylaxis Z29.9
== END 2020-12-02 15:22 | disposition home or self-care (01) ==
LOC: ED 15:32 → 2S 15:32 → SUATTDRO 18:53 → 2S 20:51 → 3W 12-01 18:10